=== PATIENT | male | born 1960 | race American Indian/Alaskan Native ===

== ENCOUNTER 2018-09-04 19:07 | Emergency (ER) | payer SELFPAY ==
[2018-09-04] MEDS ORDERED: DUONEB *Not for PRN Use IH ONE ×2 (19:40→19:52)
[2018-09-04] MEDS ORDERED: PROVENTIL IH ONE (20:48)
[2018-09-04] MEDS ORDERED: DECADRON IV ONE (20:48)
[2018-09-04] MEDS ORDERED: TYLENOL #3 PO ONE (20:48)
--- NOTE | 2018-09-04 21:00 | XRay Report ---
PROCEDURE: XR CHEST ROUTINE 2V TECHNIQUE: PA and lateral chest radiographs were obtained. HISTORY: IRMA COMPARISONS: None. FINDINGS: The heart is enlarged. The pulmonary vasculature is not distended. Diffuse patchy alveolar densities are present in the perihilar regions bilaterally. Some of the densities are somewhat nodular. No effu sions are identified. Pulmonary vasculature not significantly distended. No acute bone abnormalities are seen. Degenerative changes are visualized in the thoracic spine. IMPRESSION: Cardiomegaly. Diffuse patchy alveolar densities perihilar regions suggesting pneumonia. Some of the densities are s lightly nodular in appearance. Follow-up chest x-ray recommended to ensure this resolves and there ar e no underlying pulmonary nodules.. This document is electronically signed by Pilo Weldon MD., September 04 2018 08:58:43 PM ET
[2018-09-04] MEDS ORDERED: ATROVENT IH ONE (21:03)
--- NOTE | 2018-09-04 22:12 | Emergency Department Report ---
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 and started coughing and wheezing 2 days ago his albuterol inhaler however on a medication at this time there is no fever no chills no nausea vomiting no chest pain symptoms are relieved temporarily by albuterol inhaler to symptoms are exacerbated by inflammatory exposure Complaint: shortness of breath (wheezing ) Onset/Timin -: days(s) Severity: moderate Quality: other (wheezing ) Consistency: constant Improves With: medication Worsens With: other (environmental exposure ) Known History Of: COPD, other (bronchitis ) Context: recent URI Associated Symptoms: cough, other (sob, wheezing ) Treatments Prior to Arrival: none - Related Data Home Oxygen Therapy: No Previous Rx's Medication Instructions Recorded Last Taken Type ALBUTEROL Inhaler (OR & NICU) 2 puff IH QID PRN #25 inh 09/04/18 Unknown Rx [ProAir HFA Inhaler] ALBUTEROL NEB's [Proventil 0.083% 2.5 mg IH Q4H PRN #1 vial 09/04/18 Unknown Rx NEBS] Azithromycin [Zithromax Z-SHALINI] 250 mg PO DAILY 5 Days #6 tab 09/04/18 Unknown Rx Benzonatate [Tessalon Perles] 100 mg PO Q8HR PRN #30 capsule 09/04/18 Unknown Rx Ibuprofen [Motrin 800 MG tab] 800 mg PO Q8HR PRN #30 tablet 09/04/18 Unknown Rx Nebulizer Accessories [Aeroneb Go] 1 each MC PRN PRN #1 each 09/04/18 Unknown Rx Nebulizer Accessories [Sootheneb 1 each MC PRN PRN #1 each 09/04/18 Unknown Rx [id number] Adult Mask] Allergies Allergy/AdvReac Type Severity Reaction Status Date / Time No Known Allergies Allergy Unverified 09/04/18 20:01 ED Review of Systems ROS: Stated complaint: IRMA Other details as noted in HPI Constitutional: denies: chills, fever Eyes: denies: eye pain, eye discharge, vision change ENT: congestion Respiratory: cough, shortness of breath, wheezing Cardiovascular: denies: chest pain, palpitations Endocrine: no symptoms reported Gastrointestinal: denies: abdominal pain, nausea, diarrhea Genitourinary: denies: urgency, dysuria Musculoskeletal: denies: back pain, joint swelling, arthralgia Skin: denies: rash, lesions Neurological: denies: headache, weakness, paresthesias Psychiatric: denies: anxiety, depression Hematological/Lymphatic: denies: easy bleeding, easy bruising ED Past Medical Hx - Past Medical History Previous Medical History?: No - Surgical History Past Surgical History?: No - Social History Smoking Status: Current Every Day Smoker Substance Use Type: Alcohol - Medications Home Medications: Home Medications Medication Instructions Recorded Confirmed Last Taken Type ALBUTEROL Inhaler (OR & NICU) 2 puff IH QID PRN #25 inh 09/04/18 Unknown Rx [ProAir HFA Inhaler] ALBUTEROL NEB's [Proventil 0.083% 2.5 mg IH Q4H PRN #1 vial 09/04/18 Unknown Rx NEBS] Azithromycin [Zithromax Z-SHALINI] 250 mg PO DAILY 5 Days #6 tab 09/04/18 Unknown Rx Benzonatate [Tessalon Perles] 100 mg PO Q8HR PRN #30 capsule 09/04/18 Unknown Rx Ibuprofen [Motrin 800 MG tab] 800 mg PO Q8HR PRN #30 tablet 09/04/18 Unknown Rx Nebulizer Accessories [Aeroneb Go] 1 each MC PRN PRN #1 each 09/04/18 Unknown Rx Nebulizer Accessories [Sootheneb 1 each MC PRN PRN #1 each 09/04/18 Unknown Rx [id number] Adult Mask] ED Physical Exam - General Limitations: No Limitations General appearance: alert, in no apparent distress - Head Head exam: Present: normocephalic, normal inspection - Eye Eye exam: Present: normal appearance, PERRL, EOMI. Absent: conjunctival injection, nystagmus Pupils: Present: normal accommodation - ENT ENT exam: Present: normal orophraynx, mucous membranes moist, TM's normal bilat erally, normal external ear exam - Neck Neck exam: Present: normal inspection, full ROM, lymphadenopathy. Absent: tenderness, meningismus, thyromegaly - Respiratory Respiratory exam: Present: normal lung sounds bilaterally, wheezes, prolonged expiratory. Absent: respiratory distress, rales, rhonchi, stridor, chest wall tenderness - Cardiovascular Cardiovascular Exam: Present: normal rhythm, tachycardia. Absent: systolic murmur, diastolic murmur, rubs, gallop - GI/Abdominal GI/Abdominal exam: Present: soft, normal bowel sounds. Absent: distended, tenderness, guarding, rebound, rigid, bruit, hernia - Rectal Rectal exam: Present: deferred - Extremities Exam Extremities exam: Present: normal inspection, full ROM, normal capillary refill - Back Exam Back exam: Present: normal inspection, full ROM. Absent: tenderness, CVA tenderness (R), CVA tenderness (L), rash noted - Neurological Exam Neurological exam: Present: alert, oriented X3, normal gait, reflexes normal. Absent: motor sensory deficit - Psychiatric Psychiatric exam: Present: normal affect, normal mood - Skin Skin exam: Present: warm, dry, intact, normal color. Absent: rash ED Course Vital Signs 09/04/18 09/04/18 09/04/18 19:33 19:40 19:54 Temperature 97.9 F Pulse Rate 105 H Pulse Rate [ 110 H 106 H Posterior Bilateral Throughout] Respiratory 18 Rate Respiratory 20 18 Rate [Posterior Bilateral Throughout] Blood Pressure 157/94 O2 Sat by Pulse 98 Oximetry 09/04/18 09/04/18 21:03 21:14 Temperature Pulse Rate Pulse Rate [ 104 H Posterior Bilateral Throughout] Respiratory 20 Rate Respiratory 18 Rate [Posterior Bilateral Throughout] Blood Pressure O2 Sat by Pulse Oximetry ED Medical Decision Making - Radiology Data Radiology results: report reviewed, image reviewed Ordering Physician: ALEKSEY HOLCOMB Date of Service: 09/04/18 Procedure(s): XR chest routine 2V Accession Number(s): [id number] cc: ALEKSEY HOLCOMB Fluoro Time In Minutes: PROCEDURE: XR CHEST ROUTINE 2V TECHNIQUE: PA and lateral chest radiographs were obtained. HISTORY: cchest pain COMPARISONS: None. FINDINGS: Heart: Normal. Mediastinum/Vessels: Normal. Lungs/Pleural space: Normal. Bony thorax: No acute osseous abnormality. IMPRESSION: Normal examination. This document is electronically signed by Surya Carballo MD., September 04 2018 07:57:44 PM ET Transcribed By: JDK Dictated By: MARIA M CARBALLO MD Electronically Authenticated By: MARIA M CARBALLO MD Signed Date/Time: 09/04/181958 DD/ 37 TD/TT: 09/04/181950 - Medical Decision Making Breathig is greatly improved with Nebulizer treatments and steroids given in ed, pt wheezing resolved, cxr : CAP, plan rocephin 1 gm given in in ed ivpb, will dc to home albuterol inhaler, azithromycin, Tessalon pearls, and ibuprofen prn, pt will follow with pcp in 2-3 days return to ed if symptoms worsen. Pt verbalized agreement and understanding of discharge plan. Critical care attestation.: If time is entered above; I have spent that time in minutes in the direct care of this critically ill patient, excluding procedure time. ED Disposition Clinical Impression: CAP (community acquired pneumonia) Qualifiers: Laterality: right Lung location: upper lobe of lung Qualified Code(s): J18.1 - Lobar pneumonia, unspecified organism URI (upper respiratory infection) Qualifiers: URI type: unspecified viral URI Qualified Code(s): J06.9 - Acute upper respiratory infection, unspecified Disposition: DC-01 TO HOME OR SELFCARE Is pt being admited?: No Does the pt Need Aspirin: No Condition: Stable Instructions: Community-acquired Pneumonia (ED), Upper Respiratory Infection (ED) Prescriptions: Nebulizer Accessories [Aeroneb Go] 1 each MC PRN PRN #1 each PRN Reason: as needed Ibuprofen [Motrin 800 MG tab] 800 mg PO Q8HR PRN #30 tablet PRN Reason: pain fever ALBUTEROL Inhaler (OR & NICU) [ProAir HFA Inhaler] 2 puff IH QID PRN #25 inh PRN Reason: Shortness Of Breath wheezing ALBUTEROL NEB's [Proventil 0.083% NEBS] 2.5 mg IH Q4H PRN #1 vial PRN Reason: shortness of breath wheezing Nebulizer Accessories [Sootheneb [id number] Adult Mask] 1 each MC PRN PRN #1 each PRN Reason: as needed Benzonatate [Tessalon Perles] 100 mg PO Q8HR PRN #30 capsule PRN Reason: Cough Azithromycin [Zithromax Z-SHALINI] 250 mg PO DAILY 5 Days #6 tab Referrals: ALEIDA LOYOLA MD [Staff Physician] - 3-5 Days Forms: Work/School Release Form(ED) Time of Disposition: 22:26
[2018-09-04] MEDS ORDERED: ROCEPHIN/NS 1 GM/50 ML 1 GM/50 ML BAG IV ONE (22:14)
[2018-09-04] MEDS ORDERED: XYLOCAINE 1% MPF 5 mL INFILTRATI ONE (22:37)
[2018-09-04] MEDS ORDERED: ROCEPHIN IM ONE (22:37)
[2018-09-05 01:23] VITALS: BP 142/79
== END 2018-09-04 23:30 | disposition home or self-care (01) ==
LOC: ED 19:07
DX: J18.1 Lobar pneumonia, unspecified organism (principal); J06.9 Acute upper respiratory infection, unspecified
CPT/HCPCS: 71046; 94640; 96374; 99284; J0696; J1100

== ENCOUNTER 2018-09-11 02:31 | Inpatient (IN) | payer SELFPAY ==
[2018-09-11 03:21] LABS: Basophils # (Auto) 0.1 K/mm3 (0.0-0.1); Basophils % (Auto) 0.9 % (0.0-1.8); Eosinophils # (Auto) 0.4 K/mm3 (0.0-0.4); Eosinophils % (Auto) 4.3 % (0.0-4.3); Hematocrit 29.3 % (35.5-45.6); Hemoglobin 9.9 gm/dl (11.8-15.2); Lymphocytes # (Auto) 1.6 K/mm3 (1.2-5.4); Lymphocytes % (Auto) 18.7 % (13.4-35.0); Mean Corpuscular HGB Conc 34 % (32-34); Mean Corpuscular Volume 75 fl (84-94); Monocytes # (Auto) 0.7 K/mm3 (0.0-0.8); Monocytes % (Auto) 7.6 % (0.0-7.3); Platelet Count 412 K/mm3 (140-440); Red Blood Count 3.89 M/mm3 (3.65-5.03); Red Cell Distribution Width 17.9 % (13.2-15.2)
[2018-09-11 03:22] LABS: BUN/Creatinine Ratio 10; Blood Urea Nitrogen 10 mg/dL (9-20); Calcium 8.3 mg/dL (8.4-10.2); Hemolysis Index 3
--- NOTE | 2018-09-11 03:42 | XRay Report ---
PROCEDURE: XR CHEST ROUTINE 2V TECHNIQUE: PA and lateral chest radiographs were obtained. HISTORY: IRMA COMPARISONS: None. FINDINGS: Heart: Normal. Mediastinum/Vessels: Normal. Lungs/Pleural space: Bilateral scattered infiltrates in both lungs. Mild bilateral effusions.. Bony thorax: No acute osseous abnormality. IMPRESSION: Mild bilateral scattered infiltrates in both lungs. Mild bilateral effusions. This document is electronically signed by Bri Lobato DO., September 11 2018 03:40:53 AM ET
[2018-09-11] MEDS ORDERED: LASIX IV ONE (04:26)
[2018-09-11] MEDS ORDERED: SODIUM CHLORIDE FLUSH SYRINGE 10 ML IV PRN ×2 (05:44→06:08)
[2018-09-11] MEDS ORDERED: TYLENOL PO PRN ×2 (05:44→06:08)
[2018-09-11] MEDS ORDERED: ZOFRAN IV PRN ×2 (05:44→06:08)
[2018-09-11] MEDS ORDERED: PROVENTIL IH PRN (06:08)
--- NOTE | 2018-09-11 06:16 | Emergency Department Report ---
HPI - General Chief Complaint: Dyspnea/Respdistress Time Seen by Provider: 09/11/18 04:27 - HPI HPI: 57-year-old -[place] male presents to the emergency department with complaint of a one-week history of shortness of breath. There is an associated productive cough and the patient also complains of some swelling to the bilateral legs. The patient was seen here a few days ago and was diagnosed with pneumonia. He says that he has been taking his medications and treatment compliantly without much relief. He otherwise denies any past medical history but admits that he does not follow with a primary care physician regularly. He is a tobacco smoker but denies any illicit drug use. He denies any chest pain, fever, nausea, vomiting or diaphoresis. ED Past Medical Hx - Past Medical History Previous Medical History?: Yes Additional medical history: Pneumonia - Surgical History Past Surgical History?: No - Social History Smoking Status: Former Smoker Substance Use Type: None - Medications Home Medications: Home Medications Medication Instructions Recorded Confirmed Last Taken Type ALBUTEROL Inhaler (OR & NICU) 2 puff IH QID PRN #25 inh 09/04/18 09/11/18 Unknown Rx [ProAir HFA Inhaler] ALBUTEROL NEB's [Proventil 0.083% 2.5 mg IH Q4H PRN #1 vial 09/04/18 09/11/18 Unknown Rx NEBS] Benzonatate [Tessalon Perles] 100 mg PO Q8HR PRN #30 capsule 09/04/18 09/11/18 Unknown Rx Ibuprofen [Motrin 800 MG tab] 800 mg PO Q8HR PRN #30 tablet 09/04/18 09/11/18 Unknown Rx Nebulizer Accessories [Aeroneb Go] 1 each MC PRN PRN #1 each 09/04/18 09/11/18 Unknown Rx Nebulizer Accessories [Sootheneb 1 each MC PRN PRN #1 each 09/04/18 09/11/18 Unknown Rx [id number] Adult Mask] ED Review of Systems ROS: Stated complaint: IRMA Other details as noted in HPI Comment: All other systems reviewed and negative Constitutional: denies: chills, fever Eyes: denies: eye pain, vision change ENT: denies: ear pain, throat pain Respiratory: cough, shortness of breath, SOB with exertion Cardiovascular: edema. denies: chest pain Gastrointestinal: denies: abdominal pain, vomiting Genitourinary: denies: dysuria, frequency Musculoskeletal: denies: back pain, arthralgia Skin: denies: rash, lesions Neurological: denies: headache, weakness Physical Exam - Physical Exam Vital Signs: Vital Signs 09/11/18 09/11/18 09/11/18 02:37 03:09 03:30 Temperature 98.6 F 98.4 F Pulse Rate 113 H 105 H 104 H Respiratory 26 H 26 H 23 Rate Blood Pressure 163/89 141/73 Blood Pressure 141/73 [Left] O2 Sat by Pulse 97 95 96 Oximetry 09/11/18 04:00 Temperature Pulse Rate 104 H Respiratory 25 H Rate Blood Pressure 136/83 Blood Pressure [Left] O2 Sat by Pulse 96 Oximetry Physical Exam: GENERAL: The patient is well-developed well-nourished. HENT: Normocephalic. Atraumatic. Patient has moist mucous membranes. EYES: Extraocular motions are intact. Pupils equal reactive to light bilaterally. NECK: Supple. Trachea is midline. CHEST/LUNGS: Coarse breath sounds throughout the chest. No tachypnea or acces brannon muscle use. There is no respiratory distress noted. HEART/CARDIOVASCULAR: Regular. There is no tachycardia. There is no murmur. ABDOMEN: Abdomen is soft, nontender. Patient has normal bowel sounds. There is no abdominal distention. SKIN: One to 2+ pitting edema of the bilateral lower extremities. NEURO: The patient is awake, alert, and oriented. The patient is cooperative. The patient has no focal neurologic deficits. The patient has normal speech. MUSCULOSKELETAL: There is no tenderness or deformity. There is no evidence of acute injury. ED Course Vital Signs 09/11/18 09/11/18 09/11/18 02:37 03:09 03:30 Temperature 98.6 F 98.4 F Pulse Rate 113 H 105 H 104 H Respiratory 26 H 26 H 23 Rate Blood Pressure 163/89 141/73 Blood Pressure 141/73 [Left] O2 Sat by Pulse 97 95 96 Oximetry 09/11/18 04:00 Temperature Pulse Rate 104 H Respiratory 25 H Rate Blood Pressure 136/83 Blood Pressure [Left] O2 Sat by Pulse 96 Oximetry ED Medical Decision Making - Lab Data Result diagrams: 09/11/18 02:51 09/11/18 02:51 - EKG Data -: EKG Interpreted by Sd EKG shows normal: sinus rhythm, axis, intervals (prolonged QTC), QRS complexes, ST-T waves Rate: tachycardia (108 bpm) - EKG Data When compared to previous EKG there are: previous EKG unavailable Interpretation: other (sinus tachycardia, prolonged QTC, no ST elevation IL) - Radiology Data Radiology results: report reviewed PROCEDURE: XR CHEST ROUTINE 2V TECHNIQUE: PA and lateral chest radiographs were obtained. HISTORY: IRMA COMPARISONS: None. FINDINGS: Heart: Normal. Mediastinum/Vessels: Normal. Lungs/Pleural space: Bilateral scattered infiltrates in both lungs. Mild bilateral effusions.. Bony thorax: No acute osseous abnormality. IMPRESSION: Mild bilateral scattered infiltrates in both lungs. Mild bilateral effusions. This document is electronically signed by Bri Lobato DO., September 11 2018 03:40:53 AM ET Transcribed By: [facility] Dictated By: BRI LOBATO MD Electronically Authenticated By: BRI LOBATO MD Signed Date/Time: 09/11/18 0342 - Medical Decision Making This patient presents to the emergency department with some continued shortness of breath even after finishing his treatment for some recently diagnosed pneumonia. He has coarse breath sounds on examination. He has 1-2+ pitting edema bilateral lower extremities. Chest x-ray today may still show some residual infiltrates but otherwise shows some pulmonary vascular congestion and pulmonary edema concerning for CHF. Labs show some mild anemia the patient has a BNP level of greater than 2700. An IV was placed and he was given some Lasix to start diuresis. Patient did have a slightly elevated and equivocal d-dimer level and has been set up to have a VQ scan this morning. However the patient will be admitted to the hospital for further evaluation and possible echocardiogram or cardiology consultation. He was accepted for admission by the hospitalist service. - Differential Diagnosis CHF, pneumonia, bronchitis, PE Critical Care Time: No Critical care attestation.: If time is entered above; I have spent that time in minutes in the direct care of this critically ill patient, excluding procedure time. ED Disposition Clinical Impression: New onset of congestive heart failure, Tobacco use Anemia Qualifiers: Anemia type: unspecified type Qualified Code(s): D64.9 - Anemia, unspecified Dyspnea Qualifiers: Dyspnea type: shortness of breath Qualified Code(s): R06.02 - Shortness of breath; R06.00 - Dyspnea, unspecified; R06.01 - Orthopnea Disposition: DC-09 OP ADMIT IP TO THIS HOSP Is pt being admited?: Yes Condition: Fair Referrals: MONTY ALFONSO JR, MD [Primary Care Provider] - 3-5 Days Time of Disposition: 06:17
--- NOTE | 2018-09-11 06:28 | History and Physical Report ---
<MEGAN MARY - Last Filed: 09/11/18 06:20> History of Present Illness Date of examination: 09/11/18 Date of admission: 09/11/2018 Chief complaint: Bilateral lower extremity edema, shortness of breath History of present illness: 57-year-old -[place] male who is an ongoing smoker with history of COPD presents to [facility] ED with complaints of bilateral lower extremity edema and shortness of breath with activity. Patient states that for the past 3 days he has been experiencing worsening bilateral lower extremity edema and shortness of breath with exertion. Patient states that he is unable to take out the garbage without becoming short of breath. He denies any previous cardiac history or workup. 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 Patient also complains of wheezing and cough with yellow sputum production. Of note patient was seen in ED on 09/04 t reated for pneumonia. Denies: Fever, nausea, vomiting, diarrhea, headache, or hemoptysis Past History Past Medical History: COPD Past Surgical History: No surgical history Social history: , lives with family, smoking (current everyday smoker) Family history: no significant family history Medications and Allergies Allergies Allergy/AdvReac Type Severity Reaction Status Date / Time No Known Allergies Allergy Unverified 09/04/18 20:01 Home Medications Medication Instructions Recorded Confirmed Last Taken Type ALBUTEROL Inhaler (OR & NICU) 2 puff IH QID PRN #25 inh 09/04/18 09/11/18 Unknown Rx [ProAir HFA Inhaler] ALBUTEROL NEB's [Proventil 0.083% 2.5 mg IH Q4H PRN #1 vial 09/04/18 09/11/18 Unknown Rx NEBS] Benzonatate [Tessalon Perles] 100 mg PO Q8HR PRN #30 capsule 09/04/18 09/11/18 Unknown Rx Ibuprofen [Motrin 800 MG tab] 800 mg PO Q8HR PRN #30 tablet 09/04/18 09/11/18 Unknown Rx Nebulizer Accessories [Aeroneb Go] 1 each MC PRN PRN #1 each 09/04/18 09/11/18 Unknown Rx Nebulizer Accessories [Sootheneb 1 each MC PRN PRN #1 each 09/04/18 09/11/18 Unknown Rx [id number] Adult Mask] Active Meds: Active Medications Acetaminophen (Tylenol) 650 mg PO Q4H PRN PRN Reason: Pain MILD(1-3)/Fever >100.5/[place] Albuterol (Proventil) 2.5 mg IH Q4HRT PRN PRN Reason: Shortness Of Breath Albuterol/Ipratropium (Duoneb *Not For Prn Use*) 1 ampul IH Q6HRT [facility] Aspirin (Baby Aspirin) 81 mg PO QDAY [facility] Budesonide (Pulmicort) 0.5 mg IH Q12HRT [facility] Docusate Sodium (Colace) 100 mg PO BID [facility] Furosemide (Lasix) 40 mg IV 0600,1800 [facility] Guaifenesin (Mucinex Er) 600 mg PO BID [facility] Levofloxacin/Dextrose (Levaquin 500mg/100ml) 500 mg in 100 mls @ 100 mls/hr IV Q24HR [facility]; Protocol Methylprednisolone Sodium Succinate (Solu-Medrol) 60 mg IV Q8HR [facility] Metoprolol Succinate (Toprol Xl) 25 mg PO QDAY [facility] Ondansetron HCl (Zofran) 4 mg IV Q8H PRN PRN Reason: Nausea And Vomiting Sodium Chloride (Sodium Chloride Flush Syringe 10 Ml) 10 ml IV BID [facility] Sodium Chloride (Sodium Chloride Flush Syringe 10 Ml) 10 ml IV PRN PRN PRN Reason: LINE FLUSH Review of Systems All systems: negative (reviewed and no additional remarkable complaints except as noted below) Cardiovascular: edema, shortness of breath, dyspnea on exertion, leg edema (bilateral lower extremity) Respiratory: cough with sputum (yellow sputum), shortness of breath, dyspnea on exertion, wheezing Exam - Physical Exam Narrative exam: Physical exam General appearance: Present: No acute distress, alert and oriented 3, pleasant middle age -[place] male - EENT Eyes: Present: PERRL, EOM intact ENT: hearing intact, normal dentition - Neck Neck: Present: supple, normal ROM - Respiratory Respiratory effort: Non-labored Respiratory: Scattered wheezes and faint right basilar crackles - Cardiovascular Heart rate: 108 (bpm) Rhythm: Sinus tach Heart Sounds: Present: S1 & S2. Absent: rub, click - Extremities Extremities: no ischemia, pulses intact, abnormal (bilateral lower extremity pitting edema) - Peripheral Assessment Peripheral Pulses: within normal limits - Abdominal General gastrointestinal: soft, non-tender, normal bowel sounds - Integumentary Integumentary: Present: warm, dry - Musculoskeletal Musculoskeletal: Able to move all extremities -Neurological Neurological: CN II-XII intact - Psychiatric Psychiatric: cooperative - Constitutional Vitals: Temp Pulse Resp BP Pulse Ox 98.4 F 104 H 25 H 136/83 96 09/11/18 03:09 09/11/18 04:00 09/11/18 04:00 09/11/18 04:00 09/11/18 04:00 Results - Labs CBC & Chem 7: 09/11/18 02:51 09/11/18 02:51 Labs: Laboratory Last Values WBC 8.8 K/mm3 (4.5-11.0) 09/11/18 02:51 RBC 3.89 M/mm3 (3.65-5.03) 09/11/18 02:51 Hgb 9.9 gm/dl (11.8-15.2) L 09/11/18 02:51 Hct 29.3 % (35.5-45.6) L 09/11/18 02:51 MCV 75 fl (84-94) L 09/11/18 02:51 MCH 25 pg (28-32) L 09/11/18 02:51 MCHC 34 % (32-34) 09/11/18 02:51 RDW 17.9 % (13.2-15.2) H 09/11/18 02:51 Plt Count 412 K/mm3 (140-440) 09/11/18 02:51 Lymph % (Auto) 18.7 % (13.4-35.0) 09/11/18 02:51 [place] % (Auto) 7.6 % (0.0-7.3) H 09/11/18 02:51 Eos % (Auto) 4.3 % (0.0-4.3) 09/11/18 02:51 Baso % (Auto) 0.9 % (0.0-1.8) 09/11/18 02:51 Lymph # 1.6 K/mm3 (1.2-5.4) 09/11/18 02:51 [place] # 0.7 K/mm3 (0.0-0.8) 09/11/18 02:51 Eos # 0.4 K/mm3 (0.0-0.4) 09/11/18 02:51 Baso # 0.1 K/mm3 (0.0-0.1) 09/11/18 02:51 Seg Neutrophils % 68.5 % (40.0-70.0) 09/11/18 02:51 Seg Neutrophils # 6.0 K/mm3 (1.8-7.7) 09/11/18 02:51 381.33 ng/mlDDU (0-234) H 09/11/18 04:33 Sodium 138 mmol/L (137-145) 09/11/18 02:51 Potassium 3.7 mmol/L (3.6-5.0) 09/11/18 02:51 Chloride 101.2 mmol/L (98-107) 09/11/18 02:51 Carbon Dioxide 23 mmol/L (22-30) 09/11/18 02:51 18 mmol/L 09/11/18 02:51 BUN 10 mg/dL (9-20) 09/11/18 02:51 1.0 mg/dL (0.8-1.5) 09/11/18 02:51 Estimated GFR > 60 ml/min 09/11/18 02:51 10 % 09/11/18 02:51 Glucose 99 mg/dL (75-100) 09/11/18 02:51 Calcium 8.3 mg/dL (8.4-10.2) L 09/11/18 02:51 < 0.010 ng/mL (0.00-0.029) 09/11/18 04:33 NT-Pro-B Natriuret Pep 2708 pg/mL (0-900) H 09/11/18 02:51 - Imaging and Cardiology EKG: image reviewed (sinus tachycardia 108 bpm) Chest x-ray: report reviewed ( Mild bilateral scattered infiltrates in both lungs. Mild bilateral effusions. ), image reviewed Assessment and Plan Assessment and plan: 57-year-old -[place] male who is an ongoing smoker with history of COPD presents to [facility] ED with complaints of bilateral lower extremity edema and shortness of breath with activity. On examination patient has bilateral 3+ pitting edema. Profound elevation in BNP at 278. D-dimer is also elevated at 381.3. EKG unremarkable for acute ischemic abnormalities. CXR shows mild bi lateral infiltrates. Will admit to Telemetry. Acute CHF-new onset Acute exacerbation COPD Hypertension Anemia Elevated d-dimer Elevated BNP R/O PE Tobacco abuse Plan: Continue supportive care Consult cardiology pending Echocardiogram pending VQ scan pending Trend troponin Monitor BP Start metoprolol 25 mg daily Start IV Lasix 40mg daily ASA 81mg Start Levaquin 500 mg every 24 hours Scheduled DuoNeb nebs and Pulmicort, albuterol when necessary Solu-Medrol 60 mg every 8 hours Mucinex Monitor electrolytes, replete as needed Monitor hemoglobin, transfuse as needed Counseled for smoking cessation, refuses nicotine patch DVT PPX on Lovenox Advance Directives: No VTE prophylaxis?: Chemical Reason for no VTE Prophylaxis: Surgical contraindication Plan of care discussed with patient/family: Yes <RENATO GRAYSON - Last Filed: 09/11/18 21:07> History of Present Illness Date of admission: 09/11/18 05:44 Medications and Allergies Active Meds: Active Medications Acetaminophen (Tylenol) 650 mg PO Q4H PRN PRN Reason: Pain MILD(1-3)/Fever >100.5/[place] Albuterol (Proventil) 2.5 mg IH Q4HRT PRN PRN Reason: Shortness Of Breath Last Admin: 09/11/18 16:25 Dose: 2.5 mg Documented by: Albuterol/Ipratropium (Duoneb *Not For Prn Use*) 1 ampul IH Q12HRT [facility] Last Admin: 09/11/18 20:55 Dose: Not Given Documented by: Aspirin (Baby Aspirin) 81 mg PO QDAY [facility] Last Admin: 09/11/18 10:38 Dose: 81 mg Documented by: Budesonide (Pulmicort) 0.5 mg IH Q12HRT [facility] Last Admin: 09/11/18 20:55 Dose: Not Given Documented by: Docusate Sodium (Colace) 100 mg PO BID [facility] Last Admin: 09/11/18 11:45 Dose: Not Given Documented by: Enoxaparin Sodium (Lovenox) 100 mg SUB-Q Q12HR [facility] Last Admin: 09/11/18 14:18 Dose: 100 mg Documented by: Furosemide (Lasix) 40 mg IV DAILY [facility] Last Admin: 09/11/18 10:38 Dose: 40 mg Documented by: Guaifenesin (Mucinex Er) 600 mg PO BID [facility] Last Admin: 09/11/18 10:49 Dose: 600 mg Documented by: Levofloxacin/Dextrose (Levaquin 500mg/100ml) 500 mg in 100 mls @ 100 mls/hr IV Q24HR [facility]; Protocol Last Admin: 09/11/18 10:38 Dose: 100 mls/hr Documented by: Methylprednisolone Sodium Succinate (Solu-Medrol) 20 mg IV Q8H [facility] Last Admin: 09/11/18 10:37 Dose: 20 mg Documented by: Metoprolol Succinate (Toprol Xl) 25 mg PO QDAY [facility] Last Admin: 09/11/18 14:30 Dose: 25 mg Documented by: Ondansetron HCl (Zofran) 4 mg IV Q8H PRN PRN Reason: Nausea And Vomiting Sodium Chloride (Sodium Chloride Flush Syringe 10 Ml) 10 ml IV BID [facility] Last Admin: 09/11/18 11:45 Dose: 10 ml Documented by: Sodium Chloride (Sodium Chloride Flush Syringe 10 Ml) 10 ml IV PRN PRN PRN Reason: LINE FLUSH Exam - Constitutional Vitals: Temp Pulse Resp BP Pulse Ox 98.2 F 103 H 17 161/104 100 09/11/18 19:00 09/11/18 17:07 09/11/18 16:20 09/11/18 17:07 09/11/18 20:58 Results - Labs CBC & Chem 7: 09/11/18 02:51 09/11/18 02:51 Labs: Laboratory Last Values WBC 8.8 K/mm3 (4.5-11.0) 09/11/18 02:51 RBC 3.89 M/mm3 (3.65-5.03) 09/11/18 02:51 Hgb 9.9 gm/dl (11.8-15.2) L 09/11/18 02:51 Hct 29.3 % (35.5-45.6) L 09/11/18 02:51 MCV 75 fl (84-94) L 09/11/18 02:51 MCH 25 pg (28-32) L 09/11/18 02:51 MCHC 34 % (32-34) 09/11/18 02:51 RDW 17.9 % (13.2-15.2) H 09/11/18 02:51 Plt Count 412 K/mm3 (140-440) 09/11/18 02:51 Lymph % (Auto) 18.7 % (13.4-35.0) 09/11/18 02:51 [place] % (Auto) 7.6 % (0.0-7.3) H 09/11/18 02:51 Eos % (Auto) 4.3 % (0.0-4.3) 09/11/18 02:51 Baso % (Auto) 0.9 % (0.0-1.8) 09/11/18 02:51 Lymph # 1.6 K/mm3 (1.2-5.4) 09/11/18 02:51 [place] # 0.7 K/mm3 (0.0-0.8) 09/11/18 02:51 Eos # 0.4 K/mm3 (0.0-0.4) 09/11/18 02:51 Baso # 0.1 K/mm3 (0.0-0.1) 09/11/18 02:51 Seg Neutrophils % 68.5 % (40.0-70.0) 09/11/18 02:51 Seg Neutrophils # 6.0 K/mm3 (1.8-7.7) 09/11/18 02:51 381.33 ng/mlDDU (0-234) H 09/11/18 04:33 Sodium 138 mmol/L (137-145) 09/11/18 02:51 Potassium 3.7 mmol/L (3.6-5.0) 09/11/18 02:51 Chloride 101.2 mmol/L (98-107) 09/11/18 02:51 Carbon Dioxide 23 mmol/L (22-30) 09/11/18 02:51 18 mmol/L 09/11/18 02:51 BUN 10 mg/dL (9-20) 09/11/18 02:51 1.0 mg/dL (0.8-1.5) 09/11/18 02:51 Estimated GFR > 60 ml/min 09/11/18 02:51 10 % 09/11/18 02:51 Glucose 99 mg/dL (75-100) 09/11/18 02:51 Calcium 8.3 mg/dL (8.4-10.2) L 09/11/18 02:51 < 0.010 ng/mL (0.00-0.029) 09/11/18 07:23 NT-Pro-B Natriuret Pep 2708 pg/mL (0-900) H 09/11/18 02:51 Assessment and Plan Assessment and plan: I personally discussed the patient with the DRUM SAW OPERATOR-C. I agree with the above assessment and plan
[2018-09-11] MEDS ORDERED: DUONEB *Not for PRN Use IH SCH (08:00)
--- NOTE | 2018-09-11 08:45 | Progress Note ---
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 He was admitted for CHF * CXR 2view Impression: Mild bilateral scattered infiltrates in both lungs. Mild bilateral effusions. * Initial labs: D-Dimer 381.33, proBNP 2708, hgb 9.9 with MCV 75 normal plt, wbc * v/q scan intermediate for PE (in the setting of abnormal cxr, not really sure; therefore, treat for PE until CTA chest is available) Acute CHF-new onset, suspect systolic: treat with iv lasix, get ECHO, Cardiology consulted Acute exacerbation COPD, high complex medical decision, using steroids will worsen CHF via fluid retention: use nebs, abx and lower dose steroids Hypertension: low salt diet, careful starting bblocker in acute CHF Anemia, microcytic: [employer] Superintendent on stop smoking and getting a outpatient Colonoscopy Elevated d-dimer, R/O PE, v/q scan intermediate, CT not available due to staffing: start therapeutic sq Lovenox. Tobacco abuse, Counseled for smoking cessation, refuses nicotine patch DVT PPX on Lovenox prolonged inpatient services 32 minutes History Interval history: Patient was seen and examined. Follow-up on current diagnosis of CHF. No overnight events reported to me. Patient denies any chest pain, shortness breath, nausea/vomiting or severe headaches. Imaging, nursing note, chart, labs and old chart reviewed. Discussed with patient. Hospitalist Physical - Physical exam Narrative exam: Gen: WDWN, NAD, Awake, Alert, Orientated HEENT: NCAT, EOMI, PERRL, OP Clear Neck: supple, no adenopathy, no thyromegaly, JVD CVS/Heart: Regular tachycardia, normal S1S2, pulses present bilaterally Chest/Lungs: bibasilar crackles, diminished bs Symmetrical chest expansion, good air entry bilaterally GI/Abdomen: soft, NTND, good bowel sounds, no guarding or rebound /Bladder: no suprapubic tenderness, no CVA or paraspinal tenderness Extermity/Skin: +pitting BLE edema, no obvious rash MSK: FROM x 4 Neuro: CN 2-12 grossly intact, no new focal deficits Psych: calm - Constitutional Vitals: Temp Pulse Resp BP Pulse Ox 98.7 F 110 H 18 113/65 94 09/11/18 08:00 09/11/18 08:00 09/11/18 08:00 09/11/18 08:00 09/11/18 08:00 Results - Labs CBC & Chem 7: 09/11/18 02:51 09/11/18 02:51 Labs: Laboratory Last Values WBC 8.8 K/mm3 (4.5-11.0) 09/11/18 02:51 RBC 3.89 M/mm3 (3.65-5.03) 09/11/18 02:51 Hgb 9.9 gm/dl (11.8-15.2) L 09/11/18 02:51 Hct 29.3 % (35.5-45.6) L 09/11/18 02:51 MCV 75 fl (84-94) L 09/11/18 02:51 MCH 25 pg (28-32) L 09/11/18 02:51 MCHC 34 % (32-34) 09/11/18 02:51 RDW 17.9 % (13.2-15.2) H 09/11/18 02:51 Plt Count 412 K/mm3 (140-440) 09/11/18 02:51 Lymph % (Auto) 18.7 % (13.4-35.0) 09/11/18 02:51 [place] % (Auto) 7.6 % (0.0-7.3) H 09/11/18 02:51 Eos % (Auto) 4.3 % (0.0-4.3) 09/11/18 02:51 Baso % (Auto) 0.9 % (0.0-1.8) 09/11/18 02:51 Lymph # 1.6 K/mm3 (1.2-5.4) 09/11/18 02:51 [place] # 0.7 K/mm3 (0.0-0.8) 09/11/18 02:51 Eos # 0.4 K/mm3 (0.0-0.4) 09/11/18 02:51 Baso # 0.1 K/mm3 (0.0-0.1) 09/11/18 02:51 Seg Neutrophils % 68.5 % (40.0-70.0) 09/11/18 02:51 Seg Neutrophils # 6.0 K/mm3 (1.8-7.7) 09/11/18 02:51 381.33 ng/mlDDU (0-234) H 09/11/18 04:33 Sodium 138 mmol/L (137-145) 09/11/18 02:51 Potassium 3.7 mmol/L (3.6-5.0) 09/11/18 02:51 Chloride 101.2 mmol/L (98-107) 09/11/18 02:51 Carbon Dioxide 23 mmol/L (22-30) 09/11/18 02:51 18 mmol/L 09/11/18 02:51 BUN 10 mg/dL (9-20) 09/11/18 02:51 1.0 mg/dL (0.8-1.5) 09/11/18 02:51 Estimated GFR > 60 ml/min 09/11/18 02:51 10 % 09/11/18 02:51 Glucose 99 mg/dL (75-100) 09/11/18 02:51 Calcium 8.3 mg/dL (8.4-10.2) L 09/11/18 02:51 < 0.010 ng/mL (0.00-0.029) 09/11/18 07:23 NT-Pro-B Natriuret Pep 2708 pg/mL (0-900) H 09/11/18 02:51 Active Medications - Current Medications Current Medications: Generic Name Dose Route Start Last Admin Trade Name Freq PRN Reason Stop Dose Admin Acetaminophen 650 mg 09/11/18 05:44 Tylenol PO Q4H PRN Pain MILD(1-3)/Fever >100.5/[place] Albuterol 2.5 mg 09/11/18 06:08 Proventil IH Q4HRT PRN Shortness Of Breath Albuterol/Ipratropium 1 ampul 09/11/18 08:00 09/11/18 08:17 Duoneb *Not For Prn Use* IH 1 ampul Q6HRT [facility] Administration Aspirin 81 mg 09/11/18 10:00 Baby Aspirin PO QDAY [facility] Budesonide 0.5 mg 09/11/18 08:00 Pulmicort IH Q12HRT [facility] Docusate Sodium 100 mg 09/11/18 10:00 Colace PO BID [facility] Enoxaparin Sodium 40 mg 09/11/18 22:00 Lovenox SUB-Q QDAY@2200 [facility] Furosemide 40 mg 09/11/18 10:00 Lasix IV DAILY [facility] Guaifenesin 600 mg 09/11/18 10:00 Mucinex Er PO BID [facility] Levofloxacin/Dextrose 500 mg in 100 mls @ 100 mls/hr 09/11/18 10:00 Levaquin 500mg/100ml IV Q24HR [facility] Protocol Methylprednisolone Sodium Succinate 60 mg 09/11/18 14:00 Solu-Medrol IV Q8HR [facility] Metoprolol Succinate 25 mg 09/11/18 10:00 Toprol Xl PO QDAY [facility] Ondansetron HCl 4 mg 09/11/18 05:44 Zofran IV Q8H PRN Nausea And Vomiting Sodium Chloride 10 ml 09/11/18 10:00 Sodium Chloride Flush Syringe 10 Ml IV BID [facility] Sodium Chloride 10 ml 09/11/18 05:44 Sodium Chloride Flush Syringe 10 Ml IV PRN PRN LINE FLUSH
[2018-09-11] MEDS ORDERED: SODIUM CHLORIDE FLUSH SYRINGE 10 ML IV SCH (10:00)
[2018-09-11] MEDS ORDERED: SOLU-Medrol ONE (10:17)
[2018-09-11] MEDS ORDERED: BABY ASPIRIN ONE (10:17)
[2018-09-11] MEDS ORDERED: LASIX ONE (10:18)
[2018-09-11] MEDS ORDERED: LEVAQUIN 500MG/100ML 500 MG/100 ML BAG IV ONE (10:18)
[2018-09-11] MEDS ORDERED: TYLENOL ONE (10:29)
[2018-09-11] MEDS: SOLU-Medrol IV SCH ×2 (10:37→22:33)
[2018-09-11] MEDS: LEVAQUIN 500MG/100ML 500 MG/100 ML BAG IV SCH (10:38)
[2018-09-11] MEDS: LASIX IV SCH (10:38)
[2018-09-11] MEDS: BABY ASPIRIN PO SCH (10:38)
[2018-09-11] MEDS ORDERED: MUCINEX ER PO ONE (10:44)
[2018-09-11] MEDS: MUCINEX ER PO SCH ×2 (10:49→22:33)
[2018-09-11] MEDS ORDERED: DUONEB *Not for PRN Use IH ONE (10:53)
[2018-09-11] MEDS: DUONEB *Not for PRN Use IH SCH ×2 (10:55→20:55)
[2018-09-11] MEDS: PULMICORT IH SCH ×2 (11:10→20:55)
--- NOTE | 2018-09-11 11:24 | Nuclear Medicine Report ---
PROCEDURE: NM LUNG SCAN PERF/VENT TECHNIQUE: 6.0 mCi Tc-99m MAA was injected IV for pulmonary perfusion imaging in multiple projection s. 19.7 mCi Xenon-133 was inhaled for pulmonary ventilation imaging in multiple projections. HISTORY: SOB, elevated dimer COMPARISONS: Chest x-ray September 11, 2018. FINDINGS: Ventilation: Heterogeneous. Perfusion: Triple matched small to moderate defect in both upper and lower lungs. IMPRESSION: * Based on the PIOPED study, findings represent intermediate probability for PE. This document is electronically signed by Jese Sebastian MD., September 11 2018 11:22:10 AM ET
[2018-09-11] MEDS: SODIUM CHLORIDE FLUSH SYRINGE 10 ML IV SCH ×2 (11:45→22:34)
[2018-09-11] MEDS: COLACE PO SCH ×2 (11:45→22:33)
[2018-09-11] MEDS: TOPROL XL PO SCH ×2 (11:55→14:30)
[2018-09-11] MEDS ORDERED: SOLU-Medrol IV SCH (14:00)
[2018-09-11] MEDS ORDERED: LOVENOX SUB-Q ONE (14:12)
[2018-09-11] MEDS: LOVENOX SUB-Q SCH ×2 (14:18→22:34)
[2018-09-11] MEDS ORDERED: PROVENTIL IH ONE (16:24)
[2018-09-11] MEDS ORDERED: LASIX IV SCH (18:00)
--- NOTE | 2018-09-11 21:48 | Consultation ---
History of Present Illness Consult date: 09/11/18 Consult reason: shortness of breath History of present illness: 57 year old male with no previous medical history presenting with SOB, edema, wheezing and productive cough. CXR showing cardiomegaly and bilateral pulmonary infiltrates. Troponin negative but BNP is elevated. ECG showing no ischemic findings.Patient is a smoker. Family history is only pertinent for hypertension. Past History Past Medical History: COPD Past Surgical History: No surgical history Social history: , lives with family, smoking (current everyday smoker) Family history: no significant family history Medications and Allergies Allergies Allergy/AdvReac Type Severity Reaction Status Date / Time No Known Allergies Allergy Unverified 09/04/18 20:01 Home Medications Medication Instructions Recorded Confirmed Last Taken Type ALBUTEROL Inhaler (OR & NICU) 2 puff IH QID PRN #25 inh 09/04/18 09/11/18 Unknown Rx [ProAir HFA Inhaler] ALBUTEROL NEB's [Proventil 0.083% 2.5 mg IH Q4H PRN #1 vial 09/04/18 09/11/18 Unknown Rx NEBS] Benzonatate [Tessalon Perles] 100 mg PO Q8HR PRN #30 capsule 09/04/18 09/11/18 Unknown Rx Ibuprofen [Motrin 800 MG tab] 800 mg PO Q8HR PRN #30 tablet 09/04/18 09/11/18 Unknown Rx Nebulizer Accessories [Aeroneb Go] 1 each MC PRN PRN #1 each 09/04/18 09/11/18 Unknown Rx Nebulizer Accessories [Sootheneb 1 each MC PRN PRN #1 each 09/04/18 09/11/18 Unknown Rx [id number] Adult Mask] Active Meds: Active Medications Acetaminophen (Tylenol) 650 mg PO Q4H PRN PRN Reason: Pain MILD(1-3)/Fever >100.5/[place] Albuterol (Proventil) 2.5 mg IH Q4HRT PRN PRN Reason: Shortness Of Breath Last Admin: 09/11/18 16:25 Dose: 2.5 mg Documented by: Albuterol/Ipratropium (Duoneb *Not For Prn Use*) 1 ampul IH Q12HRT [facility]LEN Last Admin: 09/11/18 20:55 Dose: Not Given Documented by: Aspirin (Baby Aspirin) 81 mg PO QDAY [facility] Last Admin: 09/11/18 10:38 Dose: 81 mg Documented by: Budesonide (Pulmicort) 0.5 mg IH Q12HRT [facility] Last Admin: 09/11/18 20:55 Dose: Not Given Documented by: Docusate Sodium (Colace) 100 mg PO BID [facility] Last Admin: 09/11/18 11:45 Dose: Not Given Documented by: Enoxaparin Sodium (Lovenox) 100 mg SUB-Q Q12HR [facility] Last Admin: 09/11/18 14:18 Dose: 100 mg Documented by: Furosemide (Lasix) 40 mg IV DAILY [facility] Last Admin: 09/11/18 10:38 Dose: 40 mg Documented by: Guaifenesin (Mucinex Er) 600 mg PO BID [facility] Last Admin: 09/11/18 10:49 Dose: 600 mg Documented by: Levofloxacin/Dextrose (Levaquin 500mg/100ml) 500 mg in 100 mls @ 100 mls/hr IV Q24HR [facility]; Protocol Last Admin: 09/11/18 10:38 Dose: 100 mls/hr Documented by: Methylprednisolone Sodium Succinate (Solu-Medrol) 20 mg IV Q8H [facility] Last Admin: 09/11/18 10:37 Dose: 20 mg Documented by: Metoprolol Succinate (Toprol Xl) 25 mg PO QDAY [facility] Last Admin: 09/11/18 14:30 Dose: 25 mg Documented by: Ondansetron HCl (Zofran) 4 mg IV Q8H PRN PRN Reason: Nausea And Vomiting Sodium Chloride (Sodium Chloride Flush Syringe 10 Ml) 10 ml IV BID [facility] Last Admin: 09/11/18 11:45 Dose: 10 ml Documented by: Sodium Chloride (Sodium Chloride Flush Syringe 10 Ml) 10 ml IV PRN PRN PRN Reason: LINE FLUSH Review of Systems All systems: negative Physical Examination Vital Signs Temp Pulse Resp BP Pulse Ox 98.6 F 113 H 26 H 163/89 97 09/11/18 02:37 09/11/18 02:37 09/11/18 02:37 09/11/18 02:37 09/11/18 02:37 General appearance: no acute distress HEENT: Positive: PERRL Neck: Positive: neck supple Cardiac: Positive: Reg Rate and Rhythm Lungs: Positive: Rales Abdomen: Positive: Soft Extremities: Present: edema Results 09/11/18 02:51 09/11/18 02:51 Cardiac Enzymes 09/11/18 09/11/18 09/11/18 Range/Units 02:51 02:51 02:51 WBC 8.8 (4.5-11.0) K/mm3 RBC 3.89 (3.65-5.03) M/mm3 Hgb 9.9 L (11.8-15.2) gm/dl Hct 29.3 L (35.5-45.6) % MCV 75 L (84-94) fl MCH 25 L (28-32) pg MCHC 34 (32-34) % RDW 17.9 H (13.2-15.2) % Plt Count 412 (140-440) K/mm3 Lymph % (Auto) 18.7 (13.4-35.0) % Davis % (Auto) 7.6 H (0.0-7.3) % Eos % (Auto) 4.3 (0.0-4.3) % Baso % (Auto) 0.9 (0.0-1.8) % Lymph # 1.6 (1.2-5.4) K/mm3 Davis # 0.7 (0.0-0.8) K/mm3 Eos # 0.4 (0.0-0.4) K/mm3 Baso # 0.1 (0.0-0.1) K/mm3 Seg Neutrophils % 68.5 (40.0-70.0) % Seg Neutrophils # 6.0 (1.8-7.7) K/mm3 D-Dimer (0-234) ng/mlDDU Sodium 138 (137-145) mmol/L Potassium 3.7 (3.6-5.0) mmol/L Chloride 101.2 (98-107) mmol/L Carbon Dioxide 23 (22-30) mmol/L Anion Gap 18 mmol/L BUN 10 (9-20) mg/dL Creatinine 1.0 (0.8-1.5) mg/dL Estimated GFR > 60 ml/min BUN/Creatinine Ratio 10 % Glucose 99 (75-100) mg/dL Calcium 8.3 L (8.4-10.2) mg/dL Troponin T (0.00-0.029) ng/mL NT-Pro-B Natriuret Pep 2708 H (0-900) pg/mL 09/11/18 09/11/18 09/11/18 Range/Units 04:33 04:33 07:23 WBC (4.5-11.0) K/mm3 RBC (3.65-5.03) M/mm3 Hgb (11.8-15.2) gm/dl Hct (35.5-45.6) % MCV (84-94) fl MCH (28-32) pg MCHC (32-34) % RDW (13.2-15.2) % Plt Count (140-440) K/mm3 Lymph % (Auto) (13.4-35.0) % Davis % (Auto) (0.0-7.3) % Eos % (Auto) (0.0-4.3) % Baso % (Auto) (0.0-1.8) % Lymph # (1.2-5.4) K/mm3 Davis # (0.0-0.8) K/mm3 Eos # (0.0-0.4) K/mm3 Baso # (0.0-0.1) K/mm3 Seg Neutrophils % (40.0-70.0) % Seg Neutrophils # (1.8-7.7) K/mm3 D-Dimer 381.33 H (0-234) ng/mlDDU Sodium (137-145) mmol/L Potassium (3.6-5.0) mmol/L Chloride (98-107) mmol/L Carbon Dioxide (22-30) mmol/L Anion Gap mmol/L BUN (9-20) mg/dL Creatinine (0.8-1.5) mg/dL Estimated GFR ml/min BUN/Creatinine Ratio % Glucose (75-100) mg/dL Calcium (8.4-10.2) mg/dL Troponin T < 0.010 < 0.010 (0.00-0.029) ng/mL NT-Pro-B Natriuret Pep (0-900) pg/mL CBC 09/11/18 Range/Units 02:51 WBC 8.8 (4.5-11.0) K/mm3 RBC 3.89 (3.65-5.03) M/mm3 Hgb 9.9 L (11.8-15.2) gm/dl Hct 29.3 L (35.5-45.6) % Plt Count 412 (140-440) K/mm3 Lymph # 1.6 (1.2-5.4) K/mm3 Davis # 0.7 (0.0-0.8) K/mm3 Eos # 0.4 (0.0-0.4) K/mm3 Baso # 0.1 (0.0-0.1) K/mm3 Comprehensive Metabolic Panel 09/11/18 Range/Units 02:51 Sodium 138 (137-145) mmol/L Potassium 3.7 (3.6-5.0) mmol/L Chloride 101.2 (98-107) mmol/L Carbon Dioxide 23 (22-30) mmol/L BUN 10 (9-20) mg/dL Creatinine 1.0 (0.8-1.5) mg/dL Glucose 99 (75-100) mg/dL Calcium 8.3 L (8.4-10.2) mg/dL - EKG Interpretation EKG shows: tachycardia EKG interpretations - Telemetry EKG Rhythm: Sinus Tachycardia Assessment and Plan Shortness of breath CXR showing cardiomegaly with bilateral pulmonary infiltrates Exam is pertinent for bilateral pulmonary rales BNP is elevated VQ scan revealed intermediate probability for PE Nicotine dependence Recommendations: Obtain echocardiogram Obtain CTA chest Further work-up pending echo findings
[2018-09-11] MEDS ORDERED: LOVENOX SUB-Q SCH (22:00)
[2018-09-12] MEDS: SOLU-Medrol IV SCH ×3 (00:22→18:15)
[2018-09-12] MEDS: ROBITUSSIN PO PRN ×2 (02:57→15:49)
[2018-09-12] MEDS: PULMICORT IH SCH ×2 (09:00→20:54)
[2018-09-12] MEDS: DUONEB *Not for PRN Use IH SCH ×2 (09:00→20:54)
--- NOTE | 2018-09-12 09:07 | Progress Note ---
Assessment and Plan Shortness of breath CXR showing cardiomegaly with bilateral pulmonary infiltrates Exam is pertinent for bilateral pulmonary rales BNP is elevated VQ scan revealed intermediate probability for PE Dilated cardiomyopathy (? possible viral etiology) Severely dilated LV cavity Severe globbal hypokinesis, EF 10-15% Cannot exclude a layered apical LV thrombus Acute decompensated systolic heart failure Nicotine dependence Recommendations: Continue lovenox for possible apical LV thrombus (hold in am tomorrow) Obtain definity echo contrast tomorrow for further evaluation Schedule for coronary angiography in am Continue GDMT - BB, ACEi and aldactone (no entresto as patient is uninsured) Continue IV diuresis Subjective Date of service: 09/12/18 Principal diagnosis: CHF Interval history: Patient states that shortness of breath and edema have improved No events on tele Objective Vital Signs Temp Pulse Pulse Pulse Resp Resp BP 09/12/18 04:20 98.0 F 104 H 16 158/80 09/11/18 23:00 99.0 F 64 17 09/11/18 22:30 97 H 18 09/11/18 20:58 09/11/18 20:44 97 H 09/11/18 19:00 98.2 F 09/11/18 17:07 103 H 161/104 09/11/18 16:50 97 H 159/85 09/11/18 16:40 98 H 159/85 09/11/18 16:30 100 H 159/85 09/11/18 16:20 101 H 17 159/85 09/11/18 16:10 98 H 159/85 09/11/18 16:00 96 H 159/85 09/11/18 15:50 101 H 150/90 09/11/18 15:40 99 H 19 150/90 09/11/18 15:30 102 H 20 150/90 09/11/18 15:20 103 H 22 150/90 09/11/18 15:10 104 H 19 150/90 09/11/18 15:00 107 H 32 H 184/108 09/11/18 14:50 108 H 15 184/108 09/11/18 14:40 104 H 19 184/108 09/11/18 14:30 103 H 19 184/108 09/11/18 14:20 103 H 22 184/108 09/11/18 14:18 69 17 09/11/18 14:10 102 H 22 184/108 09/11/18 14:00 104 H 19 142/85 09/11/18 13:57 84 17 09/11/18 13:50 101 H 19 142/85 09/11/18 13:40 103 H 22 135/76 09/11/18 13:34 11 L 142/85 09/11/18 11:56 94 H 18 09/11/18 11:50 107 H 22 142/85 09/11/18 11:40 110 H 27 H 142/85 09/11/18 11:30 108 H 21 142/85 09/11/18 11:20 109 H 25 H 142/85 09/11/18 11:10 112 H 118 H 29 H 26 H 142/85 09/11/18 11:00 108 H 25 H 142/85 09/11/18 10:55 117 H 28 H 09/11/18 10:50 111 H 27 H 150/90 09/11/18 10:40 112 H 26 H 113/97 09/11/18 10:30 108 H 22 113/97 09/11/18 10:20 111 H 23 113/97 09/11/18 10:10 111 H 30 H 113/97 09/11/18 10:00 111 H 31 H 146/71 09/11/18 09:50 112 H 22 146/71 09/11/18 09:40 111 H 22 146/71 09/11/18 09:36 146/71 09/11/18 09:30 113 H 17 09/11/18 09:21 109 H 18 BP Pulse Ox 09/12/18 04:20 98 09/11/18 23:00 164/100 100 09/11/18 22:30 96 09/11/18 20:58 100 09/11/18 20:44 09/11/18 19:00 09/11/18 17:07 97 09/11/18 16:50 98 09/11/18 16:40 94 09/11/18 16:30 91 09/11/18 16:20 159/85 93 09/11/18 16:10 86 09/11/18 16:00 78 L 09/11/18 15:50 95 09/11/18 15:40 99 09/11/18 15:30 96 09/11/18 15:20 96 09/11/18 15:10 96 06/22/19 15:00 09/11/18 14:50 09/11/18 14:40 91 09/11/18 14:30 91 09/11/18 14:20 94 09/11/18 14:18 189/100 100 09/11/18 14:10 91 09/11/18 14:00 09/11/18 13:57 142/85 100 09/11/18 13:50 09/11/18 13:40 09/11/18 13:34 09/11/18 11:56 142/92 100 09/11/18 11:50 98 09/11/18 11:40 96 09/11/18 11:30 96 09/11/18 11:20 94 09/11/18 11:10 95 09/11/18 11:00 97 09/11/18 10:55 09/11/18 10:50 94 09/11/18 10:40 92 09/11/18 10:30 96 09/11/18 10:20 98 09/11/18 10:10 98 09/11/18 10:00 95 09/11/18 09:50 97 09/11/18 09:40 97 09/11/18 09:36 95 09/11/18 09:30 141/67 97 09/11/18 09:21 142/66 95 - Physical Examination HEENT: Positive: PERRL Neck: Positive: neck supple Cardiac: Positive: Reg Rate and Rhythm Lungs: Positive: Normal Exam Abdomen: Positive: Soft Extremities: Absent: edema - Imaging and Cardiology EKG: image reviewed (sinus tachycardia 108 bpm)
--- NOTE | 2018-09-12 09:35 | Progress Note ---
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 He was admitted for CHF * CXR 2view Impression: Mild bilateral scattered infiltrates in both lungs. Mild bilateral effusions. * Initial labs: D-Dimer 381.33, proBNP 2708, hgb 9.9 with MCV 75 normal plt, wbc * v/q scan intermediate for PE (in the setting of abnormal cxr, not really sure; therefore, treat for PE until CTA chest is available) * 2D ECHO conclusions: The left ventricular chamber size is severely dilated, global LVSF is severely decreased, estimated EF is 10-15%, left ventricular diastolic filling pattern is restrictive, cannot exclude a layered apical thrombus, left atrium is mild to moderately dilated, right ventricle is mo derately dilated, severe MR, repeat limited echo with IV contrast is warranted. 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 Tobacco abuse, Counseled for smoking cessation, refuses nicotine patch DVT PPX on Lovenox History Interval history: Patient was seen and examined. Follow-up on current diagnosis of CHF. No overnight events reported to me. Patient denies any chest pain, shortness breath, nausea/vomiting or severe headaches. Imaging, nursing note, chart, labs and old chart reviewed. Discussed with patient. Hospitalist Physical - Physical exam Narrative exam: Gen: WDWN, NAD, Awake, Alert, Orientated HEENT: NCAT, EOMI, PERRL, OP Clear Neck: supple, no adenopathy, no thyromegaly, JVD CVS/Heart: Regular tachycardia, normal S1S2, pulses present bilaterally Chest/Lungs: bibasilar crackles, diminished bs Symmetrical chest expansion, good air entry bilaterally GI/Abdomen: soft, NTND, good bowel sounds, no guarding or rebound /Bladder: no suprapubic tenderness, no CVA or paraspinal tenderness Extermity/Skin: +pitting BLE edema, no obvious rash MSK: FROM x 4 Neuro: CN 2-12 grossly intact, no new focal deficits Psych: calm - Constitutional Vitals: Temp Pulse Resp BP Pulse Ox 98.0 F 118 H 20 158/80 100 09/12/18 04:20 09/12/18 09:06 09/12/18 09:06 09/12/18 04:20 09/12/18 09:06 General appearance: Present: no acute distress Results - Labs CBC & Chem 7: 09/11/18 02:51 09/11/18 02:51 Labs: Laboratory Last Values WBC 8.8 K/mm3 (4.5-11.0) 09/11/18 02:51 RBC 3.89 M/mm3 (3.65-5.03) 09/11/18 02:51 Hgb 9.9 gm/dl (11.8-15.2) L 09/11/18 02:51 Hct 29.3 % (35.5-45.6) L 09/11/18 02:51 MCV 75 fl (84-94) L 09/11/18 02:51 MCH 25 pg (28-32) L 09/11/18 02:51 MCHC 34 % (32-34) 09/11/18 02:51 RDW 17.9 % (13.2-15.2) H 09/11/18 02:51 Plt Count 412 K/mm3 (140-440) 09/11/18 02:51 Lymph % (Auto) 18.7 % (13.4-35.0) 09/11/18 02:51 [place] % (Auto) 7.6 % (0.0-7.3) H 09/11/18 02:51 Eos % (Auto) 4.3 % (0.0-4.3) 09/11/18 02:51 Baso % (Auto) 0.9 % (0.0-1.8) 09/11/18 02:51 Lymph # 1.6 K/mm3 (1.2-5.4) 09/11/18 02:51 [place]yer # 0.7 K/mm3 (0.0-0.8) 09/11/18 02:51 Eos # 0.4 K/mm3 (0.0-0.4) 09/11/18 02:51 Baso # 0.1 K/mm3 (0.0-0.1) 09/11/18 02:51 Seg Neutrophils % 68.5 % (40.0-70.0) 09/11/18 02:51 Seg Neutrophils # 6.0 K/mm3 (1.8-7.7) 09/11/18 02:51 381.33 ng/mlDDU (0-234) H 09/11/18 04:33 Sodium 138 mmol/L (137-145) 09/11/18 02:51 Potassium 3.7 mmol/L (3.6-5.0) 09/11/18 02:51 Chloride 101.2 mmol/L (98-107) 09/11/18 02:51 Carbon Dioxide 23 mmol/L (22-30) 09/11/18 02:51 18 mmol/L 09/11/18 02:51 BUN 10 mg/dL (9-20) 09/11/18 02:51 1.0 mg/dL (0.8-1.5) 09/11/18 02:51 Estimated GFR > 60 ml/min 09/11/18 02:51 10 % 09/11/18 02:51 Glucose 99 mg/dL (75-100) 09/11/18 02:51 Calcium 8.3 mg/dL (8.4-10.2) L 09/11/18 02:51 < 0.010 ng/mL (0.00-0.029) 09/11/18 07:23 NT-Pro-B Natriuret Pep 2708 pg/mL (0-900) H 09/11/18 02:51 Active Medications - Current Medications Current Medications: Generic Name Dose Route Start Last Admin Trade Name Freq PRN Reason Stop Dose Admin Acetaminophen 650 mg 09/11/18 05:44 Tylenol PO Q4H PRN Pain MILD(1-3)/Fever >100.5/[place] Albuterol 2.5 mg 09/11/18 06:08 09/11/18 16:25 Proventil IH 2.5 mg Q4HRT PRN Administration Shortness Of Breath Albuterol/Ipratropium 1 ampul 09/11/18 09:00 09/12/18 09:00 Duoneb *Not For Prn Use* IH 1 ampul Q12HRT MARLEN Administration Aspirin 81 mg 09/11/18 10:00 09/11/18 10:38 Baby Aspirin PO 81 mg QDAY [facility] Administration Budesonide 0.5 mg 09/11/18 08:00 09/12/18 09:00 Pulmicort IH 0.5 mg Q12HRT MARLEN Administration Docusate Sodium 100 mg 09/11/18 10:00 09/11/18 22:33 Colace PO 100 mg BID [facility]LEN Administration Enoxaparin Sodium 100 mg 09/11/18 14:00 09/11/18 22:34 Lovenox SUB-Q 100 mg Q12HR [facility]LEN Administration Furosemide 40 mg 09/11/18 10:00 09/11/18 10:38 Lasix IV 40 mg DAILY [facility] Administration Guaifenesin 600 mg 09/11/18 10:00 09/11/18 22:33 Mucinex Er PO 600 mg BID [facility]LEN Administration Guaifenesin 200 mg 09/12/18 02:48 09/12/18 02:57 Robitussin PO 200 mg Q4H PRN Administration Cough Levofloxacin/Dextrose 500 mg in 100 mls @ 100 mls/hr 09/11/18 10:00 09/11/18 10:38 Levaquin 500mg/100ml IV 100 mls/hr Q24HR MARLEN Administration Protocol Lisinopril 5 mg 09/12/18 10:00 Zestril PO QDAY [facility] Methylprednisolone Sodium Succinate 20 mg 09/11/18 09:00 09/12/18 00:22 Solu-Medrol IV 20 mg Q8H MARLEN Administration Metoprolol Succinate 25 mg 09/11/18 10:00 09/11/18 14:30 Toprol Xl PO 25 mg QDAY [facility] Administration Ondansetron HCl 4 mg 09/11/18 05:44 Zofran IV Q8H PRN Nausea And Vomiting Sodium Chloride 10 ml 09/11/18 10:00 09/11/18 22:34 Sodium Chloride Flush Syringe 10 Ml IV 10 ml BID MARLEN Administration Sodium Chloride 10 ml 09/11/18 05:44 Sodium Chloride Flush Syringe 10 Ml IV PRN PRN LINE FLUSH Spironolactone 25 mg 09/12/18 10:00 Aldactone PO QDAY MARLEN
[2018-09-12] MEDS: LOVENOX SUB-Q SCH ×2 (11:01→23:23)
[2018-09-12] MEDS: LEVAQUIN 500MG/100ML 500 MG/100 ML BAG IV SCH (11:01)
[2018-09-12] MEDS: ALDACTONE PO SCH (11:01)
[2018-09-12] MEDS: TOPROL XL PO SCH (11:02)
[2018-09-12] MEDS: ZESTRIL PO SCH (11:02)
[2018-09-12] MEDS: LASIX IV SCH (11:02)
[2018-09-12] MEDS: COLACE PO SCH ×2 (11:02→23:27)
[2018-09-12] MEDS: MUCINEX ER PO SCH ×2 (11:02→23:23)
[2018-09-12] MEDS: BABY ASPIRIN PO SCH (11:02)
[2018-09-12] MEDS: SODIUM CHLORIDE FLUSH SYRINGE 10 ML IV SCH ×2 (11:03→23:24)
[2018-09-12] MEDS ORDERED: RESTORIL PO PRN (22:10)
[2018-09-13 01:03] LABS: Basophils % (Auto) 0.4 % (0.0-1.8); Hematocrit 28.7 % (35.5-45.6); Hemoglobin 9.8 gm/dl (11.8-15.2); Lymphocytes # (Auto) 0.7 K/mm3 (1.2-5.4); Lymphocytes % (Auto) 7.4 % (13.4-35.0); Mean Corpuscular HGB Conc 34 % (32-34); Mean Corpuscular Volume 75 fl (84-94); Monocytes # (Auto) 0.2 K/mm3 (0.0-0.8); Monocytes % (Auto) 2.6 % (0.0-7.3); Platelet Count 411 K/mm3 (140-440); Red Blood Count 3.81 M/mm3 (3.65-5.03); Red Cell Distribution Width 17.6 % (13.2-15.2)
[2018-09-13 01:13] LABS: INR 1.13 (0.87-1.13)
[2018-09-13 01:25] LABS: BUN/Creatinine Ratio 17; Blood Urea Nitrogen 15 mg/dL (9-20); Calcium 8.8 mg/dL (8.4-10.2); Hemolysis Index 0
[2018-09-13] MEDS: ROBITUSSIN PO PRN (03:03)
[2018-09-13] MEDS: SOLU-Medrol IV SCH ×3 (03:06→18:48)
[2018-09-13] MEDS: PULMICORT IH SCH ×2 (08:08→20:09)
[2018-09-13] MEDS: DUONEB *Not for PRN Use IH SCH ×2 (08:08→20:09)
[2018-09-13] MEDS ORDERED: NACL 0.9% 500 ML 500 ML ONE (09:26)
[2018-09-13] MEDS ORDERED: NITRO DUR TD NR (10:04)
--- NOTE | 2018-09-13 10:11 | Progress Note ---
Assessment and Plan - Patient Problems (1) New onset of congestive heart failure Current Visit: Yes Status: Acute Plan to address problem: Patient presents with new diagnosis of dilated cardiomyopathy and systolic heart failure. The patient remains markedly short of breath, unable to lay supine, not a candidate at this time for invasive cardiac evaluation. He presents with a new diagnosis of a dilated cardiomyopathy, ejection fraction less than 20%, chest x- ray shows bilateral fluffy infiltrates, pulmonary edema versus atypical pneumonia. It will be noted that he was hospitalized with similar symptoms 2 weeks ago, at that time treated with a diagnosis of pneumonia. A comparative review of his chest x-ray from September 04 shows that the bilateral infiltrates on that time have gotten much worse on the current x-ray. Despite the severity of his cardiomyopathy, and his pulmonary edema, EKG appears largely benign, showing a sinus rhythm with nonspecific ST and T-wave changes. No acute ischemia or infarction, no significant bundle branch abnormality. In addition the chest CT scan reports and intermediate probability for pulmonary embolism. Recommendations: 1. We will cancel cardiac catheterization, patient is unable to lay supine, has decompensated heart failure, and has a diagnosis of possible intercurrent pulmonary embolism. Once his heart failure is optimized, ischemic workup with noninvasive or invasive evaluation as indicated. 2. We will aggressively treat heart failure with intravenous diuretics, and intravenous inotropic therapy with milrinone. A repeat of the echocardiogram shows no significant evidence of left ventricular thrombus or cardiac thromboembolism. 3. Recommend pulmonary consultation for a review of the abnormal findings on pulmonary CTA. Subjective Date of service: 09/13/18 Principal diagnosis: CHF Interval history: The patient remains markedly short of breath, unable to lay supine, not a candidate at this time for invasive cardiac evaluation. He presents with a new diagnosis of a dilated cardiomyopathy, ejection fraction less than 20%, chest x- ray shows bilateral fluffy infiltrates, pulmonary edema versus atypical pneumonia. It will be noted that he was hospitalized with similar symptoms 2 weeks ago, at that time treated with a diagnosis of pneumonia. A comparative re view of his chest x-ray from September 04 shows that the bilateral infiltrates on that time have gotten much worse on the current x-ray. Despite the severity of his cardiomyopathy, and his pulmonary edema, EKG appears largely benign, showing a sinus rhythm with nonspecific ST and T-wave changes. No acute ischemia or infarction, no significant bundle branch abnormality. Objective Vital Signs Temp Pulse Pulse Resp Resp BP BP 06/24/19 08:10 09/13/18 08:09 96 H 18 09/13/18 08:00 97 H 17 09/13/18 07:53 98.1 F 96 H 18 130/87 09/13/18 04:40 98.4 F 97 H 20 133/85 09/12/18 23:40 98.3 F 110 H 22 154/91 09/12/18 22:00 105 H 09/12/18 20:54 104 H 20 09/12/18 19:51 97.9 F 102 H 20 128/73 09/12/18 18:46 98.3 F 106 H 18 149/77 Pulse Ox 09/13/18 08:10 98 09/13/18 08:09 09/13/18 08:00 09/13/18 07:53 96 09/13/18 04:40 96 09/12/18 23:40 92 09/12/18 22:00 09/12/18 20:54 97 09/12/18 19:51 91 09/12/18 18:46 93 - Physical Examination General: Other (moderately short of breath) HEENT: Positive: PERRL Neck: Positive: neck supple Cardiac: Positive: Reg Rate and Rhythm Lungs: Positive: Decreased Breath Sounds, Rhonchi Neuro: Positive: Grossly Intact Abdomen: Positive: Soft Skin: Positive: Clear Extremities: Absent: edema - Labs and Meds Coagulation 09/13/18 Range/Units 00:17 PT 14.2 (12.2-14.9) Sec. INR 1.13 (0.87-1.13) CBC 09/13/18 Range/Units 00:17 WBC 9.4 (4.5-11.0) K/mm3 RBC 3.81 (3.65-5.03) M/mm3 Hgb 9.8 L (11.8-15.2) gm/dl Hct 28.7 L (35.5-45.6) % Plt Count 411 (140-440) K/mm3 Lymph # 0.7 L (1.2-5.4) K/mm3 [place] # 0.2 (0.0-0.8) K/mm3 Eos # 0.0 (0.0-0.4) K/mm3 Baso # 0.0 (0.0-0.1) K/mm3 Comprehensive Metabolic Panel 09/13/18 Range/Units 00:17 Sodium 139 (137-145) mmol/L Potassium 4.0 (3.6-5.0) mmol/L Chloride 100.5 (98-107) mmol/L Carbon Dioxide 26 (22-30) mmol/L BUN 15 (9-20) mg/dL Creatinine 0.9 (0.8-1.5) mg/dL Glucose 141 H (75-100) mg/dL Calcium 8.8 (8.4-10.2) mg/dL - Imaging and Cardiology EKG: image reviewed (sinus tachycardia 108 bpm)
--- NOTE | 2018-09-13 10:39 | Progress Note ---
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 He was admitted for CHF * CXR 2view Impression: Mild bilateral scattered infiltrates in both lungs. Mild bilateral effusions. * Initial labs: D-Dimer 381.33, proBNP 2708, hgb 9.9 with MCV 75 normal plt, wbc * v/q scan intermediate for PE (in the setting of abnormal cxr, not really sure; therefore, treat for PE until CTA chest is available) * 2D ECHO conclusions: The left ventricular chamber size is severely dilated, global LVSF is severely decreased, estimated EF is 10-15%, left ventricular diastolic filling pattern is restrictive, cannot exclude a layered apical thrombus, left atrium is mild to moderately dilated, right ventricle is mo derately dilated, severe MR, repeat limited echo with IV contrast is warranted. New onset of Acute decompensated systolic heart failure: treat with iv lasix, ECHO reviewed, Cardiology consulted, input noted Suspected Apical Thrombus: on therapeutic Lovenox, ECHO with iv contrast pending per Dr. 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 Tobacco abuse, Counseled for smoking cessation, refuses nicotine patch DVT PPX on Lovenox I ordered stat CTA chest to rule out PE. Cardiac cath cancelled for today by Dr. Castellanos due to the patient's inability to lay flat. He is starting IV Milrinone drip History Interval history: Patient was seen and examined. Follow-up on current diagnosis of CHF. No overnight events reported to me. Patient denies any chest pain, shortness breath, nausea/vomiting or severe headaches. Imaging, nursing note, chart, labs and old chart reviewed. Discussed with patient. at bedside Hospitalist Physical - Physical exam Narrative exam: Gen: WDWN, NAD, Awake, Alert, Orientated HEENT: NCAT, EOMI, PERRL, OP Clear Neck: supple, no adenopathy, no thyromegaly, JVD CVS/Heart: Regular tachycardia, normal S1S2, pulses present bilaterally Chest/Lungs: bibasilar crackles, diminished bs Symmetrical chest expansion, good air entry bilaterally GI/Abdomen: soft, NTND, good bowel sounds, no guarding or rebound /Bladder: no suprapubic tenderness, no CVA or paraspinal tenderness Extermity/Skin: +pitting BLE edema, no obvious rash MSK: FROM x 4 Neuro: CN 2-12 grossly intact, no new focal deficits Psych: calm - Constitutional Vitals: Temp Pulse Resp BP Pulse Ox 98.1 F 96 H 18 130/87 98 09/13/18 07:53 09/13/18 08:09 09/13/18 08:09 09/13/18 07:53 09/13/18 08:10 General appearance: Present: no acute distress Results - Labs CBC & Chem 7: 09/13/18 00:17 09/13/18 00:17 Labs: Laboratory Last Values WBC 9.4 K/mm3 (4.5-11.0) 09/13/18 00:17 RBC 3.81 M/mm3 (3.65-5.03) 09/13/18 00:17 Hgb 9.8 gm/dl (11.8-15.2) L 09/13/18 00:17 Hct 28.7 % (35.5-45.6) L 09/13/18 00:17 MCV 75 fl (84-94) L 09/13/18 00:17 MCH 26 pg (28-32) L 09/13/18 00:17 MCHC 34 % (32-34) 09/13/18 00:17 RDW 17.6 % (13.2-15.2) H 09/13/18 00:17 Plt Count 411 K/mm3 (140-440) 09/13/18 00:17 Lymph % (Auto) 7.4 % (13.4-35.0) L 09/13/18 00:17 Burnett % (Auto) 2.6 % (0.0-7.3) 09/13/18 00:17 Eos % (Auto) 0.0 % (0.0-4.3) 09/13/18 00:17 Baso % (Auto) 0.4 % (0.0-1.8) 09/13/18 00:17 Lymph # 0.7 K/mm3 (1.2-5.4) L 09/13/18 00:17 Burnett # 0.2 K/mm3 (0.0-0.8) 09/13/18 00:17 Eos # 0.0 K/mm3 (0.0-0.4) 09/13/18 00:17 Baso # 0.0 K/mm3 (0.0-0.1) 09/13/18 00:17 Seg Neutrophils % 89.6 % (40.0-70.0) H 09/13/18 00:17 Seg Neutrophils # 8.4 K/mm3 (1.8-7.7) H 09/13/18 00:17 PT 14.2 Sec. (12.2-14.9) 09/13/18 00:17 INR 1.13 (0.87-1.13) 09/13/18 00:17 381.33 ng/mlDDU (0-234) H 09/11/18 04:33 Sodium 139 mmol/L (137-145) 09/13/18 00:17 Potassium 4.0 mmol/L (3.6-5.0) 09/13/18 00:17 Chloride 100.5 mmol/L (98-107) 09/13/18 00:17 Carbon Dioxide 26 mmol/L (22-30) 09/13/18 00:17 17 mmol/L 09/13/18 00:17 BUN 15 mg/dL (9-20) 09/13/18 00:17 0.9 mg/dL (0.8-1.5) 09/13/18 00:17 Estimated GFR > 60 ml/min 09/13/18 00:17 17 % 09/13/18 00:17 Glucose 141 mg/dL (75-100) H 09/13/18 00:17 POC Glucose 126 (70-105) H 09/13/18 06:52 Calcium 8.8 mg/dL (8.4-10.2) 09/13/18 00:17 < 0.010 ng/mL (0.00-0.029) 09/11/18 07:23 NT-Pro-B Natriuret Pep 2708 pg/mL (0-900) H 09/11/18 02:51 Active Medications - Current Medications Current Medications: Generic Name Dose Route Start Last Admin Trade Name Freq PRN Reason Stop Dose Admin Acetaminophen 650 mg 09/11/18 05:44 Tylenol PO Q4H PRN Pain MILD(1-3)/Fever >100.5/[place] Albuterol 2.5 mg 09/11/18 06:08 09/11/18 16:25 Proventil IH 2.5 mg Q4HRT PRN Administration Shortness Of Breath Albuterol/Ipratropium 1 ampul 09/11/18 09:00 09/13/18 08:08 Duoneb *Not For Prn Use* IH 1 ampul Q12HRT [facility] Administration Aspirin 81 mg 09/11/18 10:00 09/12/18 11:02 Baby Aspirin PO 81 mg QDAY [facility] Administration Budesonide 0.5 mg 09/11/18 08:00 09/13/18 08:08 Pulmicort IH 0.5 mg Q12HRT [facility] Administration Carvedilol 6.25 mg 09/13/18 11:00 Coreg PO BID [facility] Docusate Sodium 100 mg 09/11/18 10:00 09/12/18 23:27 Colace PO 100 mg BID [facility] Administration Enoxaparin Sodium 100 mg 09/11/18 14:00 09/12/18 23:23 Lovenox SUB-Q 100 mg Q12HR [facility] Administration Furosemide 60 mg 09/13/18 18:00 Lasix IV 0600,1800 [facility] Guaifenesin 600 mg 09/11/18 10:00 09/12/18 23:23 Mucinex Er PO 600 mg BID [facility] Administration Guaifenesin 200 mg 09/12/18 02:48 09/13/18 03:03 Robitussin PO 200 mg Q4H PRN Administration Cough Levofloxacin/Dextrose 500 mg in 100 mls @ 100 mls/hr 09/11/18 10:00 09/12/18 11:01 Levaquin 500mg/100ml IV 100 mls/hr Q24HR [facility] Administration Protocol Milrinone Lactate/Dextrose 20 mg in 100 mls @ 12.825 mls/hr 09/13/18 11:00 Milrinone-D5w 20 Mg/100 Ml IV 09/16/18 10:59 TITR [facility] 0.375 MCG/KG/MIN Lisinopril 5 mg 09/12/18 10:00 09/12/18 11:02 Zestril PO 5 mg QDAY [facility] Administration Methylprednisolone Sodium Succinate 20 mg 09/11/18 09:00 09/13/18 03:06 Solu-Medrol IV 20 mg Q8H [facility] Administration Nitroglycerin 0.4 mg 09/13/18 10:04 Nitro Dur TD 09/13/18 16:00 ONCE NR Ondansetron HCl 4 mg 09/11/18 05:44 Zofran IV Q8H PRN Nausea And Vomiting Sodium Chloride 10 ml 09/11/18 10:00 09/12/18 23:24 Sodium Chloride Flush Syringe 10 Ml IV 10 ml BID [facility] Administration Sodium Chloride 10 ml 09/11/18 05:44 Sodium Chloride Flush Syringe 10 Ml IV PRN PRN LINE FLUSH Spironolactone 25 mg 09/12/18 10:00 09/12/18 11:01 Aldactone PO 25 mg QDAY [facility] Administration Temazepam 15 mg 09/12/18 22:10 09/12/18 23:23 Restoril PO 15 mg QHS PRN Administration Sleep
[2018-09-13] MEDS: MUCINEX ER PO SCH ×2 (11:29→22:53)
[2018-09-13] MEDS: ZESTRIL PO SCH (11:29)
[2018-09-13] MEDS: COLACE PO SCH ×2 (11:30→22:55)
[2018-09-13] MEDS: ALDACTONE PO SCH (11:30)
[2018-09-13] MEDS: BABY ASPIRIN PO SCH (11:30)
[2018-09-13] MEDS: MILRINONE-D5W 20 MG/100 ML 20 MG/100 ML BAG IV SCH ×2 (11:31→19:36)
[2018-09-13] MEDS: COREG PO SCH ×2 (11:31→22:53)
[2018-09-13] MEDS: SODIUM CHLORIDE FLUSH SYRINGE 10 ML IV SCH ×2 (11:31→22:55)
[2018-09-13] MEDS: LOVENOX SUB-Q SCH ×2 (11:31→23:03)
[2018-09-13] MEDS: LEVAQUIN 500MG/100ML 500 MG/100 ML BAG IV SCH (11:31)
[2018-09-13] MEDS: TOPROL XL PO SCH (11:35)
[2018-09-13] MEDS: LASIX IV SCH ×2 (11:35→18:46)
--- NOTE | 2018-09-13 18:02 | Cat Scan Report ---
PROCEDURE: CT ANGIO CHEST TECHNIQUE: Computerized tomographic angiography of the chest was performed after the IV injection of iodinated nonionic contrast including image processing. The image data was postprocessed using 2-di mensional multiplanar reformatted (MPR) and 3-dimensional (MIP and/or volume rendered) techniques. Au tomated exposure control, adjustment of mA and/or kV according to patient size, or iterative reconstr uction dose optimization techniques were utilized. CT DOSE LENGTH PRODUCT: 836.2 mGycm HISTORY: sob, PE suspected COMPARISONS: None . FINDINGS: Heart and pericardium: Prominent heart size. No pericardial effusion or thickening. Thoracic aorta: Normal. Pulmonary vasculature: No pulmonary arterial filling defects are seen to suggest presence of pulmonar y emboli. Lymph nodes: No enlarged thoracic lymph nodes. Lungs: Bilateral upper lobe airspace infiltrates. Smaller airspace infiltrates are seen in the bilat eral lower lobes. Bibasilar airspace consolidation/atelectasis. Pleural space: Bilateral moderate to large pleural effusions. Musculoskeletal structures: Degenerative disc changes of the thoracolumbar spine. Upper abdominal structures: No significant abnormality. IMPRESSION: No evidence of pulmonary emboli. Bilateral pulmonary infiltrates may be related to pneumonia. Bilateral pleural effusions are present . This document is electronically signed by Steffi Levy MD., September 13 2018 06:00:39 PM ET
[2018-09-13] MEDS ORDERED: LEVAQUIN PO ONE (22:30)
[2018-09-14] MEDS: SOLU-Medrol IV SCH ×3 (01:22→17:55)
[2018-09-14] MEDS ORDERED: AMBIEN PO ONE (01:53)
[2018-09-14] MEDS: MILRINONE-D5W 20 MG/100 ML 20 MG/100 ML BAG IV SCH ×3 (06:13→19:32)
[2018-09-14] MEDS: LASIX IV SCH ×2 (06:14→17:55)
[2018-09-14] MEDS: DUONEB *Not for PRN Use IH SCH ×2 (08:19→21:02)
[2018-09-14] MEDS: PULMICORT IH SCH ×2 (08:19→21:02)
[2018-09-14] MEDS: BABY ASPIRIN PO SCH (09:38)
[2018-09-14] MEDS: ALDACTONE PO SCH (09:38)
[2018-09-14] MEDS: ZESTRIL PO SCH (09:39)
[2018-09-14] MEDS: COLACE PO SCH ×2 (09:39→22:02)
[2018-09-14] MEDS: COREG PO SCH ×2 (09:39→22:02)
[2018-09-14] MEDS: LEVAQUIN PO SCH (09:39)
[2018-09-14] MEDS: MUCINEX ER PO SCH ×2 (09:39→22:02)
[2018-09-14] MEDS: SODIUM CHLORIDE FLUSH SYRINGE 10 ML IV SCH ×2 (09:39→22:03)
--- NOTE | 2018-09-14 11:13 | Progress Note ---
Assessment and Plan Shortness of breath CXR showing cardiomegaly with bilateral pulmonary infiltrates VQ scan revealed intermediate probability for PE A CTA reports no evidence of PE Acute decompensated systolic heart failure Dilated cardiomyopathy, uncertain duration Severely dilated LV cavity, EF 10-15% A repeat of the echocardiogram shows no significant evidence of left ventricular thrombus or cardiac thromboembolism. Nicotine dependence Recommendations Pulmonary consultation for a review of the abnormal findings on pulmonary CTA. Continue aggressive heart failure management with intravenous diuretics and intravenous inotropic therapy with milrinone. Once his heart failure is optimized, ischemic workup with noninvasive versus invasive evaluation as indicated. Subjective Date of service: 09/14/18 Principal diagnosis: CHF Objective Vital Signs Temp Pulse Pulse Pulse Pulse Resp Resp 09/14/18 09:39 09/14/18 09:38 09/14/18 08:19 91 H 20 09/14/18 08:18 09/14/18 04:47 98.5 F 95 H 20 09/14/18 00:08 98.5 F 99 H 20 09/13/18 22:53 106 H 09/13/18 22:00 99 H 98 H 98 H 20 09/13/18 20:13 09/13/18 20:12 102 H 20 09/13/18 20:05 97.4 F L 98 H 22 09/13/18 16:54 98.7 F 96 H 18 09/13/18 14:49 09/13/18 14:47 97.5 F L 18 09/13/18 11:31 96 H 09/13/18 11:30 96 H 09/13/18 11:29 96 H BP Pulse Ox 09/14/18 09:39 124/64 09/14/18 09:38 124/64 09/14/18 08:19 09/14/18 08:18 97 09/14/18 04:47 139/80 92 09/14/18 00:08 127/64 93 09/13/18 22:53 126/64 09/13/18 22:00 96 09/13/18 20:13 96 09/13/18 20:12 09/13/18 20:05 126/64 95 09/13/18 16:54 130/85 99 09/13/18 14:49 121/63 09/13/18 14:47 09/13/18 11:31 130/87 09/13/18 11:30 130/87 09/13/18 11:29 130/87 - Physical Examination General: Other (moderately short of breath) HEENT: Positive: PERRL Neck: Positive: neck supple Neuro: Positive: Grossly Intact Abdomen: Positive: Soft Skin: Positive: Clear Extremities: Absent: edema - Imaging and Cardiology EKG: image reviewed (sinus tachycardia 108 bpm)
--- NOTE | 2018-09-14 13:50 | Consultation ---
History of Present Illness Consult date: 09/14/18 Reason for consult: dyspnea, COPD, pneumonia History of present illness: PULMONARY AND CRITICAL CARE CONSULTATION DR. MACKENZIE THANK YOU FOR ASKING US TO PARTICIPATE IN THE CARE OF THIS PATIENT. 57-year-old -[place] male who is an ongoing smoker with history of COPD presents to [facility] ED with complaints of bilateral lower extremity edema and shortness of breath with activity. Patient states that for the past 3 days he has been experiencing worsening bilateral lower extremity edema and shortness of breath with exertion. Patient states that he is unable to take out the garbage without becoming short of breath. He denies any previous cardiac history or workup. 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 Patient also complains of wheezing and cough with yellow sputum production. Of note patient was seen in ED on 09/04 treated for pneumonia. Patient is on Levaquin. Patient afebrile and has no leukocytosis Patient has history of smoking 3/4 th Pack a day for 30 years. Patient recently also smoking E cigaretts. Patient has no known allergies. Patient and has four children. Chest xray reported b mild bilateral scattered infiltrates Small bilateral effusions. Angio CT of chest reported No PE. Reported bilateral infiltrates and bilateral pleural effusions. Past History Past Medical History: COPD Past Surgical History: No surgical history Social history: , lives with family, smoking (current everyday smoker) Family history: no significant family history Medications and Allergies Allergies Allergy/AdvReac Type Severity Reaction Status Date / Time No Known Allergies Allergy Unverified 09/04/18 20:01 Home Medications Medication Instructions Recorded Confirmed Last Taken Type ALBUTEROL Inhaler (OR & NICU) 2 puff IH QID PRN #25 inh 09/04/18 09/11/18 Unknown Rx [ProAir HFA Inhaler] ALBUTEROL NEB's [Proventil 0.083% 2.5 mg IH Q4H PRN #1 vial 09/04/18 09/11/18 Unknown Rx NEBS] Benzonatate [Tessalon Perles] 100 mg PO Q8HR PRN #30 capsule 09/04/18 09/11/18 Unknown Rx Ibuprofen [Motrin 800 MG tab] 800 mg PO Q8HR PRN #30 tablet 09/04/18 09/11/18 Unknown Rx Nebulizer Accessories [Aeroneb Go] 1 each PRN PRN #1 each 09/04/18 09/11/18 Unknown Rx Nebulizer Accessories [Sootheneb 1 each PRN PRN #1 each 09/04/18 09/11/18 Unknown Rx [id number] Adult Mask] Active Meds: Active Medications Acetaminophen (Tylenol) 650 mg PO Q4H PRN PRN Reason: Pain MILD(1-3)/Fever >100.5/[place] Albuterol (Proventil) 2.5 mg IH Q4HRT PRN PRN Reason: Shortness Of Breath Last Admin: 09/11/18 16:25 Dose: 2.5 mg Documented by: Albuterol/Ipratropium (Duoneb *Not For Prn Use*) 1 ampul IH Q12HRT [facility] Last Admin: 09/14/18 08:19 Dose: 1 ampul Documented by: Aspirin (Baby Aspirin) 81 mg PO QDAY [facility] Last Admin: 09/14/18 09:38 Dose: 81 mg Documented by: Budesonide (Pulmicort) 0.5 mg IH Q12HRT [facility] Last Admin: 09/14/18 08:19 Dose: 0.5 mg Documented by: Carvedilol (Coreg) 6.25 mg PO BID [facility] Last Admin: 09/14/18 09:39 Dose: 6.25 mg Documented by: Docusate Sodium (Colace) 100 mg PO BID [facility] Last Admin: 09/14/18 09:39 Dose: 100 mg Documented by: Enoxaparin Sodium (Lovenox) 40 mg SUB-Q QDAY@2200 [facility] Furosemide (Lasix) 60 mg IV 0600,1800 [facility] Last Admin: 09/14/18 06:14 Dose: 60 mg Documented by: Guaifenesin (Mucinex Er) 600 mg PO BID [facility] Last Admin: 09/14/18 09:39 Dose: 600 mg Documented by: Guaifenesin (Robitussin) 200 mg PO Q4H PRN PRN Reason: Cough Last Admin: 09/13/18 03:03 Dose: 200 mg Documented by: Milrinone Lactate/Dextrose (Milrinone-D5w 20 Mg/100 Ml) 20 mg in 100 mls @ 12.825 mls/hr IV TITR [facility] Stop: 09/16/18 10:59 Last Admin: 09/14/18 13:34 Dose: 0.375 mcg/kg/min, 12.825 mls/hr Documented by: Levofloxacin (Levaquin) 750 mg PO Q24HR [facility] Last Admin: 09/14/18 09:39 Dose: 750 mg Documented by: Lisinopril (Zestril) 5 mg PO QDAY [facility] Last Admin: 09/14/18 09:39 Dose: 5 mg Documented by: Methylprednisolone Sodium Succinate (Solu-Medrol) 20 mg IV Q8H [facility] Last Admin: 09/14/18 09:40 Dose: 20 mg Documented by: Ondansetron HCl (Zofran) 4 mg IV Q8H PRN PRN Reason: Nausea And Vomiting Sodium Chloride (Sodium Chloride Flush Syringe 10 Ml) 10 ml IV BID [facility] Last Admin: 09/14/18 09:39 Dose: 10 ml Documented by: Sodium Chloride (Sodium Chloride Flush Syringe 10 Ml) 10 ml IV PRN PRN PRN Reason: LINE FLUSH Spironolactone (Aldactone) 25 mg PO QDAY [facility] Last Admin: 09/14/18 09:38 Dose: 25 mg Documented by: Temazepam (Restoril) 15 mg PO QHS PRN PRN Reason: Sleep Last Admin: 09/12/18 23:23 Dose: 15 mg Documented by: Review of Systems All systems: negative Physical Examination Vital signs: Vital Signs Temp Pulse Resp BP Pulse Ox 98.6 F 113 H 26 H 163/89 97 09/11/18 02:37 09/11/18 02:37 09/11/18 02:37 09/11/18 02:37 09/11/18 02:37 Results - Laboratory Findings CBC and BMP: 09/13/18 00:17 09/13/18 00:17 PT/INR, D-dimer PT 14.2 Sec. (12.2-14.9) 09/13/18 00:17 INR 1.13 (0.87-1.13) 09/13/18 00:17 381.33 ng/mlDDU (0-234) H 09/11/18 04:33 Abnormal lab findings: Abnormal Labs 09/11/18 09/11/18 09/11/18 02:51 02:51 02:51 Hgb 9.9 L Hct 29.3 L MCV 75 L MCH 25 L RDW 17.9 H Lymph % (Auto) Wirt % (Auto) 7.6 H Lymph # Seg Neutrophils % Seg Neutrophils # D-Dimer Glucose POC Glucose Calcium 8.3 L NT-Pro-B Natriuret Pep 2708 H 09/11/18 09/13/18 09/13/18 04:33 00:17 00:17 Hgb 9.8 L Hct 28.7 L MCV 75 L MCH 26 L RDW 17.6 H Lymph % (Auto) 7.4 L Wirt % (Auto) Lymph # 0.7 L Seg Neutrophils % 89.6 H Seg Neutrophils # 8.4 H D-Dimer 381.33 H Glucose 141 H POC Glucose Calcium NT-Pro-B Natriuret Pep 09/13/18 09/13/18 06:52 22:21 Hgb Hct MCV MCH RDW Lymph % (Auto) Wirt % (Auto) Lymph # Seg Neutrophils % Seg Neutrophils # D-Dimer Glucose POC Glucose 126 H 143 H Calcium NT-Pro-B Natriuret Pep - Diagnostic Findings Chest x-ray: report reviewed (Scattered bilateral pulmonary infiltrates.), image reviewed CT scan - chest: report reviewed, image reviewed Additional studies: Angio CT of chest: done 09/13/18 IMPRESSION: No evidence of pulmonary emboli. Bilateral pulmonary infiltrates may be related to pneumonia. Bilateral pleural effusions are present . Assessment and Plan 57-year-old -[place] male who is an ongoing smoker with history of COPD presents to [facility] ED with complaints of bilateral lower extremity edema and shortness of breath with activity. Patient states that for the past 3 days he has been experiencing worsening bilateral lower extremity edema and shortness of breath with exertion. Patient states that he is unable to take out the garbage without becoming short of breath. He denies any previous cardiac history or workup. 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 Patient also complains of wheezing and cough with yellow sputum production. Of note patient was seen in ED on 09/04 treated for pneumonia. Patient is on Levaquin. Patient afebrile and has no leukocytosis Patient has history of smoking 3/4 th Pack a day for 30 years. Patient recently also smoking E cigaretts. Patient has no known allergies. Patient and has four children. Chest xray reported b mild bilateral scattered infiltrates Small bilateral effusions. Angio CT of chest reported No PE. Reported bilateral infiltrates and bilateral pleural effusions. - Patient Problems (1) CAP (community acquired pneumonia) Current Visit: No Status: Acute Qualifiers: Laterality: right Lung location: upper lobe of lung Qualified Code(s): J18.1 - Lobar pneumonia, unspecified organism Plan to address problem: Patient is on Levaquin. (2) New onset of congestive heart failure Current Visit: Yes Status: Acute Plan to address problem: Management as per primary care and cardiology. (3) Tobacco use Current Visit: Yes Status: Acute Plan to address problem: Counselled to stop smoking. (4) Bilateral pleural effusion Current Visit: Yes Status: Acute Plan to address problem: Obtaining ultrasound of chest. (5) COPD (chronic obstructive pulmonary disease) Current Visit: Yes Status: Acute Plan to address problem: With history of smoking Possible COPD. O2 2 litres via nasal canula. Albuterol/atrovent aerosol treatments q 6 hours. Continue I/V solumedrol Continue I/V Levaquin. Continue S/C Lovenox. Recommend GI Prophylaxis. ABGs on room air. PFTs as out patient.
--- NOTE | 2018-09-14 17:48 | Progress Note ---
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 He was admitted for CHF * CXR 2view Impression: Mild bilateral scattered infiltrates in both lungs. Mild bilateral effusions. * Initial labs: D-Dimer 381.33, proBNP 2708, hgb 9.9 with MCV 75 normal plt, wbc * v/q scan intermediate for PE (in the setting of abnormal cxr, not really sure; therefore, treat for PE until CTA chest is available) * 2D ECHO conclusions: The left ventricular chamber size is severely dilated, global LVSF is severely decreased, estimated EF is 10-15%, left ventricular diastolic filling pattern is restrictive, cannot exclude a layered apical thrombus, left atrium is mild to moderately dilated, right ventricle is mo derately dilated, severe MR, repeat limited echo with IV contrast is warranted. * CTA chest and repeat Echo did not show VTE, stop therapeutic lovenox, CTA chest report bilateral pneumonia, increase levaquin to 750mg/d and consulted Pulm. 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 Tobacco abuse, Counseled for smoking cessation 15 MINS COUNSELLING PROVIDED, refuses nicotine patch DVT PPX on Lovenox History Interval history: Patient seen and examined, today, clinically improving. No new complaints. Was upset earlier about his diagnosis but now calm and understanding the way forward Hospitalist Physical - Physical exam Narrative exam: Narrative exam: Gen: WDWN, NAD, Awake, Alert, Orientated HEENT: NCAT, EOMI, PERRL, OP Clear Neck: supple, no adenopathy, no thyromegaly, JVD CVS/Heart: Regular, normal S1S2, pulses present bilaterally Chest/Lungs: bibasilar crackles, diminished bs Symmetrical chest expansion, good air entry bilaterally GI/Abdomen: soft, NTND, good bowel sounds, no guarding or rebound /Bladder: no suprapubic tenderness, no CVA or paraspinal tenderness Extermity/Skin: +Trace BLE edema, no obvious rash MSK: FROM x 4 Neuro: CN 2-12 grossly intact, no new focal deficits Psych: calm - Constitutional Vitals: Temp Pulse Resp BP Pulse Ox 98.5 F 91 H 20 124/64 97 09/14/18 04:47 09/14/18 08:19 09/14/18 08:19 09/14/18 09:39 09/14/18 08:18 General appearance: Present: no acute distress Results - Labs CBC & Chem 7: 09/13/18 00:17 09/13/18 00:17 Labs: Laboratory Last Values WBC 9.4 K/mm3 (4.5-11.0) 09/13/18 00:17 RBC 3.81 M/mm3 (3.65-5.03) 09/13/18 00:17 Hgb 9.8 gm/dl (11.8-15.2) L 09/13/18 00:17 Hct 28.7 % (35.5-45.6) L 09/13/18 00:17 MCV 75 fl (84-94) L 09/13/18 00:17 MCH 26 pg (28-32) L 09/13/18 00:17 MCHC 34 % (32-34) 09/13/18 00:17 RDW 17.6 % (13.2-15.2) H 09/13/18 00:17 Plt Count 411 K/mm3 (140-440) 09/13/18 00:17 Lymph % (Auto) 7.4 % (13.4-35.0) L 09/13/18 00:17 [place] % (Auto) 2.6 % (0.0-7.3) 09/13/18 00:17 Eos % (Auto) 0.0 % (0.0-4.3) 09/13/18 00:17 Baso % (Auto) 0.4 % (0.0-1.8) 09/13/18 00:17 Lymph # 0.7 K/mm3 (1.2-5.4) L 09/13/18 00:17 [place] # 0.2 K/mm3 (0.0-0.8) 09/13/18 00:17 Eos # 0.0 K/mm3 (0.0-0.4) 09/13/18 00:17 Baso # 0.0 K/mm3 (0.0-0.1) 09/13/18 00:17 Seg Neutrophils % 89.6 % (40.0-70.0) H 09/13/18 00:17 Seg Neutrophils # 8.4 K/mm3 (1.8-7.7) H 09/13/18 00:17 PT 14.2 Sec. (12.2-14.9) 09/13/18 00:17 INR 1.13 (0.87-1.13) 09/13/18 00:17 381.33 ng/mlDDU (0-234) H 09/11/18 04:33 Sodium 139 mmol/L (137-145) 09/13/18 00:17 Potassium 4.0 mmol/L (3.6-5.0) 09/13/18 00:17 Chloride 100.5 mmol/L (98-107) 09/13/18 00:17 Carbon Dioxide 26 mmol/L (22-30) 09/13/18 00:17 17 mmol/L 09/13/18 00:17 BUN 15 mg/dL (9-20) 09/13/18 00:17 0.9 mg/dL (0.8-1.5) 09/13/18 00:17 Estimated GFR > 60 ml/min 09/13/18 00:17 17 % 09/13/18 00:17 Glucose 141 mg/dL (75-100) H 09/13/18 00:17 POC Glucose 143 (70-105) H 09/13/18 22:21 Calcium 8.8 mg/dL (8.4-10.2) 09/13/18 00:17 < 0.010 ng/mL (0.00-0.029) 09/11/18 07:23 NT-Pro-B Natriuret Pep 2708 pg/mL (0-900) H 09/11/18 02:51 Active Medications - Current Medications Current Medications: Generic Name Dose Route Start Last Admin Trade Name Freq PRN Reason Stop Dose Admin Acetaminophen 650 mg 09/11/18 05:44 Tylenol PO Q4H PRN Pain MILD(1-3)/Fever >100.5/[place] Albuterol 2.5 mg 09/11/18 06:08 09/11/18 16:25 Proventil IH 2.5 mg Q4HRT PRN Administration Shortness Of Breath Albuterol/Ipratropium 1 ampul 09/11/18 09:00 09/14/18 08:19 Duoneb *Not For Prn Use* IH 1 ampul Q12HRT MARLEN Administration Aspirin 81 mg 09/11/18 10:00 09/14/18 09:38 Baby Aspirin PO 81 mg QDAY MARLEN Administration Budesonide 0.5 mg 09/11/18 08:00 09/14/18 08:19 Pulmicort IH 0.5 mg Q12HRT MARLEN Administration Carvedilol 6.25 mg 09/13/18 11:00 09/14/18 09:39 Coreg PO 6.25 mg BID MARLEN Administration Docusate Sodium 100 mg 09/11/18 10:00 09/14/18 09:39 Colace PO 100 mg BID MARLEN Administration Enoxaparin Sodium 40 mg 09/14/18 22:00 Lovenox SUB-Q QDAY@2200 MARLEN Furosemide 60 mg 09/13/18 18:00 09/14/18 06:14 Lasix IV 60 mg 0600,1800 MARLEN Administration Guaifenesin 600 mg 09/11/18 10:00 09/14/18 09:39 Mucinex Er PO 600 mg BID MARLEN Administration Guaifenesin 200 mg 09/12/18 02:48 09/13/18 03:03 Robitussin PO 200 mg Q4H PRN Administration Cough Milrinone Lactate/Dextrose 20 mg in 100 mls @ 12.825 mls/hr 09/13/18 11:00 09/14/18 13:34 Milrinone-D5w 20 Mg/100 Ml IV 09/16/18 10:59 0.375 mcg/kg/min TITR MARELN 12.825 mls/hr Administration 0.375 MCG/KG/MIN Levofloxacin 750 mg 09/14/18 10:00 09/14/18 09:39 Levaquin PO 750 mg Q24HR MARLEN Administration Lisinopril 5 mg 09/12/18 10:00 09/14/18 09:39 Zestril PO 5 mg QDAY MARLEN Administration Methylprednisolone Sodium Succinate 20 mg 09/11/18 09:00 09/14/18 09:40 Solu-Medrol IV 20 mg Q8H MARLEN Administration Ondansetron HCl 4 mg 09/11/18 05:44 Zofran IV Q8H PRN Nausea And Vomiting Sodium Chloride 10 ml 09/11/18 10:00 09/14/18 09:39 Sodium Chloride Flush Syringe 10 Ml IV 10 ml BID MARLEN Administration Sodium Chloride 10 ml 09/11/18 05:44 Sodium Chloride Flush Syringe 10 Ml IV PRN PRN LINE FLUSH Spironolactone 25 mg 09/12/18 10:00 09/14/18 09:38 Aldactone PO 25 mg QDAY MARLEN Administration Temazepam 15 mg 09/12/18 22:10 09/12/18 23:23 Restoril PO 15 mg QHS PRN Administration Sleep
[2018-09-14] MEDS: LOVENOX SUB-Q SCH (21:59)
[2018-09-15] MEDS: SOLU-Medrol IV SCH ×3 (00:27→18:46)
[2018-09-15] MEDS: MILRINONE-D5W 20 MG/100 ML 20 MG/100 ML BAG IV SCH ×3 (04:30→18:18)
[2018-09-15] MEDS: LASIX IV SCH ×2 (05:02→18:46)
[2018-09-15] MEDS: DUONEB *Not for PRN Use IH SCH ×2 (08:13→20:30)
[2018-09-15] MEDS: PULMICORT IH SCH ×2 (08:13→20:30)
--- NOTE | 2018-09-15 09:16 | Ultrasound Report ---
ULTRASOUND CHEST History: Bilateral pleural effusions Findings: Targeted ultrasound on both sides of the chest demonstrate moderate bilateral simple appearing pleural effusions. The right pleural effusion measures 465 cc. The left pleural effusion measures 434 cc. Impression: Bilateral pleural effusions as described.
--- NOTE | 2018-09-15 09:56 | Progress Note ---
Assessment and Plan Patient awake. Resting on 1 litre O2. O2 saturation 94%. Patient says feeling better and breathing better. No acute respiratory distress. Running low grade temp. No leukocytosis. Ultrasound of chest done to day reported bilateral pleural effusions.Recommend thoracentesis. - Patient Problems (1) CAP (community acquired pneumonia) Current Visit: No Status: Acute Qualifiers: Laterality: right Lung location: upper lobe of lung Qualified Code(s): J18.1 - Lobar pneumonia, unspecified organism Plan to address problem: Patient is on Levaquin. (2) New onset of congestive heart failure Current Visit: Yes Status: Acute Plan to address problem: Management as per primary care and cardiology. (3) Tobacco use Current Visit: Yes Status: Acute Plan to address problem: Counselled to stop smoking. (4) Bilateral pleural effusion Current Visit: Yes Status: Acute Plan to address problem: Ultrasound of chest reported bilateral pleural effusions. Recommend thoracentesis. thoracentesis. (5) COPD (chronic obstructive pulmonary disease) Current Visit: Yes Status: Acute Plan to address problem: With history of smoking Possible COPD. O2 2 litres via nasal canula. Albuterol/atrovent aerosol treatments q 6 hours. Continue I/V solumedrol Continue I/V Levaquin. Continue S/C Lovenox. Recommend GI Prophylaxis. PFTs as out patient. Subjective Date of service: 09/15/18 Principal diagnosis: CHF Interval history: Patient awake. Resting on 1 litre O2. O2 saturation 94%. Patient says feeling better and breathing better. No acute respiratory distress. Running low grade temp. No leukocytosis. Ultrasound of chest reported bilateral pleural effusions. Recommend thoracentesis. Objective Vital Signs - 12hr 09/14/18 09/14/18 09/15/18 22:02 23:18 03:46 Temperature 98.2 F 97.3 F L Pulse Rate 97 H 98 H 92 H Pulse Rate [ Bilateral] Respiratory 18 16 Rate Respiratory Rate [Bilateral ] Blood Pressure 140/78 132/69 131/66 O2 Sat by Pulse 92 96 Oximetry 09/15/18 09/15/18 09/15/18 07:52 08:13 08:15 Temperature 99.3 F Pulse Rate Pulse Rate [ 94 H Bilateral] Respiratory 18 Rate Respiratory 18 Rate [Bilateral ] Blood Pressure 142/84 O2 Sat by Pulse 94 Oximetry 09/15/18 08:30 Temperature Pulse Rate Pulse Rate [ 95 H Bilateral] Respiratory Rate Respiratory 18 Rate [Bilateral ] Blood Pressure O2 Sat by Pulse Oximetry Constitutional: no acute distress, alert Eyes: non-icteric Neck: supple, no lymphadenopathy Ascultation: Bilateral: rhonchi, other (Prolonged expiratory phase.) Cardiovascular: regular rate and rhythm Gastrointestinal: normoactive bowel sounds, soft, non-tender Integumentary: normal Extremities: no cyanosis, no edema Neurologic: normal mental status, non-focal exam, pupils equal and round, CN II- XII normal Psychiatric: anxious CBC and BMP: 09/13/18 00:17 09/13/18 00:17 ABG, PT/INR, D-dimer: PT/INR, D-dimer PT 14.2 Sec. (12.2-14.9) 09/13/18 00:17 INR 1.13 (0.87-1.13) 09/13/18 00:17 381.33 ng/mlDDU (0-234) H 09/11/18 04:33 Abnormal lab findings: Abnormal Labs 09/11/18 09/11/18 09/11/18 02:51 02:51 02:51 Hgb 9.9 L Hct 29.3 L MCV 75 L MCH 25 L RDW 17.9 H Lymph % (Auto) [place] % (Auto) 7.6 H Lymph # Seg Neutrophils % Seg Neutrophils # D-Dimer Glucose POC Glucose Calcium 8.3 L NT-Pro-B Natriuret Pep 2708 H 09/11/18 09/13/18 09/13/18 04:33 00:17 00:17 Hgb 9.8 L Hct 28.7 L MCV 75 L MCH 26 L RDW 17.6 H Lymph % (Auto) 7.4 L [place] % (Auto) Lymph # 0.7 L Seg Neutrophils % 89.6 H Seg Neutrophils # 8.4 H D-Dimer 381.33 H Glucose 141 H POC Glucose Calcium NT-Pro-B Natriuret Pep 09/13/18 09/13/18 06:52 22:21 Hgb Hct MCV MCH RDW Lymph % (Auto) [place] % (Auto) Lymph # Seg Neutrophils % Seg Neutrophils # D-Dimer Glucose POC Glucose 126 H 143 H Calcium NT-Pro-B Natriuret Pep Additional Studies: Ultrasound of chest done to day reported bilateral pleural effusions.
--- NOTE | 2018-09-15 10:39 | Progress Note ---
<MARCI ZAVALA - Last Filed: 09/15/18 12:34> Assessment and Plan Shortness of breath CXR showing cardiomegaly with bilateral pulmonary infiltrates VQ scan revealed intermediate probability for PE A CTA reports no evidence of PE Acute decompensated systolic heart failure Dilated cardiomyopathy, uncertain duration Severely dilated LV cavity, EF 10-15% A repeat of the echocardiogram shows no significant evidence of left ventricular thrombus or cardiac thromboembolism. Nicotine dependence Recommendations: Smoking cessation. Continue aggressive heart failure management with intravenous diuretics and intravenous inotropic therapy with milrinone. Pre-discharged ischemic workup with noninvasive evaluation as indicated. Subjective Date of service: 09/15/18 Principal diagnosis: CHF Interval history: Patient has no complaints. He reports his breathing is better and he is diuresing well. No reported events on telemetry overnight. Objective Vital Signs Temp Pulse Pulse Resp Resp BP Pulse Ox 09/15/18 08:30 95 H 18 09/15/18 08:15 94 09/15/18 08:13 94 H 18 09/15/18 07:52 99.3 F 18 142/84 09/15/18 03:46 97.3 F L 92 H 16 131/66 96 09/14/18 23:18 98.2 F 98 H 18 132/69 92 09/14/18 22:02 97 H 140/78 09/14/18 21:16 84 19 09/14/18 21:12 99 H 09/14/18 21:03 95 09/14/18 20:00 88 18 09/14/18 19:39 99.7 F H 97 H 16 140/78 92 09/14/18 17:10 98.1 F 94 H 18 124/73 95 09/14/18 12:28 97.5 F L 18 99/80 - Physical Examination General: No Apparent Distress HEENT: Positive: PERRL Neck: Positive: neck supple Cardiac: Positive: Reg Rate and Rhythm Lungs: Positive: Decreased Breath Sounds Neuro: Positive: Grossly Intact Extremities: Absent: edema <SONJA GALE - Last Filed: 09/15/18 13:14> Assessment and Plan Mr. townsend is a 57-year-old gentleman who presents [facility] with a dilated cardiomyopathy with ejection fraction of 10-15%. At this time plan to continue current medical therapy for treatment of cardiomyopathy. Patient is plan for Lexiscan or evaluation tomorrow Objective Vital Signs Temp Pulse Pulse Resp Resp BP Pulse Ox 09/15/18 08:30 95 H 18 09/15/18 08:15 94 09/15/18 08:13 94 H 18 09/15/18 07:52 99.3 F 18 142/84 09/15/18 03:46 97.3 F L 92 H 16 131/66 96 09/14/18 23:18 98.2 F 98 H 18 132/69 92 09/14/18 22:02 97 H 140/78 09/14/18 21:16 84 19 09/14/18 21:12 99 H 09/14/18 21:03 95 09/14/18 20:00 88 18 09/14/18 19:39 99.7 F H 97 H 16 140/78 92 09/14/18 17:10 98.1 F 94 H 18 124/73 95
[2018-09-15] MEDS: BABY ASPIRIN PO SCH (10:42)
[2018-09-15] MEDS: MUCINEX ER PO SCH ×2 (10:42→21:43)
[2018-09-15] MEDS: LEVAQUIN PO SCH (10:42)
[2018-09-15] MEDS: ALDACTONE PO SCH (10:42)
[2018-09-15] MEDS: COREG PO SCH ×2 (10:42→21:43)
[2018-09-15] MEDS: SODIUM CHLORIDE FLUSH SYRINGE 10 ML IV SCH ×2 (10:43→21:44)
[2018-09-15] MEDS: COLACE PO SCH ×2 (10:43→21:43)
[2018-09-15] MEDS: ZESTRIL PO SCH (10:43)
--- NOTE | 2018-09-15 15:09 | Progress Note ---
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 He was admitted for CHF * CXR 2view Impression: Mild bilateral scattered infiltrates in both lungs. Mild bilateral effusions. * Initial labs: D-Dimer 381.33, proBNP 2708, hgb 9.9 with MCV 75 normal plt, wbc * v/q scan intermediate for PE (in the setting of abnormal cxr, not really sure; therefore, treat for PE until CTA chest is available) * 2D ECHO conclusions: The left ventricular chamber size is severely dilated, global LVSF is severely decreased, estimated EF is 10-15%, left ventricular diastolic filling pattern is restrictive, cannot exclude a layered apical thrombus, left atrium is mild to moderately dilated, right ventricle is mo derately dilated, severe MR, repeat limited echo with IV contrast is warranted. * CTA chest and repeat Echo did not show VTE, stop therapeutic lovenox, CTA chest report bilateral pneumonia, increase levaquin to 750mg/d and consulted Pulm. New onset of Acute decompensated systolic heart failure: treat with iv lasix, ECHO reviewed, Cardiology consulted, input noted, milinrone drip started. 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 Tobacco abuse, Counseled for smoking cessation 15 MINS COUNSELLING PROVIDED, refuses nicotine patch DVT PPX on Lovenox History Interval history: Patient seen and examined, today, clinically improving. No new complaints. ambulating around the nursing station with improved conditioning Hospitalist Physical - Physical exam Narrative exam: Narrative exam: Gen: WDWN, NAD, Awake, Alert, Orientated HEENT: NCAT, EOMI, PERRL, OP Clear Neck: supple, no adenopathy, no thyromegaly, JVD CVS/Heart: Regular, normal S1S2, pulses present bilaterally Chest/Lungs: bibasilar crackles, diminished bs Symmetrical chest expansion, good air entry bilaterally GI/Abdomen: soft, NTND, good bowel sounds, no guarding or rebound /Bladder: no suprapubic tenderness, no CVA or paraspinal tenderness Extermity/Skin: +Trace BLE edema, no obvious rash MSK: FROM x 4 Neuro: CN 2-12 grossly intact, no new focal deficits Psych: calm - Constitutional Vitals: Temp Pulse Resp BP Pulse Ox 99.3 F 95 H 18 142/84 94 09/15/18 07:52 09/15/18 08:30 09/15/18 08:30 09/15/18 07:52 09/15/18 08:15 General appearance: Present: no acute distress Results - Labs CBC & Chem 7: 09/13/18 00:17 09/13/18 00:17 Labs: Laboratory Last Values WBC 9.4 K/mm3 (4.5-11.0) 09/13/18 00:17 RBC 3.81 M/mm3 (3.65-5.03) 09/13/18 00:17 Hgb 9.8 gm/dl (11.8-15.2) L 09/13/18 00:17 Hct 28.7 % (35.5-45.6) L 09/13/18 00:17 MCV 75 fl (84-94) L 09/13/18 00:17 MCH 26 pg (28-32) L 09/13/18 00:17 MCHC 34 % (32-34) 09/13/18 00:17 RDW 17.6 % (13.2-15.2) H 09/13/18 00:17 Plt Count 411 K/mm3 (140-440) 09/13/18 00:17 Lymph % (Auto) 7.4 % (13.4-35.0) L 09/13/18 00:17 [place] % (Auto) 2.6 % (0.0-7.3) 09/13/18 00:17 Eos % (Auto) 0.0 % (0.0-4.3) 09/13/18 00:17 Baso % (Auto) 0.4 % (0.0-1.8) 09/13/18 00:17 Lymph # 0.7 K/mm3 (1.2-5.4) L 09/13/18 00:17 [place] # 0.2 K/mm3 (0.0-0.8) 09/13/18 00:17 Eos # 0.0 K/mm3 (0.0-0.4) 09/13/18 00:17 Baso # 0.0 K/mm3 (0.0-0.1) 09/13/18 00:17 Seg Neutrophils % 89.6 % (40.0-70.0) H 09/13/18 00:17 Seg Neutrophils # 8.4 K/mm3 (1.8-7.7) H 09/13/18 00:17 PT 14.2 Sec. (12.2-14.9) 09/13/18 00:17 INR 1.13 (0.87-1.13) 09/13/18 00:17 381.33 ng/mlDDU (0-234) H 09/11/18 04:33 POC ABG pH 7.480 (7.35-7.45) H 09/15/18 11:45 POC ABG pCO2 36.6 (35-45) 09/15/18 11:45 POC ABG pO2 91 (80-105) 09/15/18 11:45 POC ABG HCO3 27.3 (22-26 mml/L) 09/15/18 11:45 POC ABG Total CO2 28 (23-27mmol/L) 09/15/18 11:45 POC ABG O2 Sat 98 09/15/18 11:45 POC ABG Base Excess 4 ((-2) - (+3)mmol/L) 09/15/18 11:45 21 % 09/15/18 11:45 Sodium 139 mmol/L (137-145) 09/13/18 00:17 Potassium 4.0 mmol/L (3.6-5.0) 09/13/18 00:17 Chloride 100.5 mmol/L (98-107) 09/13/18 00:17 Carbon Dioxide 26 mmol/L (22-30) 09/13/18 00:17 17 mmol/L 09/13/18 00:17 BUN 15 mg/dL (9-20) 09/13/18 00:17 0.9 mg/dL (0.8-1.5) 09/13/18 00:17 Estimated GFR > 60 ml/min 09/13/18 00:17 17 % 09/13/18 00:17 Glucose 141 mg/dL (75-100) H 09/13/18 00:17 POC Glucose 143 (70-105) H 09/13/18 22:21 Calcium 8.8 mg/dL (8.4-10.2) 09/13/18 00:17 < 0.010 ng/mL (0.00-0.029) 09/11/18 07:23 NT-Pro-B Natriuret Pep 2708 pg/mL (0-900) H 09/11/18 02:51 Active Medications - Current Medications Current Medications: Generic Name Dose Route Start Last Admin Trade Name Freq PRN Reason Stop Dose Admin Acetaminophen 650 mg 09/11/18 05:44 Tylenol PO Q4H PRN Pain MILD(1-3)/Fever >100.5/[place] Albuterol 2.5 mg 09/11/18 06:08 09/11/18 16:25 Proventil IH 2.5 mg Q4HRT PRN Administration Shortness Of Breath Albuterol/Ipratropium 1 ampul 09/11/18 09:00 09/15/18 08:13 Duoneb *Not For Prn Use* IH 1 ampul Q12HRT MARLEN Administration Aspirin 81 mg 09/11/18 10:00 09/15/18 10:42 Baby Aspirin PO 81 mg QDAY MARLEN Administration Budesonide 0.5 mg 09/11/18 08:00 09/15/18 08:13 Pulmicort IH 0.5 mg Q12HRT MARLEN Administration Carvedilol 6.25 mg 09/13/18 11:00 09/15/18 10:42 Coreg PO 6.25 mg BID MARLEN Administration Docusate Sodium 100 mg 09/11/18 10:00 09/15/18 10:43 Colace PO 100 mg BID MARLEN Administration Enoxaparin Sodium 40 mg 09/14/18 22:00 09/14/18 21:59 Lovenox SUB-Q 40 mg QDAY@2200 MARLEN Administration Furosemide 60 mg 09/13/18 18:00 09/15/18 05:02 Lasix IV 20 mg 0600,1800 MARLEN Administration Guaifenesin 600 mg 09/11/18 10:00 09/15/18 10:42 Mucinex Er PO 600 mg BID MARLEN Administration Guaifenesin 200 mg 09/12/18 02:48 09/13/18 03:03 Robitussin PO 200 mg Q4H PRN Administration Cough Milrinone Lactate/Dextrose 20 mg in 100 mls @ 12.825 mls/hr 09/13/18 11:00 09/15/18 10:42 Milrinone-D5w 20 Mg/100 Ml IV 09/16/18 10:59 0.375 mcg/kg/min TITR MARLEN 12.825 mls/hr Administration 0.375 MCG/KG/MIN Levofloxacin 750 mg 09/14/18 10:00 09/15/18 10:42 Levaquin PO 750 mg Q24HR MARLEN Administration Lisinopril 5 mg 09/12/18 10:00 09/15/18 10:43 Zestril PO 5 mg QDAY MARLEN Administration Methylprednisolone Sodium Succinate 20 mg 09/11/18 09:00 09/15/18 10:44 Solu-Medrol IV 20 mg Q8H MARLEN Administration Ondansetron HCl 4 mg 09/11/18 05:44 Zofran IV Q8H PRN Nausea And Vomiting Sodium Chloride 10 ml 09/11/18 10:00 09/15/18 10:43 Sodium Chloride Flush Syringe 10 Ml IV 10 ml BID MARLEN Administration Sodium Chloride 10 ml 09/11/18 05:44 Sodium Chloride Flush Syringe 10 Ml IV PRN PRN LINE FLUSH Spironolactone 25 mg 09/12/18 10:00 09/15/18 10:42 Aldactone PO 25 mg QDAY MARLEN Administration Temazepam 15 mg 09/12/18 22:10 09/12/18 23:23 Restoril PO 15 mg QHS PRN Administration Sleep
[2018-09-15] MEDS: LOVENOX SUB-Q SCH (21:43)
[2018-09-16] MEDS: SOLU-Medrol IV SCH ×3 (00:19→19:26)
[2018-09-16] MEDS: MILRINONE-D5W 20 MG/100 ML 20 MG/100 ML BAG IV SCH (03:45)
[2018-09-16] MEDS: LASIX IV SCH ×2 (05:19→19:27)
[2018-09-16] MEDS ORDERED: LEXISCAN IV ONE ×2 (07:37→07:49)
[2018-09-16] MEDS: PULMICORT IH SCH ×2 (07:56→21:03)
[2018-09-16] MEDS: DUONEB *Not for PRN Use IH SCH ×2 (07:56→21:03)
[2018-09-16] MEDS: BABY ASPIRIN PO SCH (09:25)
[2018-09-16] MEDS: LEVAQUIN PO SCH (09:25)
[2018-09-16] MEDS: MUCINEX ER PO SCH ×2 (09:25→21:21)
[2018-09-16] MEDS: ZESTRIL PO SCH (09:26)
[2018-09-16] MEDS: COREG PO SCH ×2 (09:27→21:21)
[2018-09-16] MEDS: ALDACTONE PO SCH (09:27)
[2018-09-16] MEDS: COLACE PO SCH ×2 (09:28→21:21)
[2018-09-16] MEDS: SODIUM CHLORIDE FLUSH SYRINGE 10 ML IV SCH ×2 (09:28→21:22)
--- NOTE | 2018-09-16 11:45 | Progress Note ---
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 He was admitted for CHF * CXR 2view Impression: Mild bilateral scattered infiltrates in both lungs. Mild bilateral effusions. * Initial labs: D-Dimer 381.33, proBNP 2708, hgb 9.9 with MCV 75 normal plt, wbc * v/q scan intermediate for PE (in the setting of abnormal cxr, not really sure; therefore, treat for PE until CTA chest is available) * 2D ECHO conclusions: The left ventricular chamber size is severely dilated, global LVSF is severely decreased, estimated EF is 10-15%, left ventricular diastolic filling pattern is restrictive, cannot exclude a layered apical thrombus, left atrium is mild to moderately dilated, right ventricle is mo derately dilated, severe MR, repeat limited echo with IV contrast is warranted. * CTA chest and repeat Echo did not show VTE, stop therapeutic lovenox, CTA chest report bilateral pneumonia, increase levaquin to 750mg/d and consulted Pulm. New onset of Acute decompensated systolic heart failure: treat with iv lasix, ECHO reviewed, Cardiology consulted, input noted, milinrone drip started. stress test planned in am and anticipate discharge if negative Acute exacerbation COPD, high complex medical decision, using steroids will worsen CHF via fluid retention: use nebs, abx and lower dose steroids Hypertension: low salt diet, careful starting b-hermila in acute CHF Bilateral Pleural effusion: Discussed with cardiology, likely secondary to CHF, although patient has a hx of tobacco use, Recommend holding off on Thoracentsis and repeat study in a few weeks. 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 therapeutic lovenox discontinued. Tobacco abuse, Counseled for smoking cessation 15 MINS COUNSELLING PROVIDED, refuses nicotine patch. Stress test in AM DVT PPX on Lovenox History Interval history: Patient seen and examined, today, clinically improving. No new complaints. Hospitalist Physical - Physical exam Narrative exam: Narrative exam: Gen: WDWN, NAD, Awake, Alert, Orientated HEENT: NCAT, EOMI, PERRL, OP Clear Neck: supple, no adenopathy, no thyromegaly, JVD CVS/Heart: Regular, normal S1S2, pulses present bilaterally Chest/Lungs: diminished bs Symmetrical chest expansion, good air entry bilaterally GI/Abdomen: soft, NTND, good bowel sounds, no guarding or rebound /Bladder: no suprapubic tenderness, no CVA or paraspinal tenderness Extermity/Skin: +no noted edema, no obvious rash MSK: FROM x 4 Neuro: CN 2-12 grossly intact, no new focal deficits Psych: calm - Constitutional Vitals: Temp Pulse Resp BP Pulse Ox 98.3 F 101 H 18 113/72 96 09/16/18 07:36 09/16/18 09:27 09/16/18 08:02 09/16/18 07:36 09/16/18 07:59 General appearance: Present: no acute distress Results - Labs CBC & Chem 7: 09/13/18 00:17 09/13/18 00:17 Labs: Laboratory Last Values WBC 9.4 K/mm3 (4.5-11.0) 09/13/18 00:17 RBC 3.81 M/mm3 (3.65-5.03) 09/13/18 00:17 Hgb 9.8 gm/dl (11.8-15.2) L 09/13/18 00:17 Hct 28.7 % (35.5-45.6) L 09/13/18 00:17 MCV 75 fl (84-94) L 09/13/18 00:17 MCH 26 pg (28-32) L 09/13/18 00:17 MCHC 34 % (32-34) 09/13/18 00:17 RDW 17.6 % (13.2-15.2) H 09/13/18 00:17 Plt Count 411 K/mm3 (140-440) 09/13/18 00:17 Lymph % (Auto) 7.4 % (13.4-35.0) L 09/13/18 00:17 Mills % (Auto) 2.6 % (0.0-7.3) 09/13/18 00:17 Eos % (Auto) 0.0 % (0.0-4.3) 09/13/18 00:17 Baso % (Auto) 0.4 % (0.0-1.8) 09/13/18 00:17 Lymph # 0.7 K/mm3 (1.2-5.4) L 09/13/18 00:17 Mills # 0.2 K/mm3 (0.0-0.8) 09/13/18 00:17 Eos # 0.0 K/mm3 (0.0-0.4) 09/13/18 00:17 Baso # 0.0 K/mm3 (0.0-0.1) 09/13/18 00:17 Seg Neutrophils % 89.6 % (40.0-70.0) H 09/13/18 00:17 Seg Neutrophils # 8.4 K/mm3 (1.8-7.7) H 09/13/18 00:17 PT 14.2 Sec. (12.2-14.9) 09/13/18 00:17 INR 1.13 (0.87-1.13) 09/13/18 00:17 381.33 ng/mlDDU (0-234) H 09/11/18 04:33 POC ABG pH 7.480 (7.35-7.45) H 09/15/18 11:45 POC ABG pCO2 36.6 (35-45) 09/15/18 11:45 POC ABG pO2 91 (80-105) 09/15/18 11:45 POC ABG HCO3 27.3 (22-26 mml/L) 09/15/18 11:45 POC ABG Total CO2 28 (23-27mmol/L) 09/15/18 11:45 POC ABG O2 Sat 98 09/15/18 11:45 POC ABG Base Excess 4 ((-2) - (+3)mmol/L) 09/15/18 11:45 21 % 09/15/18 11:45 Sodium 139 mmol/L (137-145) 09/13/18 00:17 Potassium 4.0 mmol/L (3.6-5.0) 09/13/18 00:17 Chloride 100.5 mmol/L (98-107) 09/13/18 00:17 Carbon Dioxide 26 mmol/L (22-30) 09/13/18 00:17 17 mmol/L 09/13/18 00:17 BUN 15 mg/dL (9-20) 09/13/18 00:17 0.9 mg/dL (0.8-1.5) 09/13/18 00:17 Estimated GFR > 60 ml/min 09/13/18 00:17 17 % 09/13/18 00:17 Glucose 141 mg/dL (75-100) H 09/13/18 00:17 POC Glucose 143 (70-105) H 09/13/18 22:21 Calcium 8.8 mg/dL (8.4-10.2) 09/13/18 00:17 < 0.010 ng/mL (0.00-0.029) 09/11/18 07:23 NT-Pro-B Natriuret Pep 2708 pg/mL (0-900) H 09/11/18 02:51 Active Medications - Current Medications Current Medications: Generic Name Dose Route Start Last Admin Trade Name Freq PRN Reason Stop Dose Admin Acetaminophen 650 mg 09/11/18 05:44 Tylenol PO Q4H PRN Pain MILD(1-3)/Fever >100.5/[place] Albuterol 2.5 mg 09/11/18 06:08 09/11/18 16:25 Proventil IH 2.5 mg Q4HRT PRN Administration Shortness Of Breath Albuterol/Ipratropium 1 ampul 09/11/18 09:00 09/16/18 07:56 Duoneb *Not For Prn Use* IH 1 ampul Q12HRT MARLEN Administration Aspirin 81 mg 09/11/18 10:00 09/16/18 09:25 Baby Aspirin PO 81 mg QDAY MARLEN Administration Budesonide 0.5 mg 09/11/18 08:00 09/16/18 07:56 Pulmicort IH 0.5 mg Q12HRT MARLEN Administration Carvedilol 6.25 mg 09/13/18 11:00 09/16/18 09:27 Coreg PO 6.25 mg BID MARLEN Administration Docusate Sodium 100 mg 09/11/18 10:00 09/16/18 09:28 Colace PO 100 mg BID MARLEN Administration Enoxaparin Sodium 40 mg 09/14/18 22:00 09/15/18 21:43 Lovenox SUB-Q 40 mg QDAY@2200 MARLEN Administration Furosemide 60 mg 09/13/18 18:00 09/16/18 05:19 Lasix IV 60 mg 0600,1800 MARLEN Administration Guaifenesin 600 mg 06/22/19 10:00 09/16/18 09:25 Mucinex Er PO 600 mg BID MARLEN Administration Guaifenesin 200 mg 09/12/18 02:48 09/13/18 03:03 Robitussin PO 200 mg Q4H PRN Administration Cough Levofloxacin 750 mg 09/14/18 10:00 09/16/18 09:25 Levaquin PO 750 mg Q24HR MARLEN Administration Lisinopril 5 mg 09/12/18 10:00 09/16/18 09:26 Zestril PO 5 mg QDAY MARLEN Administration Methylprednisolone Sodium Succinate 20 mg 09/11/18 09:00 09/16/18 08:36 Solu-Medrol IV 20 mg Q8H MARLEN Administration Ondansetron HCl 4 mg 09/11/18 05:44 Zofran IV Q8H PRN Nausea And Vomiting Sodium Chloride 10 ml 09/11/18 10:00 09/16/18 09:28 Sodium Chloride Flush Syringe 10 Ml IV 10 ml BID MARLEN Administration Sodium Chloride 10 ml 09/11/18 05:44 09/16/18 09:26 Sodium Chloride Flush Syringe 10 Ml IV 10 ml PRN PRN Administration LINE FLUSH Spironolactone 25 mg 09/12/18 10:00 09/16/18 09:27 Aldactone PO 25 mg QDAY MARLEN Administration Temazepam 15 mg 09/12/18 22:10 09/12/18 23:23 Restoril PO 15 mg QHS PRN Administration Sleep
--- NOTE | 2018-09-16 12:16 | XRay Report ---
AP CHEST: HISTORY: Pleural effusion AP view of the chest demonstrates a normal mediastinal and cardiac contour with clear lungs and normal bony and soft tissue structures. Pulmonary infiltrates/edema and small pleural effusions have resolved since 09/11/18. IMPRESSION: Unremarkable AP chest.
--- NOTE | 2018-09-16 14:32 | Progress Note ---
Assessment and Plan - Patient Problems (1) New onset of congestive heart failure Current Visit: Yes Status: Acute Plan to address problem: Patient presented with new diagnosis of dilated cardiomyopathy and systolic heart failure. The patient will be stable for a Lexiscan thallium stress test tomorrow morning as a prelude to eventual cardiac discharge tomorrow. Subjective Date of service: 09/16/18 Principal diagnosis: CHF Interval history: The patient looks and feels better after aggressive diuresis over the past several days. I ordered a chest x-ray today which shows significant clearing of the bilateral pulmonary infiltrates. There is cardiomegaly. There is no significant residual pleural effusion on x-ray imaging. He was still maintained on intravenous milrinone by this morning. Objective Vital Signs Temp Pulse Pulse Pulse Resp Resp BP 09/16/18 11:31 98.4 F 93 H 18 142/84 09/16/18 10:00 100 H 09/16/18 09:27 101 H 09/16/18 09:26 101 H 09/16/18 08:02 96 H 18 09/16/18 07:59 09/16/18 07:58 96 H 18 09/16/18 07:36 98.3 F 98 H 18 113/72 09/16/18 03:50 98.2 F 84 20 129/68 09/15/18 23:52 98.5 F 98 H 20 117/68 09/15/18 22:00 97 H 09/15/18 20:40 98 H 20 09/15/18 20:33 09/15/18 20:32 96 H 20 09/15/18 20:04 98.3 F 98 H 20 138/85 09/15/18 16:19 98.3 F 18 133/78 Pulse Ox 09/16/18 11:31 92 09/16/18 10:00 95 09/16/18 09:27 09/16/18 09:26 09/16/18 08:02 09/16/18 07:59 96 09/16/18 07:58 09/16/18 07:36 97 09/16/18 03:50 96 09/15/18 23:52 96 09/15/18 22:00 09/15/18 20:40 09/15/18 20:33 95 09/15/18 20:32 09/15/18 20:04 96 09/15/18 16:19 - Physical Examination General: No Apparent Distress HEENT: Positive: PERRL Neck: Positive: neck supple Cardiac: Positive: Reg Rate and Rhythm Lungs: Positive: Decreased Breath Sounds Neuro: Positive: Grossly Intact Abdomen: Positive: Soft Skin: Positive: Clear Extremities: Absent: edema - Imaging and Cardiology EKG: image reviewed (sinus tachycardia 108 bpm)
[2018-09-16] MEDS: LOVENOX SUB-Q SCH (21:21)
[2018-09-17] MEDS: SOLU-Medrol IV SCH ×2 (00:55→11:38)
[2018-09-17] MEDS: LASIX IV SCH (06:20)
[2018-09-17] MEDS ORDERED: LEXISCAN IV ONE (08:07)
--- NOTE | 2018-09-17 10:35 | Progress Note ---
Assessment and Plan Shortness of breath CXR showing cardiomegaly with bilateral pulmonary infiltrates VQ scan revealed intermediate probability for PE A CTA reports no evidence of PE Acute decompensated systolic heart failure - resolved Dilated cardiomyopathy, uncertain duration Severely dilated LV cavity, EF 10-15% A repeat of the echocardiogram shows no significant evidence of left ventricular thrombus or cardiac thromboembolism. Lexiscan this admission consistent with non-ischemic cardiomyopathy Nicotine dependence Recommendations: Smoking cessation. Switch lasix to po Outpatient cardiology follow-up will be scheduled May go home cardiac hernandez Subjective Date of service: 09/17/18 Principal diagnosis: CHF Interval history: Patient is doing well He denies chest pain or shortness of breath No events on tele Objective Vital Signs Temp Pulse Pulse Resp Resp BP Pulse Ox 09/17/18 03:23 98.4 F 91 H 19 136/89 95 09/17/18 00:00 93 H 09/16/18 23:31 98.0 F 96 H 18 137/72 98 09/16/18 21:15 98 H 20 09/16/18 21:06 98 09/16/18 21:05 95 H 20 09/16/18 19:16 98.4 F 102 H 20 139/84 98 09/16/18 15:45 98.7 F 88 18 130/80 98 09/16/18 11:31 98.4 F 93 H 18 142/84 92 - Physical Examination General: No Apparent Distress HEENT: Positive: PERRL Neck: Positive: neck supple Cardiac: Positive: Reg Rate and Rhythm Lungs: Positive: Normal Exam Neuro: Positive: Grossly Intact Abdomen: Positive: Soft Skin: Positive: Clear Extremities: Absent: edema - Imaging and Cardiology EKG: image reviewed (sinus tachycardia 108 bpm)
--- NOTE | 2018-09-17 10:37 | Discharge Summary ---
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 He was admitted for CHF * CXR 2view Impression: Mild bilateral scattered infiltrates in both lungs. Mild bilateral effusions. * Initial labs: D-Dimer 381.33, proBNP 2708, hgb 9.9 with MCV 75 normal plt, wbc * v/q scan intermediate for PE (in the setting of abnormal cxr, not really sure; therefore, treat for PE until CTA chest is available) * 2D ECHO conclusions: The left ventricular chamber size is severely dilated, global LVSF is severely decreased, estimated EF is 10-15%, left ventricular diastolic filling pattern is restrictive, cannot exclude a layered apical thrombus, left atrium is mild to moderately dilated, right ventricle is moderately dilated, severe MR, repeat limited echo with IV contrast is warranted. * CTA chest and repeat Echo did not show VTE, stop therapeutic lovenox, CTA chest report bilateral pneumonia, increase levaquin to 750mg/d and consulted Pulm. * Extensive counselling provided to the patient, about his condition and the need for medication complaince and follow up with cardiology. New onset of Acute decompensated systolic heart failure: treated with iv lasix, ECHO reviewed, Cardiology consulted, input noted, milinrone drip was placed for 72 hrs and patient had a stress test which did not show any ischemia. Acute exacerbation COPD, high complex medical decision, using steroids will worsen CHF via fluid retention: use nebs, abx and lower dose steroids Hypertension: low salt diet, careful starting b-hermila in acute CHF Bilateral Pleural effusion: Discussed with cardiology, likely secondary to CHF, although patient has a hx of tobacco use, Recommend holding off on Thoracentsis and repeat study in a few weeks. 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 therapeutic lovenox discontinued. Tobacco abuse, Counseled for smoking cessation 15 MINS COUNSELLING PROVIDED, refuses nicotine patch. Disposition: - TO HOME OR SELFCARE Time spent for discharge: 35 mins Core Measure Documentation - Palliative Care Palliative Care/ Comfort Measures: Not Applicable - Core Measures Any of the following diagnoses?: heart failure - Heart Failure Discharge Requirements GEOVANI/ARB for LVSD if EF <40%: Yes Beta hermila at discharge: Yes Exam - Physical Exam Narrative exam: Narrative exam: Gen: WDWN, NAD, Awake, Alert, Orientated HEENT: NCAT, EOMI, PERRL, OP Clear Neck: supple, no adenopathy, no thyromegaly, JVD CVS/Heart: Regular, normal S1S2, pulses present bilaterally Chest/Lungs: diminished bs Symmetrical chest expansion, good air entry bilaterally GI/Abdomen: soft, NTND, good bowel sounds, no guarding or rebound /Bladder: no suprapubic tenderness, no CVA or paraspinal tenderness Extermity/Skin: +no noted edema, no obvious rash MSK: FROM x 4 Neuro: CN 2-12 grossly intact, no new focal deficits Psych: calm - Constitutional Vitals: Temp Pulse Resp BP Pulse Ox 98.4 F 91 H 19 136/89 95 09/17/18 03:23 09/17/18 03:23 09/17/18 03:23 09/17/18 03:23 09/17/18 03:23 Plan Activity: advance as tolerated, fall precautions Diet: low salt Special Instructions: restrict fluid intake to (1200CC/DAY), record daily BP diary, smoking cessation Follow up with: MONTY ALFONSO JR, MD [Primary Care Provider] - 3-5 Days DEION CHAN MD [Staff Physician] - 7 Days MICHAEL LA MD [Staff Physician] - 7 Days Prescriptions: Spironolactone [Aldactone] 25 mg PO QDAY #30 tablet Aspirin [Aspirin BABY CHEW TAB] 81 mg PO QDAY #30 tab.chew Docusate Sodium [Colace CAP] 100 mg PO DAILY #30 capsule Carvedilol [Coreg] 6.25 mg PO BID #60 tablet Furosemide [Lasix TAB] 40 mg PO BID #60 tablet Prednisone [predniSONE 5 mg (6-Day Pack, 21 Tabs)] 5 mg PO .TAPER #1 tab.ds.pk ALBUTEROL Inhaler (OR & NICU) [ProAir HFA Inhaler] 2 puff IH QID PRN #25 inh PRN Reason: Shortness Of Breath wheezing Lisinopril [Zestril TAB] 5 mg PO QDAY #30 tablet
[2018-09-17 11:18] VITALS: BP 131/75
[2018-09-17] MEDS: MUCINEX ER PO SCH (11:28)
[2018-09-17] MEDS: ALDACTONE PO SCH (11:28)
[2018-09-17] MEDS: ZESTRIL PO SCH (11:29)
[2018-09-17] MEDS: COREG PO SCH (11:29)
[2018-09-17] MEDS: BABY ASPIRIN PO SCH (11:29)
[2018-09-17] MEDS: COLACE PO SCH (11:29)
[2018-09-17] MEDS: SODIUM CHLORIDE FLUSH SYRINGE 10 ML IV SCH (11:30)
[2018-09-17] MEDS: LEVAQUIN PO SCH (11:30)
[2018-09-17] MEDS: PULMICORT IH SCH (13:17)
[2018-09-17] MEDS: DUONEB *Not for PRN Use IH SCH (13:17)
[2018-09-17] MEDS ORDERED: LASIX PO SCH (18:00)
--- NOTE | 2018-09-17 21:41 | Treadmill Report ---
INDICATION: Cardiomyopathy. ORDERING PHYSICIAN: Jorge Castellanos MD FINDINGS: The left ventricular cavity is severely dilated. There is severe global left ventricular hypokinesis and left ventricular ejection fraction is measured at 21%. There is patchy uptake noted in the left ventricle on both rest and stress imaging. There is, however, no scintigraphic evidence of myocardial ischemia. IMPRESSION: No scintigraphic evidence of myocardial ischemia. CONCLUSION: 1. Severely dilated and hypokinetic left ventricle with an ejection fraction measured at 21%. 2. Findings are suggestive of underlying nonischemic cardiomyopathy. JOB# [id number] AMY/RADHA
== END 2018-09-17 13:16 | disposition home or self-care (01) | DRG 291 ==
LOC: ED 02:31 → SUATTDRO 02:31 → 4A 05:44
PROVIDERS: ADMIT Internal Medicine; ATTEND Internal Medicine
PROC: 4A033R1 Measurement of Arterial Saturation, Peripheral, Percutaneous Approach (ICD-10-PCS; principal; 2018-09-15)
DX: I11.0 Hypertensive heart disease with heart failure (principal); J18.1 Lobar pneumonia, unspecified organism; J44.1 Chronic obstructive pulmonary disease with (acute) exacerbation; J90 Pleural effusion, not elsewhere classified; J44.0 Chronic obstructive pulmonary disease with (acute) lower respiratory infection; I42.0 Dilated cardiomyopathy; F17.200 Nicotine dependence, unspecified, uncomplicated; D64.9 Anemia, unspecified; I50.23 Acute on chronic systolic (congestive) heart failure; Z87.01 Personal history of pneumonia (recurrent); Z71.6 Tobacco abuse counseling
CPT/HCPCS: 36415; 36600; 71045; 71046; 71275; 76604; 78452; 78582; 80048; 82803; 82962; 83880; 84484; 85025; 85379; 85610; 93005; 93010; 93017; 93306; 93320; 93325; 94640; 94760; 99406; G0378; A9502; A9540; A9558; C8928; J1650; J1940; J1956; J2260; J2785; J2920; J7040; Q9957; Q9967

== ENCOUNTER 2018-12-23 11:38 | Outpatient (CLI) | payer OTHER ==
--- NOTE | 2018-12-23 12:50 | XRay Report ---
LEFT HIP, 2 VIEWS INDICATION: M16.120 unliateral promary ostearthritis,left hip/M25.552) PAIN I. COMPARISON: None. IMPRESSION: Severe end-stage osteoarthritis is identified at the left hip. There is complete or near complete loss of the left hip joint space. Extensive articular surface sclerosis and subchondral cys t formation is identified. Osteonecrosis of the superior temporal head is difficult to exclude. No fe moral head fragmentation or collapse is appreciated. There is no obvious acute fracture. The soft tis sues are unremarkable. Signer Name: Rickie Sweeney Jr, MD Signed: 12/23/2018 12:45 PM Workstation Name: [id number]
== END 2018-12-23 11:39 | disposition home or self-care (01) ==
LOC: XRAY 11:38
PROVIDERS: ATTEND Orthopaedic Surgery
DX: M16.12 Unilateral primary osteoarthritis, left hip (principal); M25.552 Pain in left hip; M79.605 Pain in left leg

== ENCOUNTER 2018-12-30 08:36 | Inpatient (IN) | payer OTHER ==
[2018-12-28 15:04] LABS: Hematocrit 36.8 % (35.5-45.6); Hemoglobin 12.7 gm/dl (11.8-15.2); Mean Corpuscular HGB Conc 35 % (32-34); Mean Corpuscular Volume 80 fl (84-94); Platelet Count 330 K/mm3 (140-440); Red Blood Count 4.62 M/mm3 (3.65-5.03)
[2018-12-28 15:07] LABS: Red Cell Distribution Width 20.1 % (13.2-15.2)
[2018-12-28 15:19] LABS: Alanine Aminotransferase 9 units/L (7-56); BUN/Creatinine Ratio 18; Blood Urea Nitrogen 18 mg/dL (9-20); Calcium 8.8 mg/dL (8.4-10.2); Hemolysis Index 12
--- NOTE | 2018-12-28 15:51 | Anesthesia Consultation ---
Anesthesia Consult and Med Hx Date of service: 12/28/18 - Airway Anesthetic Teeth Evaluation: Partials ROM Head & Neck: Adequate Mental/Hyoid Distance: Adequate Mallampati Class: Class I Intubation Access Assessment: Good - Pulmonary Exam CTA: Yes - Cardiac Exam Cardiac Exam: RRR - Pre-Operative Health Status ASA Pre-Surgery Classification: ASA3 Proposed Anesthetic Plan: General, Spinal Nerve Block: adductor - Pulmonary Hx Smoking: Yes (1/2 PPD X 30 YRS) COPD: Yes (NO MEDS) Hx Pneumonia: Yes (08/2018- RESOLVED) Hx Sleep Apnea: No (MARKIE PRE SCREEN HIGH RISK) - Cardiovascular System Hx Hypertension: Yes (X 3 MONTHS) - Central Nervous System Hx Back Pain: Yes - Hematic Hx Anemia: Yes (PER H&P , PT DENIES) - Other Systems Hx Alcohol Use: Yes (2-3 DRINKS PER DAY) Hx Cancer: No - Additional Comments Anesthesia Medical History Comments: Hx of 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 Patient is currently asymptomatic . Clayton on chart for GA vs Spinal for Hip replacement .
[2018-12-28 15:57] LABS: Total Cells Counted 100
[2018-12-28 15:58] LABS: Anisocytosis 1+; Target Cells Few; Tear Drop Cells Few
[~2018-12-30 08:36] MED LIST: ceFAZolin/STERILE WATER 2 GM/20 ML SYRINGE IV NR
--- NOTE | 2018-12-30 10:20 | Anesthesia Day of Surgery ---
Anesthesia Day of Surgery - Day of Surgery Patient Examined: Yes Patient H&P Reviewed: Yes Patient is NPO: Yes
[2018-12-30] MEDS ORDERED: ONDANSETRON 4 MG/2 ML INJ IV PRN (10:22)
[2018-12-30] MEDS ORDERED: LACTATED RINGERS 1,000 ML IV SCH (11:00)
[2018-12-30] MEDS ORDERED: MIDAZOLAM 2 MG/2 ML INJ IV NR (11:00)
[2018-12-30] MEDS ORDERED: BUPIVACAINE/PF (0.5%) 5 MG/1 ML 30 ML VIAL INFILTRATI ONE ×2 (11:38→15:30)
[2018-12-30] MEDS ORDERED: TRANEXAMIC ACID 1,000 MG/10 ML ONE (11:39)
[2018-12-30] MEDS ORDERED: MORPHINE 10 MG/1 ML INJ ONE (11:39)
[2018-12-30] MEDS ORDERED: SODIUM CHLORIDE 0.9% 100 ML ONE ×3 (11:39→16:33)
[2018-12-30] MEDS ORDERED: KETOROLAC 30 MG/1 ML INJ ONE (11:39)
[2018-12-30] MEDS ORDERED: fentaNYL 100 MCG/2 ML INJ ONE (14:08)
[2018-12-30] MEDS ORDERED: PROPOFOL 200 MG/20 ML VIAL IV ONE ×3 (14:08)
[2018-12-30] MEDS ORDERED: LIDOCAINE MPF (2%) 20 MG/1 ML VIAL 5 ML ONE (14:09)
[2018-12-30] MEDS ORDERED: EPINEPHrine/PF (1:1,000) 1 MG/1 ML INJ ONE (14:17)
[2018-12-30] MEDS ORDERED: EPINEPHrine 30 MG/30 ML INJ IV ONE (14:19)
[2018-12-30] MEDS ORDERED: SODIUM CHLORIDE 0.9% 50 ML ONE (14:23)
[2018-12-30] MEDS ORDERED: MIDAZOLAM 2 MG/2 ML INJ ONE (15:17)
[2018-12-30] MEDS ORDERED: KETAMINE/STERILE WATER 50 MG/ML SYRINGE ONE (15:17)
[2018-12-30] MEDS ORDERED: SODIUM CHLORIDE 0.9% IRR 1,000 ML BOTTLE IR ONE (15:30)
[2018-12-30] MEDS ORDERED: MORPHINE 10 MG/1 ML INJ IM ONE (15:30)
[2018-12-30] MEDS ORDERED: KETOROLAC 30 MG/1 ML INJ IV ONE (15:30)
[2018-12-30] MEDS ORDERED: SODIUM CHLORIDE 0.9% IRRIG SOLN 2000 ML IR ONE (15:30)
[2018-12-30] MEDS ORDERED: CITRIC ACID-SOD CITRATE 500 ML IV ONE (15:31)
--- NOTE | 2018-12-30 17:22 | Procedure Note ---
Date of procedure: 12/30/18 Pre-op diagnosis: severe arthritis left hip Post-op diagnosis: same Procedure: Left total hip replacement Procedure The patient was brought to the OR and placed in the OR table he was requested to sit upright at which point the spinal anesthesia was induced the patient was turned into the right lateral decubitus position care was taken to protect the bony areas and a axillary roll was used and the left axilla. Left hip and thigh were then prepped and draped in the usual sterile manner. A timeout procedure was done to identify the patient and the correct operative site. Using the lateral approach incision was taken down through skin and subcutaneous the fascia oskar was incised A Charnley retractor was placed deep within the wound care was taken to enter the anterior hip capsule by the vastus lateralis and the gluteus medius tendons in the knee was flexed and internally rotated which brought us upon the anterior portion of the hip joint using a small broach and osteotomy was performed on the femoral neck approximately 2 cm to centimeters proximal to the lesser trochanter. Using Linares retractors the the acetabular structures were evaluated the patient was noted to have some severe changes within the acetabulum reaming was begun starting with a 51 mm diameter and advancing up to a 61 mm cup was taken to the observed bleeding bone within the acetabulum nicely 62 mm cup was inserted care was taken to maintain the proper version that being 45 abduction and 20 of anteversion and a small screw was used to stabilize this acetabular component next attention was turned to the proximal femur using a cookie cutter and the proximal femoral canal was entered this was then reamed and broached to a #3 stem And the hip joint was then reduced using a 30 neutral neck and a 32 mm head hip was reduced taken through a range of motion and was found to be stable Trial component was removed and the hip joint was then copiously irrigated the final components were inserted that being a #3 femoral stem with a 32 mm head again the hip joint was reduced and was taken through a range of motion and found stable. He was closed in a standard routine fashion. Dressings were applied the patient tolerated the procedure and there were no complications he was taken to postanesthesia recovery stable Anesthesia: spinal Surgeon: TIGRE MARTINEZ Competitive Athlete: SONJA ACOSTA Estimated blood loss: other (200 mL) Pathology: list (left femoral head and neck) Specimen disposition: to lab Condition: stable Disposition: PACU
--- NOTE | 2018-12-30 17:57 | XRay Report ---
CLINICAL DATA: Postoperative examination TECHNICAL DATA: AP supine imaging of the left hip FINDINGS: There is a small amount of gas at the surgical site. A hip replacement is seen. This is well aligned with [place] bony structures. There are no postprocedural complications detected. IMPRESSION: Well-positioned total hip replacement. Signer Name: Joe Sanchez MD Signed: 12/30/2018 5:53 PM Workstation Name: [id number]
--- NOTE | 2018-12-30 19:46 | Post Anesthesia Evaluation ---
- Post Anesthesia Evaluation Patient Participated: Yes Airway Patent: Yes Stable Respiratory Function: Yes Nausea/Vomiting: No Temp > 96.8F: Yes Pain Manageable: Yes Adequeate Hydration: Yes Anesthesia Complications: No Block Receding Appropriately: Not Applicable Patient on Ventilator: No
[2018-12-30] MEDS: HYDROmorphone 1 MG/1 ML INJ IV PRN ×2 (20:50→23:56)
[2018-12-30] MEDS: oxyCODONE /ACETAMINOPHEN 5-325MG TAB PO PRN (22:24)
[2018-12-30] MEDS: DOCUSATE SODIUM 100 MG CAP PO SCH (23:13)
[2018-12-31] MEDS: MORPHINE 4 MG/1 ML INJ IV PRN ×4 (03:02→23:34)
[2018-12-31] MEDS: oxyCODONE /ACETAMINOPHEN 5-325MG TAB PO PRN ×2 (04:59→12:32)
[2018-12-31 06:47] LABS: Hematocrit 31.2 % (35.5-45.6)
[2018-12-31] MEDS: KETOROLAC 30 MG/1 ML INJ IV PRN ×2 (09:54→19:36)
[2018-12-31] MEDS: DOCUSATE SODIUM 100 MG CAP PO SCH ×2 (09:55→22:14)
[2018-12-31] MEDS: ENOXAPARIN 40 MG/0.4 ML INJ SUB-Q SCH (09:55)
[2018-12-31] MEDS ORDERED: KETOROLAC 30 MG/1 ML INJ IV PRN (10:00)
[2018-12-31] MEDS: LISINOPRIL 5 MG TAB PO SCH (10:58)
[2018-12-31] MEDS: SPIRONOLACTONE 25 MG TAB PO SCH (10:58)
[2018-12-31] MEDS: FUROSEMIDE 40 MG TAB PO SCH ×2 (10:59→22:14)
[2018-12-31] MEDS: carvediloL 6.25 MG TAB PO SCH ×2 (10:59→22:14)
--- NOTE | 2018-12-31 12:41 | Progress Note ---
Assessment and Plan s/p left THR post op day #1 begin PT continue observation Subjective Date of service: 12/31/18 Interval history: c/o left hip pain Objective Vital signs: Vital Signs - 12hr 12/31/18 12/31/18 12/31/18 03:02 04:46 05:59 Temperature 98.1 F Pulse Rate 93 H Respiratory 17 20 17 Rate Blood Pressure 141/72 Blood Pressure [Left] O2 Sat by Pulse 99 Oximetry 12/31/18 12/31/18 12/31/18 07:00 07:28 07:30 Temperature 99.6 F Pulse Rate 96 H Respiratory 17 20 17 Rate Blood Pressure 144/76 Blood Pressure [Left] O2 Sat by Pulse 97 Oximetry 12/31/18 12/31/18 12/31/18 09:10 10:58 10:59 Temperature 99.6 F Pulse Rate 95 H 95 H 95 H Respiratory 20 Rate Blood Pressure 144/76 144/76 Blood Pressure 144/76 [Left] O2 Sat by Pulse 96 Oximetry Incision: healing, clean and dry Weight bearing status: as tolerated - Labs CBC & BMP: 12/31/18 06:30 12/28/18 14:20 Labs: Abnormal lab results 12/31/18 Range/Units 06:30 Hgb 11.0 L (11.8-15.2) gm/dl Hct 31.2 L (35.5-45.6) %
--- NOTE | 2018-12-31 12:48 | Consultation ---
History of Present Illness - Reason for Consult Consult date: 12/31/18 management of hypertension Requesting physician: TIGRE MANDUJANO - History of Present Illness 58-year-old -[place] male with past medical history significant for hypertension, CHF had left hip arthroplasty and [facility] consulted for medical management. Patient denied any SOB, chest pain. No complaints except some pain at the site of surgery. Past History Past Medical History: heart failure, hypertension Past Surgical History: No surgical history Social history: smoking (10-12 cigarettes a day), alcohol abuse (6 packs/week), full code. denies: prescription drug abuse, IV drug use Family history: no significant family history Medications and Allergies Allergies Allergy/AdvReac Type Severity Reaction Status Date / Time No Known Allergies Allergy Verified 12/27/18 15:59 Home Medications Medication Instructions Recorded Confirmed Last Taken Type Carvedilol [Coreg] 6.25 mg PO BID #60 tablet 09/17/18 12/27/18 12/30/18 06:00 Rx Furosemide [Lasix TAB] 40 mg PO BID #60 tablet 09/17/18 12/27/18 12/29/18 09:00 Rx Lisinopril [Zestril TAB] 5 mg PO QDAY #30 tablet 09/17/18 12/27/18 12/30/18 06:00 Rx Spironolactone [Aldactone] 25 mg PO QDAY #30 tablet 09/17/18 12/27/18 12/29/18 09:[address] [Tor[place] Dr] 75 mg PO BID 12/27/18 12/27/18 12/29/18 09:00 History Docusate Sodium [Colace CAP] 100 mg PO PRN PRN 12/27/18 12/27/18 12/29/18 09:00 History HYDROcodone/APAP 5-325 [[place] 1 each PO Q6HR PRN 12/27/18 12/27/18 12/29/18 09:00 History 5/325] Ibuprofen [Motrin] 800 mg PO Q8HR PRN 12/27/18 12/30/18 12/23/18 18:00 History Active Meds: Active Medications Bisacodyl (Dulcolax) 10 mg IA QDAY PRN PRN Reason: Constip unreliev by MOM/or NPO Carvedilol (Coreg) 6.25 mg PO BID MARLEN Last Admin: 12/31/18 10:59 Dose: 6.25 mg Documented by: Docusate Sodium (Colace) 100 mg PO BID [facility] Last Admin: 12/31/18 09:55 Dose: 100 mg Documented by: Enoxaparin Sodium (Lovenox) 40 mg SUB-Q QDAY [facility] Last Admin: 12/31/18 09:55 Dose: 40 mg Documented by: Furosemide (Lasix) 40 mg PO BID [facility] Last Admin: 12/31/18 10:59 Dose: 40 mg Documented by: Lactated Ringer's (Lactated Ringers) 1,000 mls @ 100 mls/hr IV DIRECT [facility] Last Admin: 12/30/18 10:55 Dose: 100 mls/hr Documented by: Ketorolac Tromethamine (Toradol) 15 mg IV Q6H PRN PRN Reason: Pain, Moderate (4-6) Stop: 01/05/19 09:59 Last Admin: 12/31/18 09:54 Dose: 15 mg Documented by: Lisinopril (Zestril) 5 mg PO QDAY [facility] Last Admin: 12/31/18 10:58 Dose: 5 mg Documented by: Morphine Sulfate (Morphine) 4 mg IV Q4H PRN PRN Reason: Pain , Severe (7-10) Last Admin: 12/31/18 07:00 Dose: 4 mg Documented by: Oxycodone/Acetaminophen (Percocet 5/325) 1 tab PO Q6H PRN PRN Reason: Pain, Moderate (4-6) Last Admin: 12/31/18 12:32 Dose: 1 tab Documented by: Sodium Chloride (Sodium Chloride Flush Syringe 10 Ml) 10 ml IV PRN NR Stop: 12/31/18 17:59 Spironolactone (Aldactone) 25 mg PO QDAY [facility] Last Admin: 12/31/18 10:58 Dose: 25 mg Documented by: Exam - Physical Exam Narrative exam: Not in cardiopulmonary distress. The patient appeared well nourished and normally developed. Vital signs as documented. Head exam is unremarkable. No scleral icterus . Neck is without jugular venous distension, thyromegaly, or carotid bruits. Lungs are clear to auscultation. Cardiac exam reveals regular rate and Rhythm. First and second heart sounds normal. No murmurs, rubs or gallops. Abdominal exam reveals normal bowel sounds, no masses, no organomegaly and no aortic enlargement. Extremities are nonedematous and both femoral and pedal pulses are normal. REAL ESTATE LEGAL ASSISTANT: Alert and oriented 3. No focal weakness. - Constitutional Vitals: Temp Pulse Resp BP Pulse Ox 99.6 F 95 H 20 144/76 96 12/31/18 09:10 12/31/18 10:59 12/31/18 09:10 12/31/18 10:59 12/31/18 09:10 Results - Labs CBC & Chem 7: 12/31/18 06:30 12/28/18 14:20 Labs: Abnormal lab results 12/31/18 Range/Units 06:30 Hgb 11.0 L (11.8-15.2) gm/dl Hct 31.2 L (35.5-45.6) % Assessment and Plan History of hypertension - Resume home medications - Continue to monitor History of CHF with ejection fraction of 20-25% - Patient is euvolemic, no symptoms - Patient said his primary care physician did echo and told him is getting better. - Resume home medications Status post left hip replacement - Management per primary/Dr. Mandujano DVT prophylaxis -Per primary Disposition -Per primary
[2019-01-01] MEDS: KETOROLAC 30 MG/1 ML INJ IV PRN ×2 (06:37→15:20)
[2019-01-01] MEDS: DOCUSATE SODIUM 100 MG CAP PO SCH (08:07)
[2019-01-01] MEDS: SPIRONOLACTONE 25 MG TAB PO SCH (08:07)
[2019-01-01] MEDS: LISINOPRIL 5 MG TAB PO SCH (08:07)
[2019-01-01] MEDS: FUROSEMIDE 40 MG TAB PO SCH (08:07)
[2019-01-01] MEDS: carvediloL 6.25 MG TAB PO SCH (08:08)
[2019-01-01] MEDS: ENOXAPARIN 40 MG/0.4 ML INJ SUB-Q SCH (08:09)
--- NOTE | 2019-01-01 08:46 | Progress Note ---
Assessment and Plan Assessment and plan: History of hypertension - Controlled - Resume home medications - Continue to monitor History of CHF with ejection fraction of 20-25% - Patient is euvolemic, no symptoms - Patient said his primary care physician did echo and told him is getting better. - Resumed home medications Status post left hip replacement - Management per primary/Dr. Mandujano DVT prophylaxis -Per primary Disposition - Patient is medically stable. History Interval history: Patient was seen and evaluated this morning, patient didn't have new complaints. He is doing well. Hospitalist Physical - Physical exam Narrative exam: Not in cardiopulmonary distress. The patient appeared well nourished and normally developed. Vital signs as documented. Head exam is unremarkable. No scleral icterus . Neck is without jugular venous distension, thyromegaly, or carotid bruits. Lungs are clear to auscultation. Cardiac exam reveals regular rate and Rhythm. First and second heart sounds normal. No murmurs, rubs or gallops. Abdominal exam reveals normal bowel sounds, no masses, no organomegaly and no aortic enlargement. Extremities are nonedematous and both femoral and pedal pulses are normal. FLOATING OPERATOR: Alert and oriented 3. No focal weakness. - Constitutional Vitals: Temp Pulse Resp BP Pulse Ox 98.3 F 105 H 20 137/85 96 01/01/19 07:23 01/01/19 08:08 01/01/19 07:23 01/01/19 08:08 01/01/19 07:23 Results - Labs CBC & Chem 7: 12/31/18 06:30 12/28/18 14:20 Labs: Laboratory Last Values WBC 5.3 K/mm3 (4.5-11.0) 12/28/18 14:20 RBC 4.62 M/mm3 (3.65-5.03) 12/28/18 14:20 Hgb 11.0 gm/dl (11.8-15.2) L 12/31/18 06:30 Hct 31.2 % (35.5-45.6) L 12/31/18 06:30 MCV 80 fl (84-94) L 12/28/18 14:20 MCH 28 pg (28-32) 12/28/18 14:20 MCHC 35 % (32-34) H 12/28/18 14:20 RDW 20.1 % (13.2-15.2) H 12/28/18 14:20 Plt Count 330 K/mm3 (140-440) 12/28/18 14:20 Add Manual Diff Complete 12/28/18 14:20 Total Counted 100 12/28/18 14:20 Seg Neuts % (Manual) 49 % (40.0-70.0) 12/28/18 14:20 Band Neutrophils % 0 % 12/28/18 14:20 Lymphocytes % (Manual) 35.0 % (13.4-35.0) 12/28/18 14:20 Reactive Lymphs % (Man) 0 % 12/28/18 14:20 Monocytes % (Manual) 8.0 % (0.0-7.3) H 12/28/18 14:20 Eosinophils % (Manual) 6.0 % (0.0-4.3) H 12/28/18 14:20 Basophils % (Manual) 2.0 % (0.0-1.8) H 12/28/18 14:20 Metamyelocytes % 0 % 12/28/18 14:20 Myelocytes % 0 % 12/28/18 14:20 Promyelocytes % 0 % 12/28/18 14:20 Blast Cells % 0 % 12/28/18 14:20 Nucleated RBC % Not Reportable 12/28/18 14:20 Seg Neutrophils # Man 2.5 K/mm3 (1.8-7.7) 12/28/18 14:20 Band Neutrophils # 0.0 K/mm3 12/28/18 14:20 Lymphocytes # (Manual) 1.9 K/mm3 (1.2-5.4) 12/28/18 14:20 Abs React Lymphs (Man) 0.0 K/mm3 12/28/18 14:20 Monocytes # (Manual) 0.4 K/mm3 (0.0-0.8) 12/28/18 14:20 Eosinophils # (Manual) 0.3 K/mm3 (0.0-0.4) 12/28/18 14:20 Basophils # (Manual) 0.1 K/mm3 (0.0-0.1) 12/28/18 14:20 Metamyelocytes # 0.0 K/mm3 12/28/18 14:20 Myelocytes # 0.0 K/mm3 12/28/18 14:20 Promyelocytes # 0.0 K/mm3 12/28/18 14:20 Blast Cells # 0.0 K/mm3 12/28/18 14:20 WBC Morphology Not Reportable 12/28/18 14:20 Hypersegmented Neuts Not Reportable 12/28/18 14:20 Hyposegmented Neuts Not Reportable 12/28/18 14:20 Hypogranular Neuts Not Reportable 12/28/18 14:20 Smudge Cells Not Reportable 12/28/18 14:20 Toxic Granulation Not Reportable 12/28/18 14:20 Toxic Vacuolation Not Reportable 12/28/18 14:20 Dohle Bodies Not Reportable 12/28/18 14:20 Pelger-Huet Anomaly Not Reportable 12/28/18 14:20 Leora Rods Not Reportable 12/28/18 14:20 Platelet Estimate Appears normal 12/28/18 14:20 Clumped Platelets Not Reportable 12/28/18 14:20 Plt Clumps, EDTA Not Reportable 12/28/18 14:20 Large Platelets Not Reportable 12/28/18 14:20 Giant Platelets Not Reportable 12/28/18 14:20 Platelet Satelliting Not Reportable 12/28/18 14:20 Plt Morphology Comment Not Reportable 12/28/18 14:20 RBC Morphology Not Reportable 12/28/18 14:20 Dimorphic RBCs Not Reportable 12/28/18 14:20 Polychromasia Not Reportable 12/28/18 14:20 Hypochromasia Not Reportable 12/28/18 14:20 Poikilocytosis Not Reportable 12/28/18 14:20 Anisocytosis 1+ 12/28/18 14:20 Microcytosis Not Reportable 12/28/18 14:20 Macrocytosis Not Reportable 12/28/18 14:20 Spherocytes Not Reportable 12/28/18 14:20 Pappenheimer Bodies Not Reportable 12/28/18 14:20 Sickle Cells Not Reportable 12/28/18 14:20 Target Cells Few 12/28/18 14:20 Tear Drop Cells Few 12/28/18 14:20 Ovalocytes Not Reportable 12/28/18 14:20 Helmet Cells Not Reportable 12/28/18 14:20 White-Clarks Bodies Not Reportable 12/28/18 14:20 [place] Rings Not Reportable 12/28/18 14:20 Green[place] Cells Not Reportable 12/28/18 14:20 Bite Cells Not Reportable 12/28/18 14:20 Crenated Cell Not Reportable 12/28/18 14:20 Elliptocytes Not Reportable 12/28/18 14:20 Acanthocytes (Spur) Not Reportable 12/28/18 14:20 Rouleaux Not Reportable 12/28/18 14:20 Hemoglobin C Crystals Not Reportable 12/28/18 14:20 Schistocytes Not Reportable 12/28/18 14:20 Malaria parasites Not Reportable 12/28/18 14:20 Ajay Bodies Not Reportable 12/28/18 14:20 Hem Pathologist Commnt No 12/28/18 14:20 Sodium 140 mmol/L (137-145) 12/28/18 14:20 Potassium 4.1 mmol/L (3.6-5.0) 12/28/18 14:20 Chloride 105.2 mmol/L (98-107) 12/28/18 14:20 Carbon Dioxide 25 mmol/L (22-30) 12/28/18 14:20 Anion Gap 14 mmol/L 12/28/18 14:20 BUN 18 mg/dL (9-20) 12/28/18 14:20 Creatinine 1.0 mg/dL (0.8-1.5) 12/28/18 14:20 Estimated GFR > 60 ml/min 12/28/18 14:20 BUN/Creatinine Ratio 18 % 12/28/18 14:20 Glucose 96 mg/dL (75-100) 12/28/18 14:20 Calcium 8.8 mg/dL (8.4-10.2) 12/28/18 14:20 Total Bilirubin 0.30 mg/dL (0.1-1.2) 12/28/18 14:20 AST 14 units/L (5-40) 12/28/18 14:20 ALT 9 units/L (7-56) 12/28/18 14:20 Alkaline Phosphatase 60 units/L (35-129) 12/28/18 14:20 Total Protein 7.3 g/dL (6.3-8.2) 12/28/18 14:20 Albumin 4.0 g/dL (3.9-5) 12/28/18 14:20 Albumin/Globulin Ratio 1.2 % 12/28/18 14:20 Blood Type AB POSITIVE 12/30/18 10:55 Antibody Screen Negative 12/30/18 10:55 Active Medications - Current Medications Current Medications: Generic Name Dose Route Start Last Admin Trade Name Freq PRN Reason Stop Dose Admin Bisacodyl 10 mg 12/30/18 17:14 Dulcolax [place] QDAY PRN Constip unreliev by MOM/or NPO Carvedilol 6.25 mg 12/31/18 11:00 01/01/19 08:08 Coreg PO 6.25 mg BID MARLEN Administration Docusate Sodium 100 mg 12/30/18 22:00 01/01/19 08:07 Colace PO 100 mg BID MARLEN Administration Enoxaparin Sodium 40 mg 12/31/18 10:00 01/01/19 08:09 Lovenox SUB-Q 40 mg QDAY MARLEN Administration Furosemide 40 mg 12/31/18 11:00 01/01/19 08:07 Lasix PO 40 mg BID MARLEN Administration Lactated Ringer's 1,000 mls @ 100 mls/hr 12/30/18 11:00 12/30/18 10:55 Lactated Ringers IV 100 mls/hr DIRECT MARLEN Administration Ketorolac Tromethamine 15 mg 12/31/18 10:00 01/01/19 06:37 Toradol IV 01/05/19 09:59 15 mg Q6H PRN Administration Pain, Moderate (4-6) Lisinopril 5 mg 12/31/18 11:00 01/01/19 08:07 Zestril PO 5 mg QDAY MARLEN Administration Morphine Sulfate 4 mg 12/30/18 17:14 12/31/18 23:34 Morphine IV 4 mg Q4H PRN Administration Pain , Severe (7-10) Oxycodone/Acetaminophen 1 tab 12/30/18 17:14 12/31/18 12:32 Percocet 5/325 PO 1 tab Q6H PRN Administration Pain, Moderate (4-6) Spironolactone 25 mg 12/31/18 11:00 01/01/19 08:07 Aldactone PO 25 mg QDAY MARLEN Administration
[2019-01-01 12:23] VITALS: BP 123/52
--- NOTE | 2019-01-03 13:41 | Discharge Summary ---
Providers - Providers Date of Admission: 12/30/18 08:55 Date of discharge: 01/01/19 Attending physician: TIGRE MARTINEZ MD 12/30/18 17:14 Consult to Case Management [CONS] Routine Services Needed at Discharge: Home Health Services DME Equipment Physical Therapy Notified:: magdalena notified 12/31/18 08:48 Physical Therapy Evaluation and Treat [CONS] Urgent Comment: Reason For Exam: S/P hip surgery 12/31/18 12:32 Consult to Physician [CONS] Routine Comment: Consulting Provider: ALEIDA LOYOLA Physician Instructions: Reason For Exam: postoperative evaluation and assessment Primary care physician: MONTY ALFONSO Hospitalization Reason for admission: severe left hip pain Condition: Stable Procedures: Left total hip replacement Hospital course: 58-year-old male who came in complaining of persistent left hip pain and stiffness for years plain x-rays taken outpatient-hernandez reveal severe osteoarthritis left hip patient was admitted to the hospital and was taken to the operating room where a left total hip replacement was done postoperatively he was seen by physical therapy where he is given instructions on gait weightbearing and range of motion exercises. Space case management was also consulted for home physical therapy and DME's supplies Disposition: [id number] HOME UNDER HOME [facility] Core Measure Documentation - Palliative Care Palliative Care/ Comfort Measures: Not Applicable - Core Measures Any of the following diagnoses?: none - VTE Discharge Requirements Deep Vein Thrombosis/Pulmonary Embolism Present on Admission: No - Acute [place] Discharge Requirements Aspirin at discharge: No Reason for no aspirin on DC: Medical contraindication - Heart Failure Discharge Requirements GEOVANI/ARB for LVSD if EF <40%: No Reason for no GEOVANI/ARB: Medical contraindication - Stroke Discharge Requirements Statin for LDL = or >70 mg/dl on DC: No Reason for no statin on DC: Medical Contraindication Exam - Constitutional Vitals: Temp Pulse Resp BP Pulse Ox 97.0 F L 94 H 20 123/52 99 01/01/19 12:00 01/01/19 12:00 01/01/19 12:00 01/01/19 12:00 01/01/19 12:00 General appearance: Present: no acute distress, well-nourished - EENT Eyes: Present: PERRL ENT: hearing intact, clear oral mucosa - Neck Neck: Present: supple, normal ROM - Respiratory Respiratory effort: normal Respiratory: bilateral: CTA - Cardiovascular Heart Sounds: Present: S1 & S2. Absent: rub, click - Extremities Extremities: pulses symmetrical, No edema Peripheral Pulses: within normal limits - Abdominal General gastrointestinal: Present: soft, non-tender, non-distended, normal bowel sounds Male genitourinary: Present: normal - Integumentary Integumentary: Present: clear, warm, dry - Musculoskeletal Musculoskeletal: gait normal, strength equal bilaterally - Psychiatric Psychiatric: appropriate mood/affect, intact judgment & insight - Neurologic Neurologic: CNII-XII intact, moves all extremities Plan Activity: advance as tolerated Weight Bearing Status: Weight Bear as Tolerated Diet: regular Wound: keep clean and dry, per your surgeon's advice Special Instructions: physical therapy, occupational therapy Durable Medical Equipment Needed Upon Discharge: Walker-Standard, Bedside Commode Follow up with: MONTY ALFONSO JR, MD [Primary Care Provider] - 7 Days Prescriptions: Oxycodone HCl/Acetaminophen [Percocet 7.5/325 mg] 1 each PO Q6HR PRN #24 tablet PRN Reason: Pain
== END 2019-01-01 18:29 | disposition home health service (06) | DRG 470 ==
LOC: 3A 08:55 → 3B-SURG 17:58
PROVIDERS: ADMIT Orthopaedic Surgery; ATTEND Orthopaedic Surgery
PROC: 0SRB0JZ Replacement of Left Hip Joint with Synthetic Substitute, Open Approach (ICD-10-PCS; principal; 2018-12-30)
DX: M16.12 Unilateral primary osteoarthritis, left hip (principal); G47.30 Sleep apnea, unspecified; F17.210 Nicotine dependence, cigarettes, uncomplicated; I11.0 Hypertensive heart disease with heart failure; F10.10 Alcohol abuse, uncomplicated; Y90.9 Presence of alcohol in blood, level not specified; J44.9 Chronic obstructive pulmonary disease, unspecified; I50.9 Heart failure, unspecified; Z79.899 Other long term (current) drug therapy
CPT/HCPCS: 36415; 80053; 85007; 85014; 85018; 85025; 86850; 86900; 86901; 88304; 88305; 88311; G0378; A4217; C1776; J0171; J1170; J1650; J1885; J2250; J2270; J2405; J2704; J3010; J7120

== ENCOUNTER 2019-04-07 15:11 | Outpatient (CLI) | payer OTHER ==
--- NOTE | 2019-04-07 15:59 | XRay Report ---
LEFT HIP AND PELVIS 2 VIEWS INDICATION: M16.12 UNILATERAL PRIMARY OSTEOARTHRITIS LEFT HIP. COMPARISON: 12/30/2018. FINDINGS: Left hip arthroplasty hardware is in satisfactory position. No periprosthetic fracture is seen. There are lucencies within the bone adjacent to the acetabular component. There is moderate to advanced osteoarthrosis at the right hip. IMPRESSION: 1. Periprosthetic lucencies adjacent to the acetabular component of the left hip arthroplasty could b e seen in the setting of osteolysis. No fracture is seen. Signer Name: Eddie Ellison MD Signed: 04/07/2019 3:55 PM Workstation Name: [id number]
== END 2019-04-07 15:12 | disposition home or self-care (01) ==
LOC: XRAY 15:11
PROVIDERS: ATTEND Orthopaedic Surgery
DX: M16.12 Unilateral primary osteoarthritis, left hip (principal); Z98.890 Other specified postprocedural states

== ENCOUNTER 2019-07-26 16:01 | Outpatient (CLI) | payer OTHER ==
--- NOTE | 2019-07-26 16:34 | XRay Report ---
LEFT HIP 2 VIEWS INDICATION: UNILATERAL PRIMARY OSTEOARTHRITIS, LEFT HIP. COMPARISON: 04/07/2019 IMPRESSION: Left hip replacement is unchanged in position and alignment since the previous exam. Nor mal articulation at the joint. Lucency surrounding the acetabular component is again seen and worriso me for loosening. The femoral component is unremarkable. No acute osseous findings or soft tissue fin dings are demonstrated. No change since 04/07/2019. Signer Name: Rickie Sweeney Jr, MD Signed: 07/26/2019 4:29 PM Workstation Name: [id number]
== END 2019-07-26 16:02 | disposition home or self-care (01) ==
LOC: XRAY 16:01
PROVIDERS: ATTEND Orthopaedic Surgery
DX: M16.12 Unilateral primary osteoarthritis, left hip (principal); Z96.642 Presence of left artificial hip joint

== ENCOUNTER 2020-01-02 15:32 | Outpatient (CLI) | payer OTHER | END 2020-01-02 15:33 | disposition home or self-care (01) | LOC: PF 15:32 | PROVIDERS: ATTEND Internal Medicine | DX: Z02.71 Encounter for disability determination (principal) | CPT/HCPCS: 94010 ==

== ENCOUNTER 2020-07-23 16:58 | Emergency (ER) | payer OTHER ==
[2020-07-23] MEDS ORDERED: OXYMETAZOLINE 0.05% NASAL SPRAY NS ONE (17:39)
--- NOTE | 2020-07-23 17:42 | Emergency Department Report ---
HPI - General Chief Complaint: Nosebleed Time Seen by Provider: 07/23/20 17:36 - HPI HPI: This is a 59-year-old male who presents to the emergency department with a 2.5- hour history of nasal bleeding. At the time my examination it appears that there is blood in both nasal cavities but he says that the bleeding mostly is coming from the right side. He denies this ever happening before. He presents with a moderate amount of blood and clots. Patient says that he has some nonspecific dizziness/lightheadedness, but denies any headache, chest pain, sh ortness of breath, vision change, slurred speech, numbness or paresthesias. He has a past medical history of COPD not oxygen dependent, CHF. He has not taken anything for symptoms prior to presentation. ED Past Medical Hx - Past Medical History Previous Medical History?: Yes Hx Hypertension: No Hx Heart Attack/AMI: No Hx Congestive Heart Failure: No Hx Diabetes: No Hx Deep Vein Thrombosis: No Hx Pulmonary Embolism: No Hx Liver Disease: No Hx Renal Disease: No Hx Sickle Cell Disease: No Hx Seizures: No Hx Kidney Stones: No Hx Asthma: No Hx COPD: Yes (NO MEDS) Hx Tuberculosis: No Hx Dementia: No Hx HIV: No Additional medical history: Pneumonia - Surgical History Hx Coronary Stent: No Hx Open Heart Surgery: No Hx Pacemaker: No Hx Internal Defibrillator: No Hx Cholecystectomy: No Hx Appendectomy: No Hx Breast Surgery: No - Social History Smoking Status: Current Every Day Smoker - Medications Home Medications: Home Medications Medication Instructions Recorded Confirmed Last Taken Type Furosemide [Lasix TAB] 40 mg PO BID #60 tablet 09/17/18 12/27/18 12/29/18 09:00 Rx carvediloL [Coreg] 6.25 mg PO BID #60 tablet 09/17/18 12/27/18 12/30/18 06:00 Rx lisinopriL [Zestril TAB] 5 mg PO QDAY #30 tablet 09/17/18 12/27/18 12/30/18 06:[address] [Voltaren Dr] 75 mg PO BID 12/27/18 12/27/18 12/29/18 09:00 His tory Docusate Sodium [Colace CAP] 100 mg PO PRN PRN 12/27/18 12/27/18 12/29/18 09:00 History HYDROcodone/APAP 5-325 [[place] 1 each PO Q6HR PRN 12/27/18 12/27/18 12/29/18 09:00 History 5/325] Ibuprofen [Motrin] 800 mg PO Q8HR PRN 12/27/18 12/30/18 12/23/18 18:00 History Oxycodone HCl/Acetaminophen 1 each PO Q6HR PRN #24 tablet 01/01/19 Unknown Rx [Percocet 7.5/325 mg] Spironolactone [Aldactone] 25 mg PO QDAY tablet 01/01/19 Unknown Rx Amoxicillin/Potassium Clav 1 each PO BID #10 tablet 07/23/20 Unknown Rx [Augmentin 875-125 Tablet] ED Review of Systems ROS: Stated complaint: NOSE BLEED Other details as noted in HPI Comment: All other systems reviewed and negative Constitutional: denies: chills, fever Eyes: denies: eye pain, vision change ENT: epistaxis. denies: ear pain Respiratory: denies: cough, shortness of breath Cardiovascular: denies: chest pain, palpitations Gastrointestinal: denies: abdominal pain, vomiting Genitourinary: denies: dysuria, discharge Musculoskeletal: denies: back pain, arthralgia Skin: denies: rash, lesions Neurological: other (dizzy/lightheaded). denies: headache, weakness, numbness, paresthesias Physical Exam - Physical Exam Vital Signs: Vital Signs 07/23/20 17:09 Temperature 97.9 F Pulse Rate 110 H Respiratory 20 Rate Blood Pressure 147/98 [Right] O2 Sat by Pulse 97 Oximetry Physical Exam: GENERAL: The patient is well-developed well-nourished. HENT: Normocephalic. Atraumatic. Patient has moist mucous membranes. There is a moderate amount of venous bleeding from the bilateral nasal passages with right greater than left. Some blood and clot seen in the posterior oropharynx. EYES: Extraocular motions are intact. NECK: Supple. Trachea is midline. CHEST/LUNGS: Clear to auscultation. There is no respiratory distress noted. HEART/CARDIOVASCULAR: Regular. There is no tachycardia. There is no murmur. ABDOMEN: Abdomen is soft, nontender. Patient has normal bowel sounds. There is no abdominal distention. SKIN: Skin is warm and dry. NEURO: The patient is awake, alert, and oriented. The patient is cooperative. The patient has no focal neurologic deficits. Normal speech. MUSCULOSKELETAL: There is no tenderness or deformity. There is no limitation range of motion. ED Course Vital Signs 07/23/20 17:09 Temperature 97.9 F Pulse Rate 110 H Respiratory 20 Rate Blood Pressure 147/98 [Right] O2 Sat by Pulse 97 Oximetry - Reevaluation(s) Reevaluation #1: 07/23/20 18:00 The patient had an unresponsive episode in which he became very diaphoretic and his head slumped down. Patient also vomited up a large amount of blood and clots. Vital signs were still reassuring at the time of this event. I was able to wake the patient up with some tactile and verbal stimuli. Further labs have been ordered including a metabolic panel, troponin and an EKG was also ordered. - Procedure Description Procedures done: Procedure: Nasal packing with rapid Rhino x2. Initially, a 7.5 cm anterior/posterior rapid Rhino was inserted into the right nasal passage. The balloon was filled with 7 cc of sterile saline. This improved the epistaxis but there was still some oozing of blood seen coming from the right nasal passage. About 15 minutes later the rapid Rhino was removed. Another rapid Rhino, 7.5 cm anterior/posterior, was soaked in TXA and once again placed into the right nasal passage. The balloon was once again filled with 7 cc of sterile saline. The tail of the rapid Rhino has been taped to his face. No current bleeding seen at this time. ED Medical Decision Making - Lab Data Result diagrams: 07/23/20 17:47 07/23/20 18:07 Lab Results 07/23/20 07/23/20 07/23/20 Range/Units 17:47 17:47 18:00 WBC 12.1 H (4.5-11.0) K/mm3 RBC 3.77 (3.65-5.03) M/mm3 Hgb 10.9 L (11.8-15.2) gm/dl Hct 31.3 L (35.5-45.6) % MCV 83 L (84-94) fl MCH 29 (28-32) pg MCHC 35 H (32-34) % RDW 17.5 H (13.2-15.2) % Plt Count 343 (140-440) K/mm3 Lymph % (Auto) 16.8 (13.4-35.0) % Cook % (Auto) 7.6 H (0.0-7.3) % Eos % (Auto) 2.2 (0.0-4.3) % Baso % (Auto) 0.5 (0.0-1.8) % Lymph # (Auto) 2.0 (1.2-5.4) K/mm3 Cook # (Auto) 0.9 H (0.0-0.8) K/mm3 Eos # (Auto) 0.3 (0.0-0.4) K/mm3 Baso # (Auto) 0.1 (0.0-0.1) K/mm3 Seg Neutrophils % 72.9 H (40.0-70.0) % Seg Neutrophils # 8.8 H (1.8-7.7) K/mm3 PT 13.0 (12.2-14.9) Sec. INR 0.99 (0.87-1.13) APTT 29.6 (24.2-36.6) Sec. Sodium (137-145) mmol/L Potassium (3.6-5.0) mmol/L Chloride (98-107) mmol/L Carbon Dioxide (22-30) mmol/L Anion Gap mmol/L BUN (9-20) mg/dL Creatinine (0.8-1.3) mg/dL Estimated GFR ml/min BUN/Creatinine Ratio % Glucose (75-100) mg/dL Calcium (8.4-10.2) mg/dL Total Bilirubin (0.1-1.2) mg/dL AST (5-40) units/L ALT (7-56) units/L Alkaline Phosphatase (35-129) units/L Troponin T (0.00-0.029) ng/mL Total Protein (6.3-8.2) g/dL Albumin (3.9-5) g/dL Albumin/Globulin Ratio % Blood Type AB POSITIVE Antibody Screen Negative 07/23/20 Range/Units 18:07 WBC (4.5-11.0) K/mm3 RBC (3.65-5.03) M/mm3 Hgb (11.8-15.2) gm/dl Hct (35.5-45.6) % MCV (84-94) fl MCH (28-32) pg MCHC (32-34) % RDW (13.2-15.2) % Plt Count (140-440) K/mm3 Lymph % (Auto) (13.4-35.0) % Cook % (Auto) (0.0-7.3) % Eos % (Auto) (0.0-4.3) % Baso % (Auto) (0.0-1.8) % Lymph # (Auto) (1.2-5.4) K/mm3 Cook # (Auto) (0.0-0.8) K/mm3 Eos # (Auto) (0.0-0.4) K/mm3 Baso # (Auto) (0.0-0.1) K/mm3 Seg Neutrophils % (40.0-70.0) % Seg Neutrophils # (1.8-7.7) K/mm3 PT (12.2-14.9) Sec. INR (0.87-1.13) APTT (24.2-36.6) Sec. Sodium 138 (137-145) mmol/L Potassium 4.4 (3.6-5.0) mmol/L Chloride 102.1 (98-107) mmol/L Carbon Dioxide 23 (22-30) mmol/L Anion Gap 17 mmol/L BUN 28 H (9-20) mg/dL Creatinine 1.8 H (0.8-1.3) mg/dL Estimated GFR 47 ml/min BUN/Creatinine Ratio 16 % Glucose 133 H (75-100) mg/dL Calcium 8.4 (8.4-10.2) mg/dL Total Bilirubin 0.30 (0.1-1.2) mg/dL AST 22 (5-40) units/L ALT 21 (7-56) units/L Alkaline Phosphatase 58 (35-129) units/L Troponin T < 0.010 (0.00-0.029) ng/mL Total Protein 6.7 (6.3-8.2) g/dL Albumin 3.7 L (3.9-5) g/dL Albumin/Globulin Ratio 1.2 % Blood Type Antibody Screen - EKG Data -: EKG Interpreted by [facility] EKG shows normal: sinus rhythm, axis, intervals, QRS complexes, ST-T waves Rate: normal - EKG Data When compared to previous EKG there are: previous EKG unavailable Interpretation: normal EKG - Medical Decision Making This patient presented to the emergency department with 2.5 hours of epistaxis. There is a moderate amount of blood seen in a basin in front of him with clots and multiple bloody towels. On examination he has a moderate amount of venous bleeding seen coming from the bilateral nasal passages with right greater than left and some blood and clots in the posterior pharynx. Patient was given a few sprays of Afrin into the bilateral nasal passages. Shortly afterwards the patient had a brief unresponsive episode in which he became very diaphoretic and then vomited up a large amount of blood and clots. Most likely he had been slowly swallowing the blood from the epistaxis over the previous 2.5 - 3 hours. The patient was easily arousable and did not have any focal, motor or sensory deficits, and his cranial nerves were intact. At this point I placed a Rhino Rocket into the right nasal passage which greatly decreased the bleeding. However there was still some bleeding seen going around the Rhino Rocket and still some that he was spitting out. The Rhino Rocket was removed and a new Rhino Rocket was placed after it was soaked with TXA. After this Rhino Rocket was placed the epistaxis completely stopped. The patient's labs are mostly unremarkable. White blood cell count of only 12,000 which does not appear consistent with any systemic infection or significant inflammation. Hemoglobin of about 10.5 which does not require any transfusion. No thrombocytopenia. Normal coags. Patient also had a mostly unremarkable metabolic panel and a negative troponin. He did have some mild renal sufficiency with a creatinine of 1.8. We discussed this and the patient knows to follow-up with his PCP and avoid NSAIDs. An EKG was done that did not show any morphology consistent with ST elevation myocardial infarction or any dysrhythmia. Overall the patient was in the emergency department for about 3 hours. There was no return of the epistaxis. No further syncopal episodes. His vital signs have been reassuring throughout his ED course including being afebrile. For all these reason he appears safe for discharge home at this time. He has been instructed to keep the Rhino Rocket in his nasal passage until follow-up with otolaryngology. If he is unable to get into see ENT in a reasonable amount of time that he will return to the emergency department for removal of nasal packing and reevaluation. Critical Care Time: No Critical care attestation.: If time is entered above; I have spent that time in minutes in the direct care of this critically ill patient, excluding procedure time. ED Disposition Clinical Impression: Epistaxis, Renal insufficiency Disposition: - TO HOME OR SELFCARE Is pt being admited?: No Condition: Stable Instructions: Acute Kidney Injury, Adult, Nosebleed, Adult Additional Instructions: Please follow-up with your primary care physician in the next few days. Keep the nasal packing in place until follow-up with a zoo caretaker (Ear Nose Throat Physician). Please try to follow-up with an ENT in the next 2 to 3 days. If you are unable to get in with an ENT, or your PCP, by the end of this week, then please follow-up with either an urgent care or an emergency department for removal of the nasal packing and reevaluation. Take the antibiotics as prescribed. Due to your mild decreased kidney function, please avoid any NSAIDs such as Aleve, ibuprofen, Advil, naproxen. Return to the emergency department with any worsening of your symptoms, new or concerning symptoms not addressed during this current emergency department visit, or with any acute distress. Prescriptions: Amoxicillin/Potassium Clav [Augmentin 875-125 Tablet] 1 each PO BID #10 tablet Referrals: MONTY ALFONSO JR, MD [Primary Care Provider] - 2-3 Days JERRI GUERRERO MD [Staff Physician] - 2-3 Days OLIVA MCINTYRE MD [Staff Physician] - 2-3 Days MARIA M GASTELUM MD [Staff Physician] - 2-3 Days Time of Disposition: 19:30
[2020-07-23 18:42] LABS: Alanine Aminotransferase 21 units/L (7-56); Albumin 3.7 g/dL (3.9-5); BUN/Creatinine Ratio 16; Blood Urea Nitrogen 28 mg/dL (9-20); Calcium 8.4 mg/dL (8.4-10.2); Hemolysis Index 5
[2020-07-23 18:44] LABS: Basophils # (Auto) 0.1 K/mm3 (0.0-0.1); Basophils % (Auto) 0.5 % (0.0-1.8); Eosinophils # (Auto) 0.3 K/mm3 (0.0-0.4); Eosinophils % (Auto) 2.2 % (0.0-4.3); Hematocrit 31.3 % (35.5-45.6); Hemoglobin 10.9 gm/dl (11.8-15.2); Lymphocytes % (Auto) 16.8 % (13.4-35.0); Mean Corpuscular HGB Conc 35 % (32-34); Mean Corpuscular Volume 83 fl (84-94); Monocytes # (Auto) 0.9 K/mm3 (0.0-0.8); Monocytes % (Auto) 7.6 % (0.0-7.3); Platelet Count 343 K/mm3 (140-440); Red Blood Count 3.77 M/mm3 (3.65-5.03); Red Cell Distribution Width 17.5 % (13.2-15.2)
[2020-07-23] MEDS ORDERED: ONDANSETRON 4 MG/2 ML INJ IV ONE (18:50)
[2020-07-23 18:53] LABS: INR 0.99 (0.87-1.13)
[2020-07-23 18:54] LABS: Partial Thromboplastin Time 29.6 Sec. (24.2-36.6)
[2020-07-23] MEDS ORDERED: TRANEXAMIC ACID 1,000 MG/10 ML TP ONE (19:00)
[2020-07-23] MEDS ORDERED: TRANEXAMIC ACID 1,000 MG in SODIUM CHLORIDE 0.9% 100 ML IV NR (19:00)
[2020-07-23 20:35] VITALS: BP 103/64
--- NOTE | 2020-07-26 17:16 | Electrocardiograph Report ---
[facility] Test Date: 2020-07-23 Test Time: 18:56:40 Pat Name: ANNIE BERNSTEIN Department: Room: Gender: M Security Program Manager: JUAN FRANCISCO : 1960 Requested By: KIARA HOWARD Order Number: [id number] Reading MD: Gigi Garza Measurements Intervals [place] Rate: 85 P: 18 IA: 143 QRS: 20 QRSD: 97 T: 37 QT: 393 QTc: 468 Interpretive Statements Sinus rhythm No previous ECG available for comparison Electronically Signed On 07-26-2020 17:16:18 EDT by Gigi Garza
== END 2020-07-23 20:20 | disposition home or self-care (01) ==
LOC: ED 16:58
DX: R04.0 Epistaxis (principal); N28.9 Disorder of kidney and ureter, unspecified; F17.200 Nicotine dependence, unspecified, uncomplicated; Z79.1 Long term (current) use of non-steroidal anti-inflammatories (NSAID); Z79.2 Long term (current) use of antibiotics; Z79.899 Other long term (current) drug therapy
CPT/HCPCS: 30901; 36415; 80053; 84484; 85025; 85610; 85730; 86850; 86900; 86901; 93005; 96374; 99283; J2405

== ENCOUNTER 2021-08-26 15:22 | Outpatient (CLI) | payer OTHER ==
--- NOTE | 2021-08-26 17:19 | XRay Report ---
RIGHT KNEE 2 VIEW(S) INDICATION / CLINICAL INFORMATION: RIGHT KNEE PAIN COMPARISON: None available. FINDINGS: BONES / JOINT(S): Moderate to severe tricompartmental DJD, most pronounced in the medial and patellof emoral compartments. Degenerative enthesopathic change at the superior pole of patella. SOFT TISSUES: No significant abnormality. ADDITIONAL FINDINGS: None. Signer Name: Pilo Jones MD Signed: 08/26/2021 5:15 PM Workstation Name: [email or web address]
--- NOTE | 2021-08-26 17:25 | XRay Report ---
LEFT HIP 3 VIEW(S) INDICATION / CLINICAL INFORMATION: LEFT HIP PAIN COMPARISON: Radiographs dated 12/30/2018, most recent radiographs performed on 07/26/2019 are not avail able for comparison currently. FINDINGS: BONES / JOINT(S): There is periarticular lucency of the left acetabulum concerning for possible loose bjorn. Prior radiographs in July 2019 are not available for comparison but the report does indicate glen t there was lucency in this region. No acute osseous abnormality identified. No hardware complication identified. There is severe DJD of the right hip joint. SOFT TISSUES: No significant abnormality. ADDITIONAL FINDINGS: None. Signer Name: Pilo Jones MD Signed: 08/26/2021 5:21 PM Workstation Name: [id number]
--- NOTE | 2021-08-26 17:34 | XRay Report ---
LUMBAR SPINE 4 VIEWS INDICATION / CLINICAL INFORMATION: LOW BACK PAIN. COMPARISON: None available. FINDINGS: BONES / JOINT(S): No acute fracture or subluxation. Advanced degenerative disc disease at L5-S1 with grade 1 anterolisthesis secondary to chronic bilateral L5 pars defects. Otherwise mild generalized sp ondylosis with small anterior and lateral osteophytes. SOFT TISSUES: No significant abnormality. ADDITIONAL FINDINGS: None. Signer Name: Jose Miguel Freedman MD Signed: 08/26/2021 5:29 PM Workstation Name: [id number]
== END 2021-08-26 15:23 | disposition home or self-care (01) ==
LOC: XRAY 15:22
PROVIDERS: ATTEND Orthopaedic Surgery
DX: M17.11 Unilateral primary osteoarthritis, right knee (principal); M50.10 Cervical disc disorder with radiculopathy, unspecified cervical region; M16.11 Unilateral primary osteoarthritis, right hip; M25.78 Osteophyte, vertebrae; M43.17 Spondylolisthesis, lumbosacral region
CPT/HCPCS: 72110